=== PATIENT | female | born 1945 | race Caucasian/White ===

== ENCOUNTER → 2017-01-06 | Outpatient (CLI) | payer OTHER ==
[~2017-01-06] MED LIST: CALC500C70 PO; LEVO25TA5 PO; LOVA20TA4 PO; MULT-506 PO; RIVA1TAB4 PO; XRL15 PO
[2017-01-06 14:56] LABS: BASO % 0.7 %; BASO ABS # 0.05 K/uL (0-0.2); COMPLETE YES; EOS % 2.1 %; HEMATOCRIT 37.5 % (37-47); IG% 0.3 %; LYMPH % 33.1 %; LYMPH ABS # 2.51 K/uL (1.2-3.4); MEAN CELL VOLUME 90.4 fL (80-100); MEAN CORPUSCULAR HEMOGLOBIN 31.1 pg (25-34); MEAN CORPUSCULAR HGB CONC 34.4 g/dl (32-36); MEAN PLATELET VOLUME 10.5 fL (7.4-10.4); MONO % 7.7 %; NEUT % 56.1 %; PLATELET COUNT 266 K/uL (130-400); RED BLOOD COUNT 4.15 M/uL (4.2-5.4); WHITE BLOOD COUNT 7.58 K/uL (4.8-10.8)
[2017-01-06 15:08] LABS: ALT/SGPT 39 U/L (12-78); BLOOD UREA NITROGEN 14 mg/dl (7-18); BUN/CREATININE RATIO 18.3 (10-20); CALCIUM 9.8 mg/dl (8.5-10.1); CARBON DIOXIDE 24 mmol/L (21-32); CHLORIDE 108 mmol/L (98-107); CHOLESTEROL 182 mg/dl (0-200); CREATININE 0.77 mg/dl (0.60-1.20); GLUCOSE 93 mg/dl (70-99); POTASSIUM 3.8 mmol/L (3.5-5.1); SODIUM 141 mmol/L (136-145); TRIGLYCERIDES 225 mg/dl (0-150); VERY LOW DENSITY LIPOPROT CALC 45 mg/dl
[2017-01-06 15:18] LABS: ALB/GLOB RATIO 1.2 (0.9-2); ALKALINE PHOSPHATASE 64 U/L (45-117); AST/SGOT 28 U/L (15-37); CHOLESTEROL/HDL RATIO 3.6; HDL CHOLESTEROL 51 mg/dl; LDL CHOLESTEROL CALCULATED 86 mg/dl
== END | disposition home or self-care (01) ==
LOC: C.LABBC 09:41
PROVIDERS: ATTEND Family Medicine
DX: E03.9 Hypothyroidism, unspecified (principal); M81.0 Age-related osteoporosis without current pathological fracture; E78.00 Pure hypercholesterolemia, unspecified; Z13.0 Encounter for screening for diseases of the blood and blood-forming organs and certain disorders involving the immune mechanism

== ENCOUNTER → 2017-03-03 | Outpatient (CLI) | payer OTHER ==
--- NOTE | 2017-03-03 15:48 | MAMMOGRAPHY REPORT ---
BILATERAL DIGITAL SCREENING MAMMOGRAM WITH CAD: 03/03/2017 CLINICAL HISTORY: Routine screening. Patient has no complaints. TECHNIQUE: Bilateral CC and MLO views were obtained. Current study was also evaluated with a Comput er Aided Detection (CAD) system. COMPARISON: Comparison is made to exams dated: 02/29/2016 mammogram, 02/27/2015 mammogram - [facility], 11/11/2007, and 11/10/2006. BREAST COMPOSITION: There are scattered areas of fibroglandular density in both breasts. FINDINGS: There is stable nodular asymmetry in the medial anterior right breast, and stable focal as ymmetry in the left upper outer quadrant. No new suspicious mass, architectural distortion or clust er of microcalcifications is seen. IMPRESSION: ACR BI-RADS CATEGORY 1: NEGATIVE There is no mammographic evidence of malignancy. A 1 year screening mammogram is recommended. The p atient will receive written notification of the results. Approximately 10% of breast cancers are not detected with mammography. A negative mammographic repor t should not delay biopsy if a clinically suggestive mass is present. Danica Kaiser M.D. ay/:03/03/2017 14:40:52 Child Life Therapist: Yancy Moeller, [facility] letter sent: Normal 1/2 BI-RADS Code: ACR BI-RADS Category 1: Negative
== END | disposition home or self-care (01) ==
LOC: C.MAMM 11:25
PROVIDERS: ATTEND Family Medicine
DX: Z12.31 Encounter for screening mammogram for malignant neoplasm of breast (principal)

== ENCOUNTER 2017-03-10 17:46 | Inpatient (IN) | payer OTHER ==
[~2017-03-10] VITALS: Ht 167.6 cm; Wt 72.0 kg
[~2017-03-10 17:46] MED LIST changes: -OPTIRAY 320 IV PRN; -RIVA1TAB4 PO; -XRL15 PO
[2017-03-10 18:31] LABS: BASO % 0.3 %; BASO ABS # 0.03 K/uL (0-0.2); COMPLETE YES; EOS % 0.6 %; HEMATOCRIT 38.7 % (37-47); IG% 0.2 %; LYMPH % 19.4 %; LYMPH ABS # 1.81 K/uL (1.2-3.4); MEAN CELL VOLUME 90.8 fL (80-100); MEAN CORPUSCULAR HEMOGLOBIN 30.8 pg (25-34); MEAN CORPUSCULAR HGB CONC 33.9 g/dl (32-36); MEAN PLATELET VOLUME 9.8 fL (7.4-10.4); MONO % 11.6 %; NEUT % 67.9 %; PLATELET COUNT 231 K/uL (130-400); RED BLOOD COUNT 4.26 M/uL (4.2-5.4); WHITE BLOOD COUNT 9.32 K/uL (4.8-10.8)
[2017-03-10 18:45] LABS: PARTIAL THROMBOPLASTIN RATIO 1.1; PROTHROMBIN TIME (PATIENT) 11.1 SECONDS (9.0-12.0)
[2017-03-10 18:53] LABS: BLOOD UREA NITROGEN 15 mg/dl (7-18); BUN/CREATININE RATIO 19.2 (10-20); CARBON DIOXIDE 26 mmol/L (21-32); CHLORIDE 106 mmol/L (98-107); CREATININE 0.77 mg/dl (0.60-1.20); GLUCOSE 125 mg/dl (70-99); POTASSIUM 3.5 mmol/L (3.5-5.1); SODIUM 140 mmol/L (136-145)
[2017-03-10] MEDS ORDERED: MAGNESIUM HYDROXIDE SUSP 30 ML UDC PO PRN (20:00)
[2017-03-10] MEDS ORDERED: ONDANSETRON INJ 2 MG/ML 2 ML VIAL IV PRN (20:00)
[2017-03-10] MEDS ORDERED: ACETAMINOPHEN 325 MG TAB PO PRN (20:00)
--- NOTE | 2017-03-10 20:03 | History and Physical ---
History & Physical Date & Time of Service: March 10, 2017 at 19:54 Chief Complaint: Sent From Radiology For Pe Primary Care Physician: Jacinto Mariscal D.O.Int.Med. History of Present Illness Source: patient 71 y/o F c/o chest pain. Pt states she started having R sided chest pain under her breast moving into the R shoulder on Friday night that persisted through the weekend. It was on and off, but increasing so she saw a PA at her PCPs office. She was sent for a CXR that was neg, so a CTA was done. She was called to come to the ED because it showed b/l PEs. Pt states she did have a bit of SOB over the last few days with exertion, but not much. She more noted increased chest pain with deep breaths. No L sided chest pain. Has been eating without issue. Denies LE pain or cramping. She has been able to walk on her treadmill 5d/week as her usual. No recent extended travel or immobility. No recent surgery or procedures. She does not take any hormones. She has no personal hx of smoking, but she does have second hand exposure from her now --he in 2006,but prior to this he smoked in the home and in the car. Pt denies fever, abd pain, n/v/c/d, LE pain or swelling. ROS as noted above, otherwise neg. Last c-scope was 11/2015 and WNL Last mammo was 03/01/17 and WNL No hx of cancer Denies FH of blood clots Past Medical/Surgical History Medical Problems: (1) High cholesterol Status: Chronic (2) Hypothyroidism Status: Chronic Family History Family history was reviewed; no changes noted. Social History Smoking Status: Never Smoker (second hand exposure) Alcohol Use: none Drug Use: none Multi-Drug Resistant Organisms History of MDRO: No Allergies Coded Allergies: NO KNOWN DRUG ALLERGIES (Verified Allergy, Unknown, ., 12/11/15) Home Medications Scheduled Calcium/Vitamin D (Os-Adalberto 500 Plus D), 1 TAB PO QAM Levothyroxine Sodium (Levothyroxine Sodium), 1 TAB PO QPM Lovastatin (Mevacor), 20 MG PO QAM Multivitamin (Multivitamin), 1 TAB PO QAM Physical Exam Vital Signs Date Time Temp Pulse Resp B/P Pulse Ox O2 Delivery O2 Flow Rate FiO2 03/10/17 18:10 101 03/10/17 18:08 98 Room Air 03/10/17 17:52 36.8 61 18 160/105 92 Room Air General Appearance: WD/WN, no apparent distress Head: normocephalic, atraumatic Eyes: normal inspection Respiratory/Chest: lungs clear, normal breath sounds, no respiratory distress Cardiovascular: regular rate, rhythm, no edema Abdomen/GI: non tender, soft Extremities/Musculoskelatal: no calf tenderness, no pedal edema Neurologic/Psych: alert, oriented x 3 Skin: normal color, warm/dry Diagnostics Laboratory Results Results Past 24 Hours Test 03/10/17 18:00 03/10/17 19:46 Range/Units White Blood Count 9.32 4.8-10.8 K/uL Red Blood Count 4.26 4.2-5.4 M/uL Hemoglobin 13.1 12.0-16.0 g/dL Hematocrit 38.7 37-47 % Mean Corpuscular Volume 90.8 80-100 fL Mean Corpuscular Hemoglobin 30.8 25-34 pg Mean Corpuscular Hemoglobin Concent 33.9 32-36 g/dl Platelet Count 231 130-400 K/uL Mean Platelet Volume 9.8 7.4-10.4 fL Neutrophils (%) (Auto) 67.9 % Lymphocytes (%) (Auto) 19.4 % Monocytes (%) (Auto) 11.6 % Eosinophils (%) (Auto) 0.6 % Basophils (%) (Auto) 0.3 % Neutrophils # (Auto) 6.32 1.4-6.5 K/uL Lymphocytes # (Auto) 1.81 1.2-3.4 K/uL Monocytes # (Auto) 1.08 0.11-0.59 K/uL Eosinophils # (Auto) 0.06 0-0.5 K/uL Basophils # (Auto) 0.03 0-0.2 K/uL RDW Standard Deviation 44.8 36.4-46.3 fL RDW Coefficient of Variation 13.6 11.5-14.5 % Immature Granulocyte % (Auto) 0.2 % Immature Granulocyte # (Auto) 0.02 0.00-0.02 K/uL Prothrombin Time 11.1 9.0-12.0 SECONDS Prothromb Time International Ratio 1.0 0.9-1.1 Activated Partial Thromboplast Time 29.5 21.0-31.0 SECONDS Partial Thromboplastin Ratio 1.1 Sodium Level 140 136-145 mmol/L Potassium Level 3.5 3.5-5.1 mmol/L Chloride Level 106 98-107 mmol/L Carbon Dioxide Level 26 21-32 mmol/L Anion Gap 8.0 3-11 mmol/L Blood Urea Nitrogen 15 7-18 mg/dl Creatinine 0.77 0.60-1.20 mg/dl Est Creatinine Clear Calc Drug Dose 67.0 ml/min Estimated GFR () 89.4 Estimated GFR (Non- 77.1 BUN/Creatinine Ratio 19.2 10-20 Random Glucose 125 70-99 mg/dl Calcium Level 9.0 8.5-10.1 mg/dl Troponin I < 0.015 0-0.045 ng/ml Diagnostic Radiology CTA: 1. Study is positive for several lower lobe pulmonary emboli. 2. No evidence for a main or central pulmonary embolus. 3. Mild distention of the root of the aorta at 4.2 cm. 4. Mild right basilar/infiltrative change with a trace pleural effusion right base Impression Assessment and Plan 71 y/o F who was admitted on 03/10 for b/l PE Chest pain: b/l PE noted on CTA Etiology uncertain Neg for risk factors, although with substantial second hand smoke exposure Will need CT chest with contrast, however did have CTA today and will need to monitor renal function prior to further testing C-scope and mammo neg recently CBC WNL Hypercoag panel pending, ordered to be drawn prior to starting heparin given pt is stable Will need ongoing anticoag, CM to help with determining cost but pt would like a new anticoag agent if possible Hypothyroid: continue home meds HLD: continue home meds Other: Full code Heparin for DVT proph Reg diet Level of Care Telemetry Resuscitation Status FULL RESUSCITATION VTE Prophylaxis VTE Risk Assessment Done? Y/N: Yes Risk Level: High
[2017-03-10] MEDS ORDERED: HEPARIN SOD 5000 UNIT/0.5 ML CARP ONE (20:25)
[2017-03-10] MEDS ORDERED: HEPARIN 25000 UNIT/500 ML D5W ONE (20:25)
[2017-03-10] MEDS ORDERED: HEPARIN 25,000 UNIT/500ML D5W 500 ML IV PRN (20:45)
[2017-03-10 21:30] VITALS: BP 148/104; PULSE 91; TEMP 36.8; O2SAT 100; Ht 167.6 cm; Wt 72.0 kg
[2017-03-10 23:51] VITALS: BP 155/89; PULSE 90; TEMP 36.6; O2SAT 94
--- NOTE | 2017-03-11 01:33 | EMERGENCY ROOM VISIT NOTE ---
History Report prepared by Edu: Nico Roy Under the Supervision of: Dr. Guerrero Cid M.D. First contact with patient: 17:56 Chief Complaint: CHEST PAIN Stated Complaint: SENT FROM RADIOLOGY FOR PE History of Present Illness The patient is a 71 year old female who presents to the Emergency Room with complaints of right lower chest pain starting 2 days ago. She describes it as a sharp pain. She reports some worsening pain with deep breathing. She currently denies any chest pain. She had a CT scan today which showed pulmonary emboli. She denies fevers, severe headaches, cough, shortness of breath, heart palpitations, abdominal pain, black/bloody stools, bilateral lower extremity swelling, or any other complaints. She does not smoke cigarettes. She did not have any recent long trips. The patient walks on a treadmill about 5 days a week. She denies any personal history of cancer, internal bleeding, or low platelets. She has a history of hypothyroidism and high cholesterol but otherwise denies any other medical problems. She denies any family history of blood clots. Source of History: patient Onset: 2 days ago Position: chest (right lower) Symptom Intensity: No pain currently Quality: sharp Modifying Factors (Worsening): breathing (deep) Associated Symptoms: No SOB, No abdominal pain, No cough, No fevers, No headache Review of Systems See HPI for pertinent positives & negatives. A total of 10 systems reviewed and were otherwise negative. Past Medical & Surgical Medical Problems: (1) Chest pain (2) High cholesterol (3) Hypothyroidism Family History Patient reports no known family medical history. Social History Smoking Status: Never Smoker Marital Status: Occupation Status: retired Current/Historical Medications Scheduled Calcium/Vitamin D (Os-Adalberto 500 Plus D), 1 TAB PO QAM Levothyroxine Sodium (Levothyroxine Sodium), 1 TAB PO QPM Lovastatin (Mevacor), 20 MG PO QAM Multivitamin (Multivitamin), 1 TAB PO QAM Allergies Coded Allergies: NO KNOWN DRUG ALLERGIES (Verified Allergy, Unknown, ., 12/11/15) Physical Exam Vital Signs Date Time Temp Pulse Resp B/P Pulse Ox O2 Delivery O2 Flow Rate FiO2 03/10/17 18:10 101 03/10/17 18:08 98 Room Air 03/10/17 17:52 36.8 61 18 160/105 92 Room Air Physical Exam Constitutional: Vital signs reviewed. Eyes: Pupils are equal round reactive to light. Conjunctiva are noninjected. ENT: Pharynx is clear without erythema or exudate. Mucous membranes are moist. Neck supple without meningeal signs. Respiratory: Clear to auscultation bilaterally. Breath sounds are equal bilaterally. Cardiovascular: Regular rate and rhythm. No rubs or gallops. GI: Soft, nondistended and nontender. Bowel sounds are present. Musculoskeletal: No peripheral edema. No lower extremity tenderness. Integumentary: No cyanosis. Neurological: The patient is awake and alert. No focal deficits. Psychiatric: Slightly anxious. Medical Decision & Procedures Laboratory Results 03/10/17 18:00 Red Blood Count 4.26, Mean Corpuscular Volume 90.8, Mean Corpuscular Hemoglobin 30.8, Mean Corpuscular Hemoglobin Concent 33.9, Mean Platelet Volume 9.8, Neutrophils (%) (Auto) 67.9, Lymphocytes (%) (Auto) 19.4, Monocytes (%) (Auto) 11.6, Eosinophils (%) (Auto) 0.6, Basophils (%) (Auto) 0.3, Neutrophils # (Auto ) 6.32, Lymphocytes # (Auto) 1.81, Monocytes # (Auto) 1.08, Eosinophils # (Auto ) 0.06, Basophils # (Auto) 0.03 03/10/17 18:00 Test 03/10/17 18:00 White Blood Count 9.32 K/uL (4.8-10.8) Red Blood Count 4.26 M/uL (4.2-5.4) Hemoglobin 13.1 g/dL (12.0-16.0) Hematocrit 38.7 % (37-47) Mean Corpuscular Volume 90.8 fL (80-100) Mean Corpuscular Hemoglobin 30.8 pg (25-34) Mean Corpuscular Hemoglobin Concent 33.9 g/dl (32-36) Platelet Count 231 K/uL (130-400) Mean Platelet Volume 9.8 fL (7.4-10.4) Neutrophils (%) (Auto) 67.9 % Lymphocytes (%) (Auto) 19.4 % Monocytes (%) (Auto) 11.6 % Eosinophils (%) (Auto) 0.6 % Basophils (%) (Auto) 0.3 % Neutrophils # (Auto) 6.32 K/uL (1.4-6.5) Lymphocytes # (Auto) 1.81 K/uL (1.2-3.4) Monocytes # (Auto) 1.08 K/uL (0.11-0.59) Eosinophils # (Auto) 0.06 K/uL (0-0.5) Basophils # (Auto) 0.03 K/uL (0-0.2) RDW Standard Deviation 44.8 fL (36.4-46.3) RDW Coefficient of Variation 13.6 % (11.5-14.5) Immature Granulocyte % (Auto) 0.2 % Immature Granulocyte # (Auto) 0.02 K/uL (0.00-0.02) Prothrombin Time 11.1 SECONDS (9.0-12.0) Prothromb Time International Ratio 1.0 (0.9-1.1) Activated Partial Thromboplast Time 29.5 SECONDS (21.0-31.0) Partial Thromboplastin Ratio 1.1 Anion Gap 8.0 mmol/L (3-11) Est Creatinine Clear Calc Drug Dose 67.0 ml/min Estimated GFR () 89.4 Estimated GFR (Non- 77.1 BUN/Creatinine Ratio 19.2 (10-20) Calcium Level 9.0 mg/dl (8.5-10.1) Troponin I < 0.015 ng/ml (0-0.045) Laboratory results as reviewed by me. ECG Indication: chest pain Rate (beats per minute): 99 Rhythm: normal sinus Findings: nonspecific-ST abn (Lateral), no ectopy ED Course 1758: The patient was evaluated in room A04B. A complete history and physical exam was performed. 1818: I reevaluated the patient who is resting comfortably. I discussed the results and findings with the patient. She verbalized agreement of the treatment plan. I spoke with Dr. Galloway with [facility]. The patient will be evaluated for further management and care. Medical Decision This is a 71-year-old female presents with chest pain. I did perform a limited focused review of portions of the patient's old chart on the electronic medical record. The patient had a CT of chest today which was positive for several lower lobe pulmonary emboli. I did evaluate the patient as noted above. The patient is currently not having any chest discomfort. She has no known risk factors for pulmonary embolism but she did have a CT scan today which showed bilateral pulmonary emboli. IV access was established. The patient was placed on a continuous ekg monitor tech. I did order and personally review the patient's 12-lead EKG as described above. I did order and review the patient's blood work as noted in the electronic medical record. I did discuss the case with the management and the hospitalist and case packer and sealer. She will be hospitalized for anticoagulation and further evaluation. Consults Time Called: 1807 Consulting Physician: Dr. Galloway with [facility] Returned Call: [address] Galloway with [facility]. Impression Primary Impression: Bilateral pulmonary embolism Scribe Attestation The scribe's documentation has been prepared under my direct and personally reviewed by me in its entirety. I confirm that the note above accurately reflects all work, treatment, procedures, and medical decision making performed by me. Departure Information Dispostion Being Evaluated By Hospitalist Referrals Jacinto Mariscal, Shawn.O.Int.Med. (PCP) Patient Instructions My [facility]
[2017-03-11 03:17] LABS: PARTIAL THROMBOPLASTIN RATIO 4.2
[2017-03-11 03:29] VITALS: BP 143/83; PULSE 95; TEMP 36.6; O2SAT 97
[2017-03-11] MEDS: LEVOTHYROXINE 25 MCG TAB PO SCH (06:00)
[2017-03-11 07:33] LABS: HEMATOCRIT 34.9 % (37-47); MEAN CELL VOLUME 90.6 fL (80-100); MEAN CORPUSCULAR HEMOGLOBIN 30.9 pg (25-34); MEAN CORPUSCULAR HGB CONC 34.1 g/dl (32-36); MEAN PLATELET VOLUME 10.3 fL (7.4-10.4); PLATELET COUNT 221 K/uL (130-400); RED BLOOD COUNT 3.85 M/uL (4.2-5.4); WHITE BLOOD COUNT 9.33 K/uL (4.8-10.8)
[2017-03-11 07:55] LABS: PARTIAL THROMBOPLASTIN RATIO 2.6
[2017-03-11 08:07] VITALS: BP 143/87; PULSE 102; TEMP 36.8; O2SAT 97
[2017-03-11] MEDS: CALCIUM 600MG + VIT D 400 IU TAB PO SCH (08:12)
[2017-03-11] MEDS: MULTIVITAMIN TAB PO SCH (08:12)
[2017-03-11] MEDS: LOVASTATIN 20 MG TAB PO SCH (08:12)
[2017-03-11] MEDS ORDERED: NURSING VERBAL MED ORDER ONE (08:45)
[2017-03-11] MEDS: MoRPHine SULFATE 2 MG/ML CARP IV PRN ×2 (08:50→15:28)
[2017-03-11 12:07] LABS: PARTIAL THROMBOPLASTIN RATIO 2.4
[2017-03-11 12:45] VITALS: BP 148/60; PULSE 86; TEMP 36.9; O2SAT 92
[2017-03-11 15:30] VITALS: BP 141/58; PULSE 98; TEMP 36.9; O2SAT 96
--- NOTE | 2017-03-11 16:51 | Oncology Consultation ---
Oncology/Heme Consultation Date of Consultation: March 11, 2017. Attending Physician: Cassia Whitley MD Reason for Consultation: Unprovoked pulmonary emboli History of Present Illness Ms. Gutierrez is a 71-year-old female without much for past medical history. Over the weekend she developed right lower thoracic pleuritic-type chest pain that continued. She was evaluated and found to have bilateral pulmonary emboli on a chest CT angiogram. I'm not able to elicit a provoking reason for a thromboembolic episode. She has not been taking any sort of hormone replacement. There is not been any trauma. It is not bit a long periods of being stationary. Is not been any recent surgeries. There is no family history of thromboembolic issues.. She denies weight loss. She denies any fever or chills. She really doesn't even complain of shortness of breath. She is not seeing any blood in her stool. Colonoscopy was normal recently and a mammogram done very recently was read as benign. Past Medical/Surgical History Medical Problems: (1) Bilateral pulmonary embolism Status: Acute Family History Patient reports no known family medical history. No history of blood clots in the family Social History Negative for significant smoking or alcohol usage Smoking Status: Never Smoker Alcohol Use: none Drug Use: none Marital Status: Occupation Status: retired Allergies Coded Allergies: NO KNOWN DRUG ALLERGIES (Verified Allergy, Unknown, ., 12/11/15) Home Medications Scheduled Calcium/Vitamin D (Os-Adalberto 500 Plus D), 1 TAB PO QAM Levothyroxine Sodium (Levothyroxine Sodium), 1 TAB PO QPM Lovastatin (Mevacor), 20 MG PO QAM Multivitamin (Multivitamin), 1 TAB PO QAM Current Inpatient Medications Current Inpatient Medications Medications (Trade) Dose Ordered Sig/Jon Route Start Time Stop Time Status Last Admin Dose Admin Acetaminophen (Tylenol Tab) 650 mg Q4H PRN PO 03/10/17 20:00 04/09/17 19:59 03/11/17 04:32 650 MG Magnesium Hydroxide (Milk Of Magnesia Susp) 30 ml Q12H PRN PO 03/10/17 20:00 04/09/17 19:59 Ondansetron HCl (Zofran Inj) 4 mg Q6H PRN IV 03/10/17 20:00 04/09/17 19:59 Calcium/Vitamin D (Caltrate Plus Tab) 1 tab QAM PO 03/11/17 09:00 04/10/17 08:59 03/11/17 08:12 1 TAB Levothyroxine Sodium (Synthroid Tab) 25 mcg DAILYBB PO 03/11/17 06:00 04/10/17 05:59 03/11/17 06:00 25 MCG Lovastatin (Mevacor Tab) 20 mg QAM PO 03/11/17 09:00 04/10/17 08:59 03/11/17 08:12 20 MG Multivitamins 1 tab 1 tab QAM PO 03/11/17 09:00 04/10/17 08:59 03/11/17 08:12 1 TAB Heparin Sodium/ Dextrose (Heparin 25,000 Unit/500ml D5W) 500 ml @ 20 mls/hr Q24H PRN IV 03/10/17 20:45 04/09/17 20:44 Morphine Sulfate (MoRPHine SULFATE INJ) 2 mg Q4H PRN IV 03/11/17 09:00 03/25/17 08:59 03/11/17 15:28 2 MG Ibuprofen (Motrin Tab) 600 mg TID PRN PO 03/11/17 16:30 04/10/17 16:29 Review of Systems Constitutional: Negative for weight loss, night sweats, or fever Eyes: Negative for event change of vision ENT: Negative for epistaxis, nasal discharge, sore throat, or deafness Cardiovascular: Negative for chest pain, palpitations, dizziness, diaphoresis Respiratory: Negative for new shortness of breath,hemoptysis, or purulent cough Gastrointestinal: Negative for diarrhea, hematemesis, melena, nausea, vomiting , or dyspepsia Integumentary (skin): Negative for rash or jaundice discoloration Genitourinary: Negative for urinary frequency, hematuria, or dysuria Neurological: Negative for weakness, seizure activity, headache, or dizziness Lymphatic/Hematologic: Negative for petechiae, bleeding or new adenopathy Musculoskeletal: Negative for new joint or back pain Allergic/Immunologic: Negative for unusual rash or pruritis. Physical Exam Date Time Temp Pulse Resp B/P Pulse Ox O2 Delivery O2 Flow Rate FiO2 03/11/17 16:00 Room Air 03/11/17 15:30 36.9 98 20 141/58 96 Room Air 03/11/17 12:45 36.9 86 18 148/60 92 03/11/17 12:00 Room Air 03/11/17 08:07 36.8 102 18 143/87 97 03/11/17 08:00 Room Air 03/11/17 04:00 Room Air 03/11/17 03:29 36.6 95 17 143/83 97 Room Air 03/11/17 00:00 Room Air 03/10/17 23:51 36.6 90 17 155/89 94 Room Air 03/10/17 21:30 36.8 91 18 148/104 100 Room Air 03/10/17 20:45 36.8 90 20 157/95 98 03/10/17 20:30 90 20 157/95 98 Room Air 03/10/17 18:10 101 03/10/17 18:08 98 Room Air 03/10/17 17:52 36.8 61 18 160/105 92 Room Air Constitutional: vitals are stable. Eyes: Eyes are [place] EOMI without conjuctival erythema or icterus. ENT: External examination was negative for masses. Neck: Negative for masses or palpable thyromegaly Respiratory: Lung sounds were generally clear bilaterally Cardiovascular: Heart was RRR without significant murmur, gallops aoe rubs Gastrointestinal: No palpable hepatic or splenomegaly. The abdomen was soft with normal bowel sounds. Lymphatic system: there was no palpable peripheral lymphadenopathy Musculoskeletal System: The musculoskeletal system seemed concordant with age. Skin: The skin was negative for jaundice. Neurologic exam: The exam was negative for any focal findings. Deep tendon reflexes were equal and symmetrical. Psychiatric exam: Was essentially negative with normal mood and effect. Breast exam: Done with patient permission was negative for palpable masses or corollary supraclavicular or axillary palpable adenopathy. Exam was witnessed by either a relative, network support analyst, or clinic staff. Extremities: Negative for significant edema or erythema or tenderness. Laboratory Results Last 24 Hours Test 03/10/17 18:00 03/10/17 20:25 03/11/17 02:23 03/11/17 06:55 White Blood Count 9.32 K/uL 9.33 K/uL Red Blood Count 4.26 M/uL 3.85 M/uL Hemoglobin 13.1 g/dL 11.9 g/dL Hematocrit 38.7 % 34.9 % Mean Corpuscular Volume 90.8 fL 90.6 fL Mean Corpuscular Hemoglobin 30.8 pg 30.9 pg Mean Corpuscular Hemoglobin Concent 33.9 g/dl 34.1 g/dl Platelet Count 231 K/uL 221 K/uL Mean Platelet Volume 9.8 fL 10.3 fL Neutrophils (%) (Auto) 67.9 % Lymphocytes (%) (Auto) 19.4 % Monocytes (%) (Auto) 11.6 % Eosinophils (%) (Auto) 0.6 % Basophils (%) (Auto) 0.3 % Neutrophils # (Auto) 6.32 K/uL Lymphocytes # (Auto) 1.81 K/uL Monocytes # (Auto) 1.08 K/uL Eosinophils # (Auto) 0.06 K/uL Basophils # (Auto) 0.03 K/uL RDW Standard Deviation 44.8 fL 46.1 fL RDW Coefficient of Variation 13.6 % 13.8 % Immature Granulocyte % (Auto) 0.2 % Immature Granulocyte # (Auto) 0.02 K/uL Prothrombin Time 11.1 SECONDS Prothromb Time International Ratio 1.0 Activated Partial Thromboplast Time 29.5 SECONDS 109.9 SECONDS 67.6 SECONDS Partial Thromboplastin Ratio 1.1 4.2 2.6 Sodium Level 140 mmol/L Potassium Level 3.5 mmol/L Chloride Level 106 mmol/L Carbon Dioxide Level 26 mmol/L Anion Gap 8.0 mmol/L Blood Urea Nitrogen 15 mg/dl Creatinine 0.77 mg/dl Est Creatinine Clear Calc Drug Dose 67.0 ml/min Estimated GFR () 89.4 Estimated GFR (Non- 77.1 BUN/Creatinine Ratio 19.2 Random Glucose 125 mg/dl Calcium Level 9.0 mg/dl Troponin I < 0.015 ng/ml Test 03/11/17 11:42 Activated Partial Thromboplast Time 62.6 SECONDS Partial Thromboplastin Ratio 2.4 Assessment & Plan Patient appears to have had an unprovoked thromboembolic phenomena. I would ask for a Doppler of the lower extremities as well as an ultrasound of the abdomen. She's had a number of blood tests done looking for underlying thrombophilic issues. She is a fairly active 71-year-old female. Neurologically she is intact. Her lifestyle is such that she doesn't tend to use heavy machinery and is not prone to falling. With this sort of clot as a first event and being unprovoked, I believe that she should consider at this juncture lifelong anticoagulation. Her energy daughter were interested in Xarelto and that would be reasonable.. I will order the ultrasound of the abdomen as well as the Doppler lower extremities.
[2017-03-11] MEDS ORDERED: MoRPHine SULFATE 4 MG/ML 1 ML CARP\\VIAL IV PRN (17:00)
[2017-03-11] MEDS: IBUPROFEN 600 MG TAB PO PRN (17:40)
[2017-03-11 19:27] VITALS: BP 116/75; PULSE 97; TEMP 37.1; O2SAT 94
[2017-03-11 20:00] VITALS: O2SAT 94
--- NOTE | 2017-03-12 00:03 | Hospitalist Progress Note ---
Hospitalist Progress Note Date of Service March 11, 2017. Subjective Pt evaluation today including: conversation w/ patient, conversation w/ family Patient continues to have right-sided pleuritic chest pain. She is up-to-date on all cancer screenings, labs are normal. No symptoms of underlying malignancy but does complain of some abdominal bloating for several days. No leg pain or extremity pain or swelling except has noticed her hands are little swollen just since being admitted. Constitutional: No fever Eyes: No problem reported ENT: No sore throat Respiratory: No cough, No shortness of breath Cardiovascular: + chest pain, No edema, No palpitations Breast: No breast lump, No breast pain Abdomen: + see HPI, No GI bleeding, No constipation, No diarrhea, No nausea , No pain, No vomiting Musculoskeletal: + joint pain (right thumb and left knee chronic) Female : No abnormal vaginal bleeding, No hematuria, No vaginal discharge Neurologic: No numbness/tingling, No problem reported (no headaches) Psychiatric: No problem reported Heme: No abnormal bleeding/bruising Endo: No fatigue Skin: No new/changing skin lesions, No rash All Other Systems: Reviewed and Negative Objective Vital Signs Date Time Temp Pulse Resp B/P Pulse Ox O2 Delivery O2 Flow Rate FiO2 03/11/17 20:00 94 Room Air 03/11/17 19:27 37.1 97 20 116/75 94 Room Air 03/11/17 16:00 Room Air 03/11/17 15:30 36.9 98 20 141/58 96 Room Air 03/11/17 12:45 36.9 86 18 148/60 92 03/11/17 12:00 Room Air 03/11/17 08:07 36.8 102 18 143/87 97 03/11/17 08:00 Room Air 03/11/17 04:00 Room Air 03/11/17 03:29 36.6 95 17 143/83 97 Room Air 03/11/17 00:00 Room Air Physical Exam General Appearance: WD/WN, no apparent distress Eyes: normal inspection, PERRL, EOMI, sclerae normal ENT: hearing grossly normal, pharynx normal Neck: supple, no adenopathy, thyroid normal, no JVD, trachea midline Respiratory/Chest: lungs clear, normal breath sounds, no respiratory distress, no accessory muscle use, + decreased breath sounds (right base) Cardiovascular: regular rate, rhythm, no edema, no gallop, no murmur Abdomen: normal bowel sounds, non tender, soft, no organomegaly, no pulsatile mass Extremities: non-tender, normal inspection, no pedal edema, no calf tenderness Neurologic/Psychiatric: alert, normal mood/affect, oriented x 3 Skin: normal color, warm/dry, no rash Lymphatic: no adenopathy Laboratory Results Last 24 Hours Test 03/11/17 02:23 03/11/17 06:55 03/11/17 11:42 Activated Partial Thromboplast Time 109.9 SECONDS 67.6 SECONDS 62.6 SECONDS Partial Thromboplastin Ratio 4.2 2.6 2.4 White Blood Count 9.33 K/uL Red Blood Count 3.85 M/uL Hemoglobin 11.9 g/dL Hematocrit 34.9 % Mean Corpuscular Volume 90.6 fL Mean Corpuscular Hemoglobin 30.9 pg Mean Corpuscular Hemoglobin Concent 34.1 g/dl RDW Standard Deviation 46.1 fL RDW Coefficient of Variation 13.8 % Platelet Count 221 K/uL Mean Platelet Volume 10.3 fL Assessment and Plan 71 y/o F who was admitted on 03/10 for b/l PE that was unprovoked Chest pain: b/l PE noted on CTA, small right-sided pleural effusion likely secondary to PE Etiology uncertain Neg for risk factors, although with substantial second hand smoke exposure C-scope in 2015 negative and mammo February 2017 neg CBC WNL Hypercoag panel pending -Check lower extremity Dopplers bilaterally, checking abdominal ultrasound given abdominal bloating to rule out ovarian mass -Continue heparin drip for 48 hours and then transitioned to Xarelto as per patient's request-will need anticoagulation for 3-6 months -Continue morphine and NSAIDs as needed for pleuritic chest pain -Should have repeat chest x-ray or chest CT to ensure that pleural effusion is clearing and nothing underlying Hypothyroid: continue home meds HLD: continue home meds Other: Full code Heparin for DVT proph/treatment Reg diet
[2017-03-12 00:09] VITALS: BP 111/70; PULSE 87; TEMP 36.8; O2SAT 95
[2017-03-12 04:02] VITALS: BP 127/74; PULSE 84; TEMP 36.5; O2SAT 98
[2017-03-12] MEDS: LEVOTHYROXINE 25 MCG TAB PO SCH (06:21)
--- NOTE | 2017-03-12 07:01 | DIAGNOSTIC IMAGING REPORT ---
BILATERAL LOWER EXTREMITY VENOUS DOPPLER HISTORY: unprovoked thromboembolic episode COMPARISON STUDY: None. FINDINGS: Acute DVT right popliteal vein. All remaining venous structures are unremarkable. IMPRESSION: Acute deep venous thrombosis right popliteal vein Electronically signed by: Ben Johnson M.D. 03/12/2017 7:00 AM Dictated Date/Time: 03/12/2017 6:59 AM
[2017-03-12 07:16] LABS: BASO % 0.5 %; BASO ABS # 0.04 K/uL (0-0.2); COMPLETE YES; EOS % 1.7 %; HEMATOCRIT 35.5 % (37-47); IG% 0.2 %; LYMPH % 38.8 %; LYMPH ABS # 3.19 K/uL (1.2-3.4); MEAN CELL VOLUME 91.3 fL (80-100); MEAN CORPUSCULAR HEMOGLOBIN 30.3 pg (25-34); MEAN CORPUSCULAR HGB CONC 33.2 g/dl (32-36); MEAN PLATELET VOLUME 9.6 fL (7.4-10.4); MONO % 8.4 %; NEUT % 50.4 %; PLATELET COUNT 260 K/uL (130-400); RED BLOOD COUNT 3.89 M/uL (4.2-5.4); WHITE BLOOD COUNT 8.22 K/uL (4.8-10.8)
--- NOTE | 2017-03-12 07:16 | DIAGNOSTIC IMAGING REPORT ---
ULTRASOUND ABDOMEN COMPLETE CLINICAL HISTORY: Thromboembolic event. Pulmonary embolus. COMPARISON STUDY: No priors. TECHNIQUE: Real-time, grayscale, and color flow sonography of the abdomen was performed. Images are reviewed in the transverse and longitudinal planes. FINDINGS: Liver: The liver is normal in size and echotexture. There is no intrahepatic biliary ductal dilatation. The main portal vein is patent. Gallbladder: There is a large shadowing calcified gallstone which measures up to 2.2 cm. The gallbladder is otherwise normal in appearance. The gallbladder wall appears mildly thickened measuring 4 mm. No pericholecystic fluid is seen. A sonographic Puente's sign is reportedly present. The common bile duct measures up to 0.4 cm in diameter. Pancreas: Visualized portions of the pancreatic head and body demonstrate increased echotexture suggesting fatty replacement. The splenic vein is patent. Spleen: The spleen is normal in size and echotexture, measuring 7.6 cm in length. Kidneys: The kidneys demonstrate cortical atrophy. There is no hydronephrosis. The right kidney measures 9.6 cm in length and the left kidney measures 11.4 cm in length. No shadowing calculi are identified. A subcentimeter well-circumscribed echogenic focus in the interpolar left kidney may represent a tiny angiomyolipoma. Abdominal vasculature: Visualized portions of the abdominal aorta and IVC are normal as visualized. There is mild atherosclerotic irregularity in the abdominal aorta. Ascites: None. Pleural spaces: A small right pleural effusion is identified. IMPRESSION: 1. Cholelithiasis within a nondistended gallbladder. There is mild gallbladder wall thickening and a sonographic Puente's sign is reportedly present. Findings are equivocal for acute cholecystitis which is not excluded. Clinical correlation will be required. Consider nuclear hepatobiliary scan for further assessment. 2. Small right pleural effusion. 3. Question a subcentimeter angiomyolipoma of the left kidney. 4. Additional findings as above. Electronically signed by: Xu Watson M.D. 03/12/2017 7:15 AM Dictated Date/Time: 03/12/2017 7:10 AM
[2017-03-12 07:46] LABS: PARTIAL THROMBOPLASTIN RATIO 2.6
[2017-03-12 07:51] VITALS: BP 152/84; PULSE 98; TEMP 36.8; O2SAT 100
[2017-03-12] MEDS: CALCIUM 600MG + VIT D 400 IU TAB PO SCH (07:57)
[2017-03-12] MEDS: MULTIVITAMIN TAB PO SCH (07:58)
[2017-03-12] MEDS: LOVASTATIN 20 MG TAB PO SCH (07:58)
[2017-03-12 07:59] LABS: BUN/CREATININE RATIO 13.2 (10-20); CREATININE 0.68 mg/dl (0.60-1.20); MAGNESIUM 2.3 mg/dl (1.8-2.4); POTASSIUM 3.6 mmol/L (3.5-5.1)
--- NOTE | 2017-03-12 10:08 | Hematology/Oncology Prog Note ---
Hematology/Onc Progress Note Date of Service March 12, 2017. Diagnoses Pulmonary embolus Medications Medications Administered Medications (Trade) Dose Ordered Sig/Jon Route Start Time Stop Time Status Last Admin Dose Admin Acetaminophen (Tylenol Tab) 650 mg Q4H PRN PO 03/10/17 20:00 04/09/17 19:59 03/11/17 04:32 650 MG Calcium/Vitamin D (Caltrate Plus Tab) 1 tab QAM PO 03/11/17 09:00 04/10/17 08:59 03/12/17 07:57 1 TAB Levothyroxine Sodium (Synthroid Tab) 25 mcg DAILYBB PO 03/11/17 06:00 04/10/17 05:59 03/12/17 06:21 25 MCG Lovastatin (Mevacor Tab) 20 mg QAM PO 03/11/17 09:00 04/10/17 08:59 03/12/17 07:58 20 MG Multivitamins (Multivitamin Tab) 1 tab QAM PO 03/11/17 09:00 04/10/17 08:59 03/12/17 07:58 1 TAB Heparin Sodium/ Dextrose (Heparin 25,000 Unit/500ml D5W) 25,000 unit STK-MED ONCE .ROUTE 03/10/17 20:25 03/10/17 20:26 DC 03/10/17 20:28 25,000 UNIT Heparin Sodium (Porcine) 5000 unit 5,000 unit STK-MED ONCE .ROUTE 03/10/17 20:25 03/10/17 20:26 DC 03/10/17 20:29 5,000 UNIT Heparin Sodium/ Dextrose (Heparin 25,000 Unit/500ml D5W) 500 ml @ 20 mls/hr Q24H PRN IV 03/10/17 20:45 04/09/17 20:44 03/11/17 21:31 20 MLS/HR Morphine Sulfate (MoRPHine SULFATE INJ) 2 mg Q4H PRN IV 03/11/17 09:00 03/11/17 16:48 DC 03/11/17 15:28 2 MG Ibuprofen (Motrin Tab) 600 mg TID PRN PO 03/11/17 16:30 04/10/17 16:29 03/11/17 17:40 600 MG Subjective She is to be doing well. She really offers no new complaint. The pleuritic right chest pain is better Review of Systems: Constitutional: Negative for night sweats, or fever Eyes: Negative for event change of vision ENT: Negative for epistaxis, nasal discharge, sore throat, or deafness Cardiovascular: Negative for chest pain, palpitations, dizziness, diaphoresis Respiratory: Negative for new shortness of breath,hemoptysis, or purulent cough Gastrointestinal: Negative for diarrhea, hematemesis, melena, nausea, vomiting , or dyspepsia Integumentary (skin): Negative for rash or jaundice discoloration Genitourinary: Negative for urinary frequency, hematuria, or dysuria Neurological: Negative for weakness, seizure activity, headache, or dizziness Lymphatic/Hematologic: Negative for petechiae, bleeding or new adenopathy Musculoskeletal: Negative for new joint or back pain Allergic/Immunologic: Negative for unusual rash or pruritis. Vital Signs Vital Signs Past 12 Hours Date Time Temp Pulse Resp B/P Pulse Ox O2 Delivery O2 Flow Rate FiO2 03/12/17 08:00 Room Air 03/12/17 07:51 36.8 98 18 152/84 100 03/12/17 04:34 Room Air 03/12/17 04:02 36.5 84 16 127/74 98 Room Air 03/12/17 00:09 36.8 87 16 111/70 95 Room Air 03/12/17 00:01 Room Air Physical Exam Constitutional: vitals are stable. Eyes: Eyes are [place] EOMI without conjuctival erythema or icterus. ENT: External examination was negative for masses. Neck: Negative for masses or palpable thyromegaly Respiratory: Lung sounds were generally clear bilaterally Cardiovascular: Heart was RRR without significant murmur, gallops aoe rubs Gastrointestinal: No palpable hepatic or splenomegaly. The abdomen was soft with normal bowel sounds. Lymphatic system: there was no palpable peripheral lymphadenopathy Musculoskeletal System: The musculoskeletal system seemed concordant with age. Skin: The skin was negative for jaundice. Neurologic exam: The exam was negative for any focal findings. Deep tendon reflexes were equal and symmetrical. Psychiatric exam: Was essentially negative with normal mood and effect. Breast exam: Done yesterday was negative Extremities: Negative for edema Laboratory Last 24 Hours Test 03/11/17 11:42 03/12/17 06:50 Activated Partial Thromboplast Time 62.6 SECONDS 67.6 SECONDS Partial Thromboplastin Ratio 2.4 2.6 White Blood Count 8.22 K/uL Red Blood Count 3.89 M/uL Hemoglobin 11.8 g/dL Hematocrit 35.5 % Mean Corpuscular Volume 91.3 fL Mean Corpuscular Hemoglobin 30.3 pg Mean Corpuscular Hemoglobin Concent 33.2 g/dl Platelet Count 260 K/uL Mean Platelet Volume 9.6 fL Neutrophils (%) (Auto) 50.4 % Lymphocytes (%) (Auto) 38.8 % Monocytes (%) (Auto) 8.4 % Eosinophils (%) (Auto) 1.7 % Basophils (%) (Auto) 0.5 % Neutrophils # (Auto) 4.14 K/uL Lymphocytes # (Auto) 3.19 K/uL Monocytes # (Auto) 0.69 K/uL Eosinophils # (Auto) 0.14 K/uL Basophils # (Auto) 0.04 K/uL RDW Standard Deviation 46.2 fL RDW Coefficient of Variation 13.8 % Immature Granulocyte % (Auto) 0.2 % Immature Granulocyte # (Auto) 0.02 K/uL Erythrocyte Sedimentation Rate 63 mm/hr Sodium Level 144 mmol/L Potassium Level 3.6 mmol/L Chloride Level 108 mmol/L Carbon Dioxide Level 28 mmol/L Anion Gap 8.0 mmol/L Blood Urea Nitrogen 9 mg/dl Creatinine 0.68 mg/dl Est Creatinine Clear Calc Drug Dose 76.0 ml/min Estimated GFR () 101.3 Estimated GFR (Non- 87.4 BUN/Creatinine Ratio 13.2 Random Glucose 94 mg/dl Calcium Level 9.0 mg/dl Magnesium Level 2.3 mg/dl Assessment & Plan Seems be doing quite well. Lower extremity Dopplers to show a right popliteal vein thrombosis. Doppler of the abdomen is really unremarkable other than for gallstones that are asymptomatic and this was reviewed with the patient. A possible renal angiomyolipoma subcentimeter in size was also commented on. I suspect another abdominal sonogram with need to be done in 3-6 months to ensure stability. A number of thrombophilic tests were done and drawn while she was here. She is most likely to go home on lifelong Xarelto. We will arrange for a visit in our clinic in the next few weeks to review the results of the blood tests drawn during his admission. For now we will sign off please hesitate to really consulted necessary.
[2017-03-12] MEDS: IBUPROFEN 600 MG TAB PO PRN (10:43)
[2017-03-12 11:30] VITALS: BP_SYST 140; PULSE 88; TEMP 36.6; O2SAT 98
--- NOTE | 2017-03-12 15:24 | DIAGNOSTIC IMAGING REPORT ---
NUCLEAR HEPATOBILIARY SCAN CLINICAL HISTORY: Right upper quadrant abdominal pain. Abnormal ultrasound. COMPARISON STUDY: Abdominal ultrasound dated 03/11/2017. TECHNIQUE: Dynamic images of the liver and anterior abdomen were obtained every 5 minutes for a total of 60 minutes following the IV administration of 5.4mCi of technetium 99m Choletec. FINDINGS: The hepatobiliary scan shows prompt and homogeneous hepatic uptake. There is visualized activity within the intra and extrahepatic biliary tree at 10 minutes, and within the gallbladder at 50 minutes. There is normal biliary to bowel transit, with small bowel visualized by 15 minutes. IMPRESSION: There is no scintigraphic evidence of acute cholecystitis. Electronically signed by: Xu Watson M.D. 03/12/2017 3:23 PM Dictated Date/Time: 03/12/2017 3:18 PM
--- NOTE | 2017-03-12 15:57 | DIAGNOSTIC IMAGING REPORT ---
EXAMINATION: PELVIC ULTRASOUND CLINICAL HISTORY: bloating, DVT /PE unprovoked, rule out ovarian mass COMPARISON STUDY: None FINDINGS: The uterus measured 5.4 cm. The endometrial stripe measured 3 mm. The right ovary measured not identified. The left ovary measured not identified. There is no ultrasonographic evidence of ovarian torsion. It should be noted that ovarian torsion can be present with normal Doppler ultrasonographic findings. There was no evidence of pathologic free pelvic fluid. IMPRESSION: 1. Negative uterus. 2. Nonvisualization of the ovaries possibly due to overlying bowel content and/or age-related atrophy. 3. No evidence for mass or collection by ultrasound criteria. Electronically signed by: Ben Johnson M.D. 03/12/2017 3:55 PM Dictated Date/Time: 03/12/2017 3:54 PM
[2017-03-12] MEDS ORDERED: LOVA20TA4 PO (18:36)
[2017-03-12] MEDS ORDERED: LEVO25TA5 PO (18:36)
[2017-03-12] MEDS ORDERED: XRL15 PO (18:36)
[2017-03-12] MEDS ORDERED: RIVA1TAB4 PO (18:36)
[2017-03-12] MEDS ORDERED: RIVAROXABAN TAB 15 MG TAB PO ONE (18:45)
--- NOTE | 2017-03-12 18:49 | Discharge Instructions ---
Discharge Instructions Date of Service March 12, 2017. Admission Reason for Admission: Pulmonary embolism Discharge Discharge Diagnosis / Problem: Pulmonary embolism, DVT, Cholelithiasis Discharge Goals Goal(s): Improve disease control, Diagnostic testing, Therapeutic intervention Activity Recommendations Activity Limitations: resume your previous activity Exercise/Sports Limitations: gradually increase as tolerated Shower/Bathe: no limitations Driving or Machine Use: no limitations You are now on a blood thinner. You should always wear a helmet when riding a bike or on a motorized vehicle. You should avoid contact sports. Instructions / Follow-Up Instructions / Follow-Up You were admitted with right upper abdominal pain and right sided chest pain. You were found to have blood clots in your lungs on both sides in the lower parts of the lungs. You were also found to have a blood clot in your right leg. You were placed on an IV blood thinner and then were started on Xarelto upon discharge. This is to keep you from forming new clot while your body breaks down the old clot. You will need to stay on this for at least 6 months. You should follow up with the [employer] In[employer] Supervisor within 1 month for the results of your blood tests to check for a clotting disorder. The cause of your blood clots is not clear at this point in time. You had an abdominal ultrasound, CT of the chest, and pelvic ultrasound to look for underlying cancers. Nothing was found except that you did have gallstones and your liver enzymes were elevated on blood work. Your gallbladder was a little thickened on ultrasound and you went on to have a HIDA scan which showed you have a healthy gallbladder at this point in time. There were no other signs of infection. You should have your labs for your liver repeated tomorrow to make sure they are improving. You should also have a follow up chest xray in about 3-4 weeks to ensure that the small amount of fluid around the bottom of the right lung has resolved. Your PCP can order this. You may want to consider seeing a General Surgeon to discuss elective removal of your gallbladder after you complete 6 months of blood thinners for your blood clots. Please follow up with your PCP within 1 week. Current Hospital Diet Patient's current hospital diet: Regular Diet Discharge Diet Recommended Diet: Regular Diet Procedures Procedures Performed: HIDA scan Abdominal US Pelvic US CTA Chest Chest xray Pending Studies Studies pending at discharge: yes List of pending studies: Hypercoagulable workup Laboratory Results Lipid Panel Test 01/06/17 09:45 Range/Units Triglycerides Level 225 H 0-150 mg/dl Cholesterol Level 182 0-200 mg/dl HDL Cholesterol 51 mg/dl Cholesterol/HDL Ratio 3.6 LDL Cholesterol, Calculated 86 mg/dl Medical Emergencies . Who to Call and When: Medical Emergencies: If at any time you feel your situation is an emergency, please call 911 immediately. . Non-Emergent Contact Non-Emergency issues call your: Primary Care Provider Call Non-Emergent contact if: you have a fever, your pain is not controlled, your pain is worsening, your pain is unusual for you, your pain is concerning you, you have any medication questions . . "Provider Documentation" section prepared by Cassia Whitley. . VTE Core Measure Inpt VTE Proph given/why not?: Unfractionated heparin SQ, Other Anticoagulation (Xarelto)
[2017-03-12 18:55] VITALS: BP 140/84; PULSE 88; TEMP 36.6; O2SAT 98
--- NOTE | 2017-03-12 21:19 | Discharge Summary ---
Discharge Summary Date of Service March 12, 2017. Discharge Summary Admission Date: March 10, 2017 at 19:50 Discharge Date: March 12, 2017 Discharge Disposition: Home Principal Diagnosis: Pulmonary embolism,DVT Problems/Secondary Diagnoses: Cholelithiasis Elevated LFTs Hypothyroidism Hyperlipidemia Right-sided pleural effusion Procedures: CTA Chest: IMPRESSION: 1. Study is positive for several lower lobe pulmonary emboli. 2. No evidence for a main or central pulmonary embolus. 3. Mild distention of the root of the aorta at 4.2 cm. 4. Mild right basilar/infiltrative change with a trace pleural effusion right base ULTRASOUND ABDOMEN COMPLETE CLINICAL HISTORY: Thromboembolic event. Pulmonary embolus. COMPARISON STUDY: No priors. TECHNIQUE: Real-time, grayscale, and color flow sonography of the abdomen was performed. Images are reviewed in the transverse and longitudinal planes. FINDINGS: Liver: The liver is normal in size and echotexture. There is no intrahepatic biliary ductal dilatation. The main portal vein is patent. Gallbladder: There is a large shadowing calcified gallstone which measures up to 2.2 cm. The gallbladder is otherwise normal in appearance. The gallbladder wall appears mildly thickened measuring 4 mm. No pericholecystic fluid is seen. A sonographic Puente's sign is reportedly present. The common bile duct measures up to 0.4 cm in diameter. Pancreas: Visualized portions of the pancreatic head and body demonstrate increased echotexture suggesting fatty replacement. The splenic vein is patent. Spleen: The spleen is normal in size and echotexture, measuring 7.6 cm in length. Kidneys: The kidneys demonstrate cortical atrophy. There is no hydronephrosis. The right kidney measures 9.6 cm in length and the left kidney measures 11.4 cm in length. No shadowing calculi are identified. A subcentimeter well-circumscribed echogenic focus in the interpolar left kidney may represent a tiny angiomyolipoma. Abdominal vasculature: Visualized portions of the abdominal aorta and IVC are normal as visualized. There is mild atherosclerotic irregularity in the abdominal aorta. Ascites: None. Pleural spaces: A small right pleural effusion is identified. IMPRESSION: 1. Cholelithiasis within a nondistended gallbladder. There is mild gallbladder wall thickening and a sonographic Puente's sign is reportedly present. Findings are equivocal for acute cholecystitis which is not excluded. Clinical correlation will be required. Consider nuclear hepatobiliary scan for further assessment. 2. Small right pleural effusion. 3. Question a subcentimeter angiomyolipoma of the left kidney. 4. Additional findings as above. BILATERAL LOWER EXTREMITY VENOUS DOPPLER HISTORY: unprovoked thromboembolic episode COMPARISON STUDY: None. FINDINGS: Acute DVT right popliteal vein. All remaining venous structures are unremarkable. IMPRESSION: Acute deep venous thrombosis right popliteal vein NUCLEAR HEPATOBILIARY SCAN CLINICAL HISTORY: Right upper quadrant abdominal pain. Abnormal ultrasound. COMPARISON STUDY: Abdominal ultrasound dated 03/11/2017. TECHNIQUE: Dynamic images of the liver and anterior abdomen were obtained every 5 minutes for a total of 60 minutes following the IV administration of 5.4mCi of technetium 99m Choletec. FINDINGS: The hepatobiliary scan shows prompt and homogeneous hepatic uptake. There is visualized activity within the intra and extrahepatic biliary tree at 10 minutes, and within the gallbladder at 50 minutes. There is normal biliary to bowel transit, with small bowel visualized by 15 minutes. IMPRESSION: There is no scintigraphic evidence of acute cholecystitis. EXAMINATION: PELVIC ULTRASOUND CLINICAL HISTORY: bloating, DVT /PE unprovoked, rule out ovarian mass COMPARISON STUDY: None FINDINGS: The uterus measured 5.4 cm. The endometrial stripe measured 3 mm. The right ovary measured not identified. The left ovary measured not identified. There is no ultrasonographic evidence of ovarian torsion. It should be noted that ovarian torsion can be present with normal Doppler ultrasonographic findings. There was no evidence of pathologic free pelvic fluid. IMPRESSION: 1. Negative uterus. 2. Nonvisualization of the ovaries possibly due to overlying bowel content and/or age-related atrophy. 3. No evidence for mass or collection by ultrasound criteria. Consultations: Hematology/oncology Medication Reconciliation New Medications: Rivaroxaban (Xarelto) 15 Mg Tab 15 MG PO BIDM for 21 Days, #41 TAB Rivaroxaban (Xarelto) 20 Mg Tab 20 MG PO DAILY for 90 Days, #90 TAB take with food-DO NOT START UNTIL AFTER 3 WEEKS OF TAKING THE 15MG DOSE Changed Medications: Levothyroxine Sodium (Levothyroxine Sodium) 25 Mcg Tab 1 TAB PO QAM for 30 Days, TAB (Changed from: QPM) on an empty stomach Lovastatin (Mevacor) 20 Mg Tab 20 MG PO QAM for 30 Days, TAB (Medication details modified) HOLD UNTIL YOUR LIVER TESTS RETURN TO NORMAL Continued Medications: Calcium/Vitamin D (Os-Adalberto 500 Plus D) Tab 1 TAB PO QAM, TAB Multivitamin (Multivitamin) Tab 1 TAB PO QAM, TAB Discharge Exam Patient had no abdominal or chest pain, was feeling very well. She denied any nausea or vomiting, no shortness of breath. Reviewed all results with her of blood work and imaging studies. Review of Systems: Constitutional: No fever Eyes: No problem reported ENT: No problem reported Respiratory: No shortness of breath Cardiovascular: No chest pain Abdomen: No nausea, No pain, No vomiting Musculoskeletal: No joint pain Genitourinary - Female: No problem reported Neurologic: No problem reported Endocrine: No problem reported Hematologic / Lymphatic: No problem reported Integumentary: No problem reported Physical Exam: General Appearance: WD/WN, no apparent distress Eyes: normal inspection, sclerae normal ENT: hearing grossly normal Neck: trachea midline Respiratory/Chest: lungs clear, normal breath sounds (except slightly diminished at the right base), no respiratory distress, no accessory muscle use Cardiovascular: regular rate, rhythm, no edema, no gallop, no JVD, no murmur , normal peripheral pulses Abdomen / GI: normal bowel sounds, non tender (and negative Puente's sign), soft, no organomegaly, no pulsatile mass Extremities: normal inspection, no calf tenderness, normal capillary refill , no pedal edema, normal range of motion Neurologic/Psychiatric: alert, normal mood/affect, oriented x 3 Skin: normal color, warm/dry, no rash Lymphatic: no adenopathy Hospital Course 71 y/o F c/o chest pain. Pt states she started having R sided chest pain under her breast moving into the R shoulder on Friday night that persisted through the weekend. It was on and off, but increasing so she saw a PA at her PCPs office. She was sent for a CXR that was neg, so a CTA was done. She was called to come to the ED because it showed b/l PEs. Pt states she did have a bit of SOB over the last few days with exertion, but not much. She more noted increased chest pain with deep breaths. No L sided chest pain. Has been eating without issue. She did report some radiation of the pain to the right shoulder. Denies LE pain or cramping. She has been able to walk on her treadmill 5d/week as her usual. No recent extended travel or immobility. No recent surgery or procedures. She does not take any hormones. She has no personal hx of smoking, but she does have second hand exposure from her now --he in 2006,but prior to this he smoked in the home and in the car. Pt denies fever, abd pain, n/v/c/d, LE pain or swelling. 71 y/o F who was admitted on 03/10 for b/l PE that was unprovoked: Chest pain: b/l PE noted on CTA, small right-sided pleural effusion likely secondary to PE. Found to have a right lower extremity popliteal DVT as well. Etiology uncertain Neg for risk factors, although with substantial second hand smoke exposure C-scope in 2015 negative and mammo February 2017 neg CBC WNL Hypercoag panel pending and will need to be followed up on as an outpatient either with PCP or with hematology - abdominal ultrasound only showed small probable angiomyolipoma the left kidney as well as large gallstone and mild thickening of the gallbladder -HIDA scan negative for acute cholecystitis, LFTs elevated-likely passed a gallstone recently and this was the true cause of her right-sided chest pain-I suspect the bilateral PEs and DVT were and incidental finding -Pelvic ultrasound unable to visualize ovaries as they're likely atrophic, no abnormal masses in the pelvis -Remained on heparin drip for 48 hours and then transitioned to Xarelto as per patient's request-will need anticoagulation for at least 6 months -Should have repeat chest x-ray or chest CT to ensure that pleural effusion is clearing and nothing underlying in about 3-4 weeks Elevated LFTs, cholelithiasis-no signs or symptoms of acute cholecystitis with negative HIDA scan. Right-sided chest and right upper quadrant pain now completely resolved. -Recommend repeating LFTs as an outpatient tomorrow to ensure that they're trending back downward -Recommend elective cholecystectomy in the future after she has been on anticoagulation for for at least 6 months as she would not want to interrupt her treatment course of her pulmonary emboli prior to that in order to have surgery Hypothyroid: Stable, continue home meds HLD: Stable, continue home meds Other: Full code Heparin for DVT proph/treatment Reg diet Total Time Spent: Greater than 30 minutes This includes examination of the patient, discharge planning, medication reconciliation, and communication with other providers. Discharge Instructions Please refer to the electronic Patient Visit Report (Discharge Instructions) for additional information. Follow-Up With PCP within one week With hematology within 1-2 weeks Check LFTs and acute hepatitis panel in 1 day with results to go to PCP. Additional Copies To Manan Styles D.O.; Jacinto Mariscal D.O.Int[facility]Med.
[2017-03-15 10:36] LABS: ANTITHROMBINIII ACTIVITY** 86 % activity (80-120); B2 GLYCOPROTEIN IGA <9 SAU (<=20); B2 GLYCOPROTEIN IGG <9 SGU (<=20); B2 GLYCOPROTEIN IGM 26 SMU (<=20); LUPUS ANTICOAGULANT** TC36573X Positive (Negative); PROTEIN C ACTIVITY** TC 1777X 95 % (70-180); PROTEIN S ACT(FUNCT)**1779X 85 % (60-140)
== END 2017-03-12 18:40 | disposition home or self-care (01) | DRG 176 ==
LOC: ENRESERVDT → ENRESERVTM → C.EDB 17:47 → C.2T 19:50
PROVIDERS: ADMIT Family Medicine; ATTEND Family Medicine
DX: I26.99 Other pulmonary embolism without acute cor pulmonale (principal); I82.431 Acute embolism and thrombosis of right popliteal vein; E03.9 Hypothyroidism, unspecified; E78.5 Hyperlipidemia, unspecified; R07.9 Chest pain, unspecified; E78.00 Pure hypercholesterolemia, unspecified; R79.89 Other specified abnormal findings of blood chemistry; K80.20 Calculus of gallbladder without cholecystitis without obstruction; Z79.899 Other long term (current) drug therapy

== ENCOUNTER → 2017-03-10 | Outpatient (CLI) | payer OTHER ==
--- NOTE | 2017-03-10 13:38 | DIAGNOSTIC IMAGING REPORT ---
RIGHT RIBS UNILATERAL WITH PA CHEST CLINICAL HISTORY: R07.81 Rib pain on right side Right COMPARISON STUDY: None. FINDINGS: No rib fractures. No pneumothorax. The heart is normal in size. The left lung is clear. Small right pleural effusion. Linear densities at the right lung base. IMPRESSION: 1. No rib fractures. No pneumothorax. 2. Small right pleural effusion. 3. Right basilar linear densities favor subsegmental atelectasis. Electronically signed by: Zachariah Chilel M.D. 03/10/2017 1:37 PM Dictated Date/Time: 03/10/2017 1:35 PM
== END | disposition home or self-care (01) ==
LOC: C.RADBC 11:38
PROVIDERS: ATTEND Physician Assistant
DX: R07.81 Pleurodynia (principal)

== ENCOUNTER → 2017-03-10 | Outpatient (CLI) | payer OTHER ==
[~2017-03-10] MED LIST changes: +OPTIRAY 320 IV PRN
--- NOTE | 2017-03-10 17:24 | DIAGNOSTIC IMAGING REPORT ---
CHEST CTA for PULMONARY ARTERIES CT DOSE: 299.70 mGy.cm HISTORY: Chest pain. Dyspnea. R79.89 Elevated [id number] TECHNIQUE: Multiaxial CT images of the chest were performed following the intravenous administration of contrast to evaluate the pulmonary arteries. Maximal intensity projection images were also obtained. COMPARISON STUDY: None. FINDINGS: . Aorta is somewhat distended at 4.2 cm. No evidence for dissection. The pulmonary arterial vasculature shows several filling defects involving the lower lobe pulmonary vasculature bilaterally. No evidence for a central embolus. The lung parenchyma demonstrates atelectatic and/or infiltrative change right lung base with a trace right basilar pleural effusion. There is a very small hiatal hernia. IMPRESSION: 1. Study is positive for several lower lobe pulmonary emboli. 2. No evidence for a main or central pulmonary embolus. 3. Mild distention of the root of the aorta at 4.2 cm. 4. Mild right basilar/infiltrative change with a trace pleural effusion right base Electronically signed by: Ben Johnson M.D. 03/10/2017 5:23 PM Dictated Date/Time: 03/10/2017 5:19 PM
== END | disposition home or self-care (01) ==
LOC: C.CTS 17:00
PROVIDERS: ATTEND Physician Assistant
DX: R79.89 Other specified abnormal findings of blood chemistry (principal)

== ENCOUNTER → 2017-03-13 | Outpatient (CLI) | payer OTHER ==
[~2017-03-13] MED LIST changes: +RIVA1TAB4 PO; +XRL15 PO
== END | disposition home or self-care (01) ==
LOC: C.LABBC 11:20
PROVIDERS: ATTEND Family Medicine
DX: R79.89 Other specified abnormal findings of blood chemistry (principal)

== ENCOUNTER → 2017-04-02 | Outpatient (CLI) | payer OTHER ==
--- NOTE | 2017-04-02 10:44 | DIAGNOSTIC IMAGING REPORT ---
CHEST 2 VIEWS ROUTINE CLINICAL HISTORY: J90 Pleural [id number] COMPARISON STUDY: 03/08/2017 FINDINGS: The cardiac and mediastinal contours remain stable. There has been resolution of the previous identified pleural effusions. There is no focal pulmonary consolidation. There is no failure. A vague area of increased density overlying the mid aspect of the right hemidiaphragm on the PA film, likely represents a summation.[ IMPRESSION: Interval resolution of the bilateral pleural effusions. No evidence of acute parenchymal consolidation. Electronically signed by: Evelio Lane M.D. 04/02/2017 10:42 AM Dictated Date/Time: 04/02/2017 10:41 AM
== END | disposition home or self-care (01) ==
LOC: C.RADBC 10:22
PROVIDERS: ATTEND Family Medicine
DX: J90 Pleural effusion, not elsewhere classified (principal)

== ENCOUNTER → 2017-06-16 | Outpatient (CLI) | payer OTHER ==
[2017-06-21 05:29] LABS: B2 GLYCOPROTEIN IGA 10 SAU (<=20); B2 GLYCOPROTEIN IGG <9 SGU (<=20); B2 GLYCOPROTEIN IGM 35 SMU (<=20)
== END | disposition home or self-care (01) ==
LOC: C.LABBC 10:28
PROVIDERS: ATTEND Internal Medicine Hematology & Oncology
DX: I26.99 Other pulmonary embolism without acute cor pulmonale (principal)

== ENCOUNTER → 2017-09-18 | Outpatient (CLI) | payer OTHER ==
[2017-09-18 11:37] LABS: BLOOD UREA NITROGEN 16 mg/dl (7-18); CREATININE 0.78 mg/dl (0.60-1.20); GLUCOSE 95 mg/dl (70-99)
[2017-09-18 11:38] LABS: ALKALINE PHOSPHATASE 85 U/L (45-117); AST/SGOT 28 U/L (15-37); BUN/CREATININE RATIO 20.5 (10-20); CARBON DIOXIDE 25 mmol/L (21-32); CHLORIDE 108 mmol/L (98-107); CHOLESTEROL 167 mg/dl (0-200); POTASSIUM 3.9 mmol/L (3.5-5.1); SODIUM 138 mmol/L (136-145)
[2017-09-18 11:39] LABS: ALB/GLOB RATIO 0.9 (0.9-2); ALT/SGPT 37 U/L (12-78); CHOLESTEROL/HDL RATIO 3.1; HDL CHOLESTEROL 54 mg/dl; LDL CHOLESTEROL CALCULATED 78 mg/dl; TRIGLYCERIDES 175 mg/dl (0-150); VERY LOW DENSITY LIPOPROT CALC 35 mg/dl
== END | disposition home or self-care (01) ==
LOC: C.LABBC 08:59
PROVIDERS: ATTEND Physician Assistant
DX: E78.00 Pure hypercholesterolemia, unspecified (principal)

== ENCOUNTER → 2017-11-22 | Outpatient (CLI) | payer OTHER | END | disposition home or self-care (01) | LOC: C.LABSPEC 12:21 | PROVIDERS: ATTEND Internal Medicine | DX: R30.0 Dysuria (principal) ==

== ENCOUNTER → 2018-01-12 | Outpatient (CLI) | payer OTHER ==
[2018-01-12 13:50] LABS: HEMATOCRIT 37.5 % (37-47); HEMOGLOBIN 12.6 g/dL (12.0-16.0); MEAN CELL VOLUME 89.9 fL (80-100); MEAN CORPUSCULAR HEMOGLOBIN 30.2 pg (25-34); MEAN CORPUSCULAR HGB CONC 33.6 g/dl (32-36); MEAN PLATELET VOLUME 10.2 fL (7.4-10.4); PLATELET COUNT 297 K/uL (130-400); RED CELL DISTRIBUTION WIDTH CV 15.1 % (11.5-14.5); RED CELL DISTRIBUTION WIDTH SD 49.7 fL (36.4-46.3); WHITE BLOOD COUNT 7.09 K/uL (4.8-10.8)
[2018-01-12 14:18] LABS: ALBUMIN 3.8 gm/dl (3.4-5.0); BLOOD UREA NITROGEN 16 mg/dl (7-18); CARBON DIOXIDE 23 mmol/L (21-32); CREATININE 0.82 mg/dl (0.60-1.20); GLUCOSE 93 mg/dl (70-99); POTASSIUM 3.7 mmol/L (3.5-5.1); SODIUM 138 mmol/L (136-145)
[2018-01-12 14:29] LABS: ALKALINE PHOSPHATASE 85 U/L (45-117); ALT/SGPT 29 U/L (12-78); AST/SGOT 23 U/L (15-37); CHOLESTEROL 170 mg/dl (0-200); LDL CHOLESTEROL CALCULATED 83 mg/dl; TOTAL PROTEIN 7.7 gm/dl (6.4-8.2)
== END | disposition home or self-care (01) ==
LOC: C.LABBC 10:12
PROVIDERS: ATTEND Nurse Practitioner Adult Health
DX: Z13.0 Encounter for screening for diseases of the blood and blood-forming organs and certain disorders involving the immune mechanism (principal); E03.9 Hypothyroidism, unspecified; E78.00 Pure hypercholesterolemia, unspecified; R79.89 Other specified abnormal findings of blood chemistry; D68.61 Antiphospholipid syndrome

== ENCOUNTER → 2018-03-05 | Outpatient (CLI) | payer OTHER ==
--- NOTE | 2018-03-05 15:31 | MAMMOGRAPHY REPORT ---
BILATERAL DIGITAL SCREENING MAMMOGRAM TOMOSYNTHESIS WITH CAD: 03/05/2018 CLINICAL HISTORY: Routine screening. Patient has no complaints. TECHNIQUE: Breast tomosynthesis in addition to standard 2D mammography was performed. Current study was also evaluated with a Computer Aided Detection (CAD) system. COMPARISON: Comparison is made to exams dated: 03/03/2017 mammogram, 02/29/2016 mammogram, 02/27/2015 m ammogram - [facility], 11/11/2007, and 11/10/2006. BREAST COMPOSITION: There are scattered areas of fibroglandular density in both breasts. FINDINGS: No suspicious masses, calcifications, or areas of architectural distortion are noted in ei ther breast. There has been no significant interval change compared to prior exams. Bilateral asymme tries are stable, including a nodular focal asymmetry in the left upper outer quadrant which is stabl e dating back to at least the 2008 exam and considered benign given long-term stability. IMPRESSION: ACR BI-RADS CATEGORY 2: BENIGN There is no mammographic evidence of malignancy. A 1 year screening mammogram is recommended. The pa tient will receive written notification of the results. Approximately 10% of breast cancers are not detected with mammography. A negative mammographic report should not delay biopsy if a clinically suggestive mass is present. Umm Hull M.D. /:03/05/2018 12:09:12 [employer] Systems Installer: Kira DINH(Ravinder)(M), [facility] letter sent: Normal 1/2 BI-RADS Code: ACR BI-RADS Category 2: Benign
== END | disposition home or self-care (01) ==
LOC: C.MAMM 11:11
PROVIDERS: ATTEND Nurse Practitioner Adult Health
DX: Z12.31 Encounter for screening mammogram for malignant neoplasm of breast (principal)

== ENCOUNTER 2025-07-03 04:03 | Inpatient (IN) ==
[2025-07-03 04:53] LABS: Hematocrit (blood only) 35.9 % (37.0-47.0); Hemoglobin 11.8 g/dl (12.0-16.0); Immature Granulocytes # (auto) 0.04 K/uL (0.01-0.20); Immature Granulocytes % (auto) 0.3 %; Mean Corpuscular Hemoglobin 29.5 pg (25.0-34.0); Mean Corpuscular Volume 89.8 fL (80.0-100.0); Platelet Count 342 K/uL (130-400); RDW Standard Deviation 46.6 fL (36.4-46.3); Red Blood Count 4.00 M/uL (4.20-5.40); White Blood Count 11.56 K/ul (4.8-10.8)
[2025-07-03 05:01] LABS: Alanine Aminotransferase 47.0 U/L (7-52); Albumin Globulin Ratio 1.2 (0.9-2); Alkaline Phosphatase 138.0 U/L (34-104); Anion Gap 10.0 (3-11); Bilirubin,Total 1.0 mg/dl (0.2-1.0); Blood Urea Nitrogen 18.0 mg/dl (6-23); Calcium 9.1 mg/dl (8.6-10.3); Carbon Dioxide 18.0 mmol/L (21-32); Chloride 108.0 mmol/L (98-107); Creatinine Clr Calc Pharmacy 56.1 ml/min; Globulin 3.3 gm/dl (2.5-4.0); Glucose 130.0 mg/dl (70-99(Fasting)); Potassium 3.5 mmol/L (3.5-5.1); Sodium 136.0 mmol/L (136-145); Total Protein 7.1 gm/dl (6.0-8.3)
--- NOTE | 2025-07-03 05:07 | Emergency Department Note ---
Impression & Plan GI bleed Admit to the [facility] ED Provider Note NAME: JACKIE SHELTON AGE: 79 SEX: Female INFORMANT: Patient ED PROVIDER(S): Sondra Wright DO CHIEF COMPLAINT: Dark tarry stools PLAN: Disposition: Admit to the [facility] MEDICAL DECISION MAKING: Thiss is an 79-year-old female patient who who presents to the emergency department with multiple dark tarry stools since 11 AM this morning. The patient does take Eliquis. She feels increasingly fatigued and was having some lower abdominal pain. She describes nausea but no vomiting. Patient suffered a fall on June 23 where she fell backwards in her bathroom. She was seen here in the emergency department for this. Patient has been taking moderate amount of daily Tylenol for the pain from this fall. Laboratory studies reveal acetaminophen level of 4. Hemoglobin is 11.8 down 1 g in the past 10 days. Coagulation studies were normal. Glucose was 130. White count was 11.5. I did a rectal exam on the patient and there was soft brown stool that was Hemoccult positive. There was no obvious melena or active bleeding at this time. Patient initially complained of abdominal pain on presentation to the emergency department but this has since resolved. I remain concerned about the patient's episodes of melena today and her drop in hemoglobin. [facility] and [facility] will [facility] for further inpatient care. Care/management discussed with: road manager and [facility] Triage Nursing notes: reviewed and agree With them. Vital Signs: reviewed and remarkable for hypertension and tachycardia Chronic Medical/Social Conditions affecting care: previous history of clots-on Eliquis Differential Diagnosis: upper GI bleed, lower GI bleed, anemia, anxiety, weakness Diagnostics, independently interpreted by me: ECG: normal sinus rhythm at a rate of 100. There is no ST segment elevation or signs of ischemia. There is no ectopy. Cardiac Monitoring: Sinus tachycardia at a rate of 104 HPI: 79 year old Female arrives for evaluation of dark tarry stool. patient developed this suddenly today around 11 AM and has had 4 subsequent bowel movements that were the same. Patient initially describes some lower abdominal pain but that has since resolved. She does describe nausea and fatigue. PAST MEDICAL HISTORY: See Below, PAST SURGICAL HISTORY: See Below, SOCIAL HISTORY: See Below, HOME MEDICATIONS: See list ALLERGIES: none VITALS: See Below PHYSICAL EXAMINATION: HEENT: Head - normocephalic and atraumatic. Pupils are equal, round, and reactive to light. Extraocular eye muscles are intact, and sclera are anicteric. Nose - moist nasal mucosa without discharge. Mouth - moist buccal mucosa. Oropharynx is nonerythematous and there is no tonsillar exudate or edema noted. Neck: Supple; no JVD or cervical lymphadenopathy Heart: Tachycardic rate and regular rhythm. There is a normal S1 and S2 with no murmurs, clicks, or gallops appreciated. Lungs: Clear to auscultation bilaterally with no wheezes, rales, or rhonchi. Abdomen: Soft, completely nontender, nondistended, with good bowel sounds. There are no palpable pulsatile masses or hepatosplenomegaly. There is no guarding, rigidity, or rebound noted. Extremities: No evidence of cyanosis, clubbing, or edema. There are easily palpable peripheral pulses. Skin: pale, warm and dry with good turgor and no rashes. Rectal exam: Externally there were no findings. On digital exam, there was soft brown stool which was Hemoccult positive. Emergency department treatment: ekg monitor, lidocaine patch for her back Emergency department course: This is an 79-year-old female patient who was evaluated in room B-9. A complete history and physical was performed. An order was placed for continuous cardiac monitoring. The patient was in a sinus tachycardia at a rate of 104. A twelve-lead EKG was obtained. Patient complained of some chronic back pain and requested a lidocaine patch. This was applied. A rectal exam was performed and revealed soft brown stool. This was Hemoccult positive. I reviewed the laboratory studies with the patient. She was quite anxious about the situation. She has had colonoscopies in the past which were normal but the last was approximately 10 years ago. I discussed the case with the [facility]ist and they will evaluate for further inpatient care. 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 Hx of rheumatic fever AT AGE 12 History of back pain MUSCLE SPASMS IN PAST (REASON FOR FLEXERIL) Osteoporosis Surgical History History of dilatation and curettage History of bilateral tubal ligation History of tooth extraction History of cataract surgery RT H/O colonoscopy Family History Mother Breast cancer Father Stomach cancer Prostate cancer Other No family history of adverse response to anesthesia Denies family history of Ovarian cancer Diabetes Heart disease Myocardial infarction Lung cancer Colorectal cancer Hypertension Stroke Social History Smoking Status: Former smoker Tobacco Type: Cigarettes Age Started Using Tobacco: 21; Age Quit Using Tobacco: 29; packs per day: 0.5; Second Hand Exposure: No; Do You Dip or Chew Tobacco: No; Hx Alcohol Use: No Hx Substance Use: No Preferred Language: Indonesian Communication Ability: Effective Visual Impairment: No Limitations Hearing Ability: Hard of Hearing Wedding Planner Required: No Beliefs That Will Affect Care: None marital status: / Current Living Situation: Alone current occupational status: retired How many Children do You have: 2 Feels Safe at Home: Yes Childhood Exposure to Second-Hand Smoke: Yes Diet: regular caffeine: Yes Dental Care, Regularly: Yes Physical Activity Frequency: 3-4 Times per Week Physical Activity Frequency Comment: treadmill Seatbelt Use: always Sunscreen Use: Yes Do you think of yourself as: straight/heterosexual Assistive Devices: None Allergies Allergies Allergy/AdvReac Type Severity Reaction Status Date / Time No Known Drug Allergies Allergy Unknown . Verified 06/23/25 10:26 Home Meds Home Medications Medication Instructions Recorded Confirmed multivitamin (Daily Multi-Vitamin 1 tab PO QAM 07/14/19 07/03/25 tablet) calcium 600 mg (as 1 tab PO BID 05/26/23 07/03/25 carbonate)-vitamin D3 5 mcg (200 unit) tablet Previous Rx's Medication Instructions Recorded apixaban 5 mg tablet 5 mg PO BID #180 tabs 12/02/24 levothyroxine 50 mcg tablet 50 mcg PO DAILY #90 tabs 12/02/24 lovastatin 20 mg tablet 20 mg PO DAILY #90 tabs 12/02/24 telmisartan 40 mg tablet 40 mg PO DAILY #90 tabs 12/02/24 lidocaine 5 % topical patch 1 patch topical DAILY PRN pain #15 06/26/25 ea oxycodone 5 mg tablet 2.5 mg (1/2 x 5 mg) PO Q8H PRN 06/26/25 pain #6 tabs baclofen 10 mg tablet 5 mg (1/2 x 10 mg) PO TID PRN 07/01/25 muscle spasm #12 tabs Results & Data (ED) Vital Signs Vital Signs - 24 hr 07/03/25 03:57 07/03/25 04:07 07/03/25 04:32 Temperature 36.4 C L Temperature Source Oral Pulse Rate 106 H 104 H Pulse Rate from SpO2 Sensor Respiratory Rate 18 Respiratory Effort / Characteristics Non-Labored Non-Labored Respiratory Depth Normal Normal Blood Pressure 163/94 H Blood Pressure Mean 117 Pulse Oximetry 96 Oxygen Delivery Method Room Air Sepsis Recent Fever Within 48 Hours No Sepsis New/Unexplained Change in Mental Status No Sepsis Action Taken by Nursing No Action Required 07/03/25 04:35 07/03/25 05:44 07/03/25 06:57 Temperature Temperature Source Pulse Rate 95 H 94 H Pulse Rate from SpO2 Sensor 95 H Respiratory Rate 20 19 Respiratory Effort / Characteristics Respiratory Depth Blood Pressure 163/89 H 141/104 H Blood Pressure Mean 113 116 Pulse Oximetry 99 100 Oxygen Delivery Method Room Air Room Air Sepsis Recent Fever Within 48 Hours Sepsis New/Unexplained Change in Mental Status Sepsis Action Taken by Nursing 07/03/25 07:30 07/03/25 07:30 07/03/25 07:53 Temperature Temperature Source Pulse Rate 103 H 92 H Pulse Rate from SpO2 Sensor Respiratory Rate 23 21 Respiratory Effort / Characteristics Respiratory Depth Blood Pressure 152/82 H 152/82 H 156/91 H Blood Pressure Mean 102 102 111 Pulse Oximetry 100 96 Oxygen Delivery Method Room Air Room Air Sepsis Recent Fever Within 48 Hours Sepsis New/Unexplained Change in Mental Status Sepsis Action Taken by Nursing Laboratory Data 07/03/25 17:14 07/03/25 04:35 Lab Results 07/03/25 07/03/25 07/03/25 Range/Units 04:15 04:35 05:18 WBC 11.56 H (4.8-10.8) K/ul RBC 4.00 L (4.20-5.40) M/uL Hgb 11.8 L (12.0-16.0) g/dl Hct 35.9 L (37.0-47.0) % MCV 89.8 (80.0-100.0) fL MCH 29.5 (25.0-34.0) pg MCHC 32.9 (32.0-36.0) g/dL RDW Std Deviation 46.6 H (36.4-46.3) fL RDW Coeff of Eva 14.3 (11.5-14.5) % Plt Count 342 (130-400) K/uL MPV 10.1 (9.4-12.4) fL Immature Gran % (Auto) 0.3 % Neut % (Auto) 72.2 % Lymph % (Auto) 17.7 % Putnam % (Auto) 8.5 % Eos % (Auto) 0.8 % Baso % (Auto) 0.5 % Neut # (Auto) 8.34 H (1.40-6.50) K/uL Lymph # (Auto) 2.05 (1.20-3.40) K/uL Putnam # (Auto) 0.98 H (0.11-0.59) K/uL Eos # (Auto) 0.09 (0.00-0.50) K/uL Baso # (Auto) 0.06 (0.00-0.20) K/uL Immature Gran # (Auto) 0.04 (0.01-0.20) K/uL PT 10.6 (9.0-12.0) Seconds INR 1.0 (0.9-1.1) APTT 31 (21-31) Seconds PTT Ratio 1.2 Sodium 136 (136-145) mmol/L Potassium 3.5 (3.5-5.1) mmol/L Chloride 108 H (98-107) mmol/L Carbon Dioxide 18 L (21-32) mmol/L Anion Gap 10 (3-11) BUN 18 (6-23) mg/dl Creatinine 0.72 (0.6-1.2) mg/dl Est Cr Clr Drug Dosing 56.1 ml/min eGFR 84.47 BUN/Creatinine Ratio 25.0 H (10-20) Glucose 130 H (70-99(Fasting)) mg/dl Calcium 9.1 (8.6-10.3) mg/dl Total Bilirubin 1.0 (0.2-1.0) mg/dl AST 38 (13-39) U/L ALT 47 (7-52) U/L Alkaline Phosphatase 138 H (34-104) U/L Total Protein 7.1 (6.0-8.3) gm/dl Albumin 3.8 (3.4-5.0) gm/dl Globulin 3.3 (2.5-4.0) gm/dl Albumin/Globulin Ratio 1.2 (0.9-2) Acetaminophen 4 L (10-30) ug/ml Blood Type A Positive Antibody Screen NEGATIVE 07/03/25 Range/Units 07:38 WBC 12.57 H (4.8-10.8) K/ul RBC 3.78 L (4.20-5.40) M/uL Hgb 11.2 L (12.0-16.0) g/dl Hct 33.9 L (37.0-47.0) % MCV 89.7 (80.0-100.0) fL MCH 29.6 (25.0-34.0) pg MCHC 33.0 (32.0-36.0) g/dL RDW Std Deviation 45.9 (36.4-46.3) fL RDW Coeff of Eva 14.2 (11.5-14.5) % Plt Count 321 (130-400) K/uL MPV 9.7 (9.4-12.4) fL Immature Gran % (Auto) % Neut % (Auto) % Lymph % (Auto) % [place] % (Auto) % Eos % (Auto) % Baso % (Auto) % Neut # (Auto) (1.40-6.50) K/uL Lymph # (Auto) (1.20-3.40) K/uL [place]nam # (Auto) (0.11-0.59) K/uL Eos # (Auto) (0.00-0.50) K/uL Baso # (Auto) (0.00-0.20) K/uL Immature Gran # (Auto) (0.01-0.20) K/uL PT (9.0-12.0) Seconds INR (0.9-1.1) APTT (21-31) Seconds PTT Ratio Sodium (136-145) mmol/L Potassium (3.5-5.1) mmol/L Chloride (98-107) mmol/L Carbon Dioxide (21-32) mmol/L Anion Gap (3-11) BUN (6-23) mg/dl Creatinine (0.6-1.2) mg/dl Est Cr Clr Drug Dosing ml/min eGFR BUN/Creatinine Ratio (10-20) Glucose (70-99(Fasting)) mg/dl Calcium (8.6-10.3) mg/dl Total Bilirubin (0.2-1.0) mg/dl AST (13-39) U/L ALT (7-52) U/L Alkaline Phosphatase (34-104) U/L Total Protein (6.0-8.3) gm/dl Albumin (3.4-5.0) gm/dl Globulin (2.5-4.0) gm/dl Albumin/Globulin Ratio (0.9-2) Acetaminophen (10-30) ug/ml Blood Type Antibody Screen Administered Medications Lactated Ringer's (Lr) 1,000 mls @ 100 mls/hr IV .Q10H ERICA Stop: 07/06/25 13:03 Last Admin: 07/03/25 14:20 Dose: 100 mls/hr Documented By: KELLY Pantoprazole Sodium 40 mg/ (Dextrose) 100 mls @ 20 mls/hr IV Q5H [facility] Stop: 08/02/25 13:29 Last Admin: 07/03/25 14:20 Dose: 8 mg/hr, 20 mls/hr Documented By: KELLY Piperacillin Sod/Tazobactam Sod (Zosyn) 4.5 gm in 100 mls @ 25 mls/hr IV Q8H [facility]; Protocol Stop: 07/13/25 13:59 Last Infusion: 07/03/25 18:30 Dose: Infused Documented By: KELLY(2) Admin: 07/03/25 14:43 Dose: 25 mls/hr Documented By: TLM Discontinued Medications Pantoprazole Sodium 80 mg/ (Dextrose) 120 mls @ 480 mls/hr IV ONE STA Stop: 07/03/25 08:09 Last Infusion: 07/03/25 08:29 Dose: Infused Documented By: Admin: 07/03/25 08:06 Dose: 480 mls/hr Documented By: ECS Piperacillin Sod/Tazobactam Sod (Zosyn) 4.5 gm in 100 mls @ 200 mls/hr IV NOW ONE; Protocol Stop: 07/03/25 09:33 Last Infusion: 07/03/25 10:14 Dose: Infused Documented By: Admin: 07/03/25 09:26 Dose: 200 mls/hr Documented By: ECS Acetaminophen (Ofirmev) 1,000 mg in 100 mls @ 400 mls/hr IV NOW STA Stop: 07/03/25 11:27 Last Infusion: 07/03/25 14:20 Dose: Infused Documented By: Admin: 07/03/25 11:33 Dose: 400 mls/hr Documented By: JV Ioversol (Optiray 320 100ml) 94 ml IV ONCE ONE Stop: 07/03/25 07:52 Last Admin: 07/03/25 07:51 Dose: 94 ml Documented By: DWAYNE Lidocaine (Lidocaine 5% 1 Patch) 1 patch TD NOW STA Stop: 07/03/25 07:15 Last Admin: 07/03/25 07:30 Dose: 1 patch Documented By: ECS Imaging Data Radiologist's Impression: Abdomen/Pelvis CT 07/03/25 07:29 EXAM: CT abd pelvis IV con only CLINICAL HISTORY: GI bleed, lower abd pain. TECHNIQUE: Contrast-enhanced CT of the abdomen and pelvis was performed, with the following protocol: axial images with, and reconstructed coronal and sagittal images. Intravenous contrast was administered. One of the following dose reduction techniques was utilized for this exam: Automated exposure control, adjustment of the mA and/or kV according to patient size, and use of iterative reconstruction. COMPARISON: Compared to the previous CT study dated 06/12/2021. FINDINGS: There are multiple colonic wall diverticula outpouchings, mainly at the sigmoid segment, with mild diffuse edematous wall thickening reaching 6 mm maximum thickness, forming a long segment reaching 20 cm maximum lenght involving the descending colon surrounded by engorged mesentery. Mild wall thickening of the ileocecal junction and a short segment of the terminal ileum. Abdomen: Liver: Normal in size, shape, and density. No focal lesions, cysts, or masses were identified. Hepatic vasculature and biliary ducts are unremarkable. Gallbladder and Biliary System: The gallbladder is normal in size and shape, with multiple isodense foci inside. No wall thickening, pericholecystic fluid was identified. The common bile duct is normal in caliber without dilation. Pancreas: The pancreatic head, body, and tail are visualized and appear normal in size and density. No pancreatic masses or calcifications were noted. The pancreatic duct is not dilated. Spleen: Normal in size, shape, and density. No splenic lesions or masses were identified. Appendix: The appendix is normal in size without cyndy-appendiceal fat stranding and without an appendicolith. No evidence of appendiceal abscess or perforation. Kidneys and Adrenal Glands: Both kidneys are normal in size, shape, and position. Cortical thickness is within normal limits. No renal calculi or hydronephrosis. Adrenal glands are unremarkable with no evidence of masses or hyperplasia. Pelvis: Urinary Bladder: Normal in contour and wall thickness. No intraluminal lesions identified. uterus Normal in size and contour. No focal lesions or masses identified. Ovaries and adnexa: No abnormalities noted. Peritoneal and Retroperitoneal Structures: Minimal free pelvic ascites.. No lymphadenopathy was noted. Bones and Soft Tissues: Pelvic bones and soft tissues are unremarkable. No fractures or abnormal masses were identified. A small fatty umbilical hernia was noted. A sliding hiatus hernia. Lower chest cuts show multiple left basal subpleural reticulations and atelectasis. Mild wedging/reduced height of D11 vertebral body about 40% from the normal height. Diffuse osteopenic texture of the examined. IMPRESSION: 1. Diffuse colonic diverticular disease with long segment of sigmoid and descending colonic wall edematous thickening and engorged mesentery, most likely an acute inflammatory process, acute diverticulitis/ colitis to be clinically correlated (new). 2. Multiple gall bladder stones (unchanged) 3. Minimal free pelvic ascites. (New) 4. Mild wedging/reduced height of D11 vertebral body about 40% from the normal height. Electronically signed by Jose Montenegro 07-03-2025 08:50 AM Discharge Plan Visit Data Chief Complaint: Rectal Bleed Stated Complaint: GI BLEED - BLACK TARRY STOOLS ED Provider: Sondra Wright Discharge Problem: GI bleed Patient Disposition: Admitted As Inpatient Condition: Serious Discharge Instructions Interventions: ED Discharge Assessment Last Done: 07/03/25 11:50
[2025-07-03 05:30] LABS: INR 1.0 (0.9-1.1); Partial Thromboplastin Time 31 Seconds (21-31); Prothrombin Time 10.6 Seconds (9.0-12.0)
[2025-07-03] MEDS: LIDOCAINE 5% 1 PATCH TD STA (07:30)
--- NOTE | 2025-07-03 07:35 | History & Physical Report ---
Date of Service July 03, 2025 Assessment & Plan (1) GI bleed: (2) Acute blood loss anemia: (3) Acute colitis: (4) HTN (hypertension): Plan This patient is an 79-year-old female with history of HTN, HLD, hypothyroidism, PE with antiphospholipid antibody syndrome on Eliquis, balance issues with recent fall, who presents to the ED with 4 dark colored stools that started at 11 AM on 07/02. She has been feeling fatigued and weak since then and has been having chills at home along with lower crampy abdominal pain mostly on the left side. She had some nausea but no vomiting. She has been taking a lot of Tylenol 1000 mg p.o. 3 times daily since her fall last week with buttock and rib pain, but no NSAIDs. She has had colonoscopies in the past which she reports were all normal but the last one was at least 7 to 10 years ago. In the ED, her hemoglobin was down 1 g from a week prior at 11.8. She was mildly tachycardic but hypertensive. Her rectal exam showed brown stool but it was Hemoccult positive as per ED physician. I ordered a CT of the abdomen/pelvis at the time of admission and it returned with evidence of descending and sigmoid colitis as well as thickening of the ileocecal junction and a short segment of the terminal ileum. She will be admitted for acute GI bleed, acute colitis, with acute blood loss anemia. #GI bleed in the setting of anticoagulation with Eliquis/acute blood loss anemia/acute colitis and possible terminal ileitis-with darker stools indicating more proximal GI bleeding versus low flow bleed in the colon. With lower abdominal pain prior to the bleeding, mild leukocytosis, now with chills likely developing fever. Last dose of Eliquis on the a.m. of 07/02. Coag studies here are normal. Hemoglobin down to 11.8 from 12.81-week prior with mild tachycardia but hypertensive. Given melena, could also be upper GI bleeding along with colitis. - Admit to medical floor with telemetry - Follow serial CBC every 4 hours, and follow CMP in the morning along with magnesium -Transfuse if becomes hemodynamically unstable or hemoglobin less than 7-she is typed and screened-need to get blood consent - Consult GI in case of need for scope-Will keep n.p.o. except for pills for now and start IV maintenance fluids -Start IV Protonix in case of upper GI bleed -Hold Eliquis -Hold home telmisartan - Start IV Zosyn for colitis and check stool studies, blood cultures - Tylenol as needed for fever/chills or pain #HTN/HLD-mildly hypertensive but in the setting of acute GI bleeding, need to watch for hypotension - Hold home telmisartan and can continue lovastatin #History of PE/antiphospholipid antibody syndrome on Eliquis-follows with Dr. Pinon of [facility] hematology. Most recent note says she was to lowered her dose of Eliquis to 2.5 mg p.o. twice daily but it does not appear that was done. Despite having a diagnosis of antiphospholipid antibody syndrome, effectiveness of Eliquis is not proven yet she has not had any thrombotic complications so she was to remain on this - Hold Eliquis for now - SCDs for DVT prophylaxis given that she has high risk #Nonanion gap metabolic acidosis-perhaps due to recent loose stools? Dehydration? - Giving IV fluids - Follow BMP #Elevated alkaline phosphatase-this has been present previously but most recently earlier in 2024 was normal. Mildly elevated 138. Unclear from bone or liver or intestine - Checking CT abdomen/pelvis - Follow LFTs in the morning #Hypothyroidism-TSH from 1 week prior is normal - Continue home levothyroxine #Recent fall/lower back pain/right buttock pain and hematoma-continue lidocaine patch to lower back, Tylenol as needed for pain DVT prophylaxis-SCDs only Disposition-admit to medical floor with telemetry. She designates her daughter who is a physician assignment desk assistant to be her spokesperson if she is unable to speak for herself. I offered to call her daughter and she would like to wait until her daughter gets off work and contact her on her own to let her know she has been hospitalized. I asked her to tell her daughter that I am happy to call her and update her if she wishes. History of Present Illness Chief Complaint: Bloody stools Primary Care Provider: Apollo Chavez, DO This patient is an 79-year-old female with history of HTN, HLD, hypothyroidism, PE with antiphospholipid antibody syndrome on Eliquis, balance issues with recent fall, who presents to the ED with 4 dark colored stools that started at 11 AM on 9/13. She has been feeling fatigued and weak since then and has been having chills at home along with lower crampy abdominal pain mostly on the left side. She had some nausea but no vomiting. She has been taking a lot of Tylenol 1000 mg p.o. 3 times daily since her fall last week with buttock and rib pain, but no NSAIDs. She has had colonoscopies in the past which she reports were all normal but the last one was at least 7 to 10 years ago. In the ED, her hemoglobin was down 1 g from a week prior at 11.8. She was mildly tachycardic but hypertensive. Her rectal exam showed brown stool but it was Hemoccult positive as per ED physician. I ordered a CT of the abdomen/pelvis at the time of admission and it returned with evidence of descending and sigmoid colitis as well as thickening of the ileocecal junction and a short segment of the terminal ileum. She will be admitted for acute GI bleed, acute colitis, with acute blood loss anemia. Allergies Allergy/AdvReac Type Severity Reaction Status Date / Time No Known Drug Allergies Allergy Unknown . Verified 06/23/25 10:26 Home Medications Medication Instructions Recorded Confirmed Type multivitamin (Daily Multi-Vitamin 1 tab PO QAM 07/14/19 07/03/25 History tablet) calcium 600 mg (as 1 tab PO BID 05/26/23 07/03/25 History carbonate)-vitamin D3 5 mcg (200 unit) tablet apixaban 5 mg tablet 5 mg PO BID #180 tabs 12/02/24 07/03/25 Rx levothyroxine 50 mcg tablet 50 mcg PO DAILY #90 tabs 12/02/24 07/03/25 Rx lovastatin 20 mg tablet 20 mg PO DAILY #90 tabs 12/02/24 07/03/25 Rx telmisartan 40 mg tablet 40 mg PO DAILY #90 tabs 12/02/24 07/03/25 Rx lidocaine 5 % topical patch 1 patch topical DAILY PRN pain #15 06/26/25 07/03/25 Rx ea oxycodone 5 mg tablet 2.5 mg (1/2 x 5 mg) PO Q8H PRN 06/26/25 07/03/25 Rx pain #6 tabs baclofen 10 mg tablet 5 mg (1/2 x 10 mg) PO TID PRN 07/01/25 07/03/25 Rx muscle spasm #12 tabs Past Med/Surg History Problem List (Updated 07/03/25 @ 11:23 by Cassia Whitley MD) Acute colitis Acute blood loss anemia GI bleed Traumatic ecchymosis of buttock (Acute) Rib pain on left side (Acute) Fall (Acute) Osteopenia HTN (hypertension) History of pulmonary embolism (~2017) 4-5 YEARS AGO (REASON FOR ELIQUIS) Antiphospholipid antibody syndrome (Chronic) Chronic anticoagulation (Acute) Hypercholesterolemia (Chronic) Hypothyroidism (Chronic) Medical History Sensorineural hearing loss of both ears Anxiety 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 Hx of rheumatic fever AT AGE 12 History of back pain MUSCLE SPASMS IN PAST (REASON FOR FLEXERIL) Osteoporosis Surgical History History of dilatation and curettage History of bilateral tubal ligation History of tooth extraction History of cataract surgery RT H/O colonoscopy Family History Mother Breast cancer Father Stomach cancer Prostate cancer Other No family history of adverse response to anesthesia Denies family history of Ovarian cancer Diabetes Heart disease Myocardial infarction Lung cancer Colorectal cancer Hypertension Stroke Social History Smoking Status: Former smoker Tobacco Type: Cigarettes Age Started Using Tobacco: 21; Age Quit Using Tobacco: 29; packs per day: 0.5; Second Hand Exposure: No; Do You Dip or Chew Tobacco: No; Hx Alcohol Use: No Hx Substance Use: No Preferred Language: Cymro Communication Ability: Effective Visual Impairment: No Limitations Hearing Ability: Hard of Hearing Mechanical Insulator Required: No Beliefs That Will Affect Care: None marital status: / Current Living Situation: Alone current occupational status: retired How many Children do You have: 2 Feels Safe at Home: Yes Childhood Exposure to Second-Hand Smoke: Yes Diet: regular caffeine: Yes Dental Care, Regularly: Yes Physical Activity Frequency: 3-4 Times per Week Physical Activity Frequency Comment: treadmill Seatbelt Use: always Sunscreen Use: Yes Do you think of yourself as: straight/heterosexual Assistive Devices: None Review of Systems Review of Systems: All systems reviewed & are unremarkable except as noted in HPI & below Physical Exam Constitutional: WD/WN, vitals as above Eyes: PERRL, conjunctivae normal, anicteric sclerae ENMT: external ear and nose normal, oropharynx normal (With mild dry mucous membranes) Neck: trachea midline, no thyromegaly Respiratory: normal respiratory effort, lungs clear to auscultation Cardiovascular: RRR, no murmur, no edema Chest (Breasts): Chest: normal inspection of chest Gastrointestinal (Abdomen): Inspection/Auscultation: abdomen normal to inspection and normal bowel sounds; abdomen not distended Percussion/Palpation: + abdomen tender (In LLQ without guarding or rebound) and abdomen soft; no guarding Musculoskeletal: Extremities: extremities normal to inspection; no cyanosis and no clubbing Skin: no rashes, warm and dry + ecchymosis (Right buttock over ischium with positive TTP) Neurologic: moves all extremities and awake; no focal motor deficits Psychiatric: A+Ox3, euthymic affect Lymphatic: no lymphedema Results & Data Results & Data Vital Signs (Past 12 Hours) Vital Signs Temp Pulse Resp BP Pulse Ox O2 Del Method 07/03/25 06:57 94 H 19 141/104 H 100 Room Air 07/03/25 05:44 95 H 20 163/89 H 99 07/03/25 04:35 Room Air 07/03/25 04:07 104 H 07/03/25 03:57 36.4 C L 106 H 18 163/94 H 96 Room Air Laboratory Results CBC, PT/PTT/INR, BMP, LFTs, APAP level reviewed Diagnostic Findings Abdomen/Pelvis CT 07/03/25 07:29 EXAM: CT abd pelvis IV con only CLINICAL HISTORY: GI bleed, lower abd pain. TECHNIQUE: Contrast-enhanced CT of the abdomen and pelvis was performed, with the following protocol: axial images with, and reconstructed coronal and sagittal images. Intravenous contrast was administered. One of the following dose reduction techniques was utilized for this exam: Automated exposure control, adjustment of the mA and/or kV according to patient size, and use of iterative reconstruction. COMPARISON: Compared to the previous CT study dated 06/12/2021. FINDINGS: There are multiple colonic wall diverticula outpouchings, mainly at the sigmoid segment, with mild diffuse edematous wall thickening reaching 6 mm maximum thickness, forming a long segment reaching 20 cm maximum lenght involving the descending colon surrounded by engorged mesentery. Mild wall thickening of the ileocecal junction and a short segment of the terminal ileum. Abdomen: Liver: Normal in size, shape, and density. No focal lesions, cysts, or masses were identified. Hepatic vasculature and biliary ducts are unremarkable. Gallbladder and Biliary System: The gallbladder is normal in size and shape, with multiple isodense foci inside. No wall thickening, pericholecystic fluid was identified. The common bile duct is normal in caliber without dilation. Pancreas: The pancreatic head, body, and tail are visualized and appear normal in size and density. No pancreatic masses or calcifications were noted. The pancreatic duct is not dilated. Spleen: Normal in size, shape, and density. No splenic lesions or masses were identified. Appendix: The appendix is normal in size without cyndy-appendiceal fat stranding and without an appendicolith. No evidence of appendiceal abscess or perforation. Kidneys and Adrenal Glands: Both kidneys are normal in size, shape, and position. Cortical thickness is within normal limits. No renal calculi or hydronephrosis. Adrenal glands are unremarkable with no evidence of masses or hyperplasia. Pelvis: Urinary Bladder: Normal in contour and wall thickness. No intraluminal lesions identified. uterus Normal in size and contour. No focal lesions or masses identified. Ovaries and adnexa: No abnormalities noted. Peritoneal and Retroperitoneal Structures: Minimal free pelvic ascites.. No lymphadenopathy was noted. Bones and Soft Tissues: Pelvic bones and soft tissues are unremarkable. No fractures or abnormal masses were identified. A small fatty umbilical hernia was noted. A sliding hiatus hernia. Lower chest cuts show multiple left basal subpleural reticulations and atelectasis. Mild wedging/reduced height of D11 vertebral body about 40% from the normal height. Diffuse osteopenic texture of the examined. IMPRESSION: 1. Diffuse colonic diverticular disease with long segment of sigmoid and descending colonic wall edematous thickening and engorged mesentery, most likely an acute inflammatory process, acute diverticulitis/ colitis to be clinically correlated (new). 2. Multiple gall bladder stones (unchanged) 3. Minimal free pelvic ascites. (New) 4. Mild wedging/reduced height of D11 vertebral body about 40% from the normal height. Electronically signed by Jose Montenegro 07-03-2025 08:50 AM ECG Additional Comments: ECG on 07/03/2025 at 4:10 AM with normal sinus rhythm, rate 100, some artifact but possible T wave flattening/inversion in lateral leads not much changed from previous Code Status & VTE Plan Code Status Full code VTE Prophylaxis Plan VTE Prophylaxis will be ordered: Yes PG Care Time/CCT Total # of Minutes Spent Total Time Spent with Patient: Total time spent is greater than 50% in coordination of care (as documented) at patient's floor/unit and/or counseling patient: Coding Level of Care Code 59055 INT INP/OBS CARE 3/75MIN Diagnoses GI bleed K92.2 Acute blood loss anemia D62 Acute colitis K52.9 HTN (hypertension) I10
[2025-07-03 07:50] LABS: Hematocrit (blood only) 33.9 % (37.0-47.0); Hemoglobin 11.2 g/dl (12.0-16.0); Mean Corpuscular Hemoglobin 29.6 pg (25.0-34.0); Mean Corpuscular Volume 89.7 fL (80.0-100.0); Platelet Count 321 K/uL (130-400); RDW Standard Deviation 45.9 fL (36.4-46.3); Red Blood Count 3.78 M/uL (4.20-5.40); White Blood Count 12.57 K/ul (4.8-10.8)
[2025-07-03] MEDS: OPTIRAY 320 100ml IV ONE (07:51)
--- NOTE | 2025-07-03 08:50 | CT Scan Report ---
EXAM: CT abd pelvis IV con only CLINICAL HISTORY: GI bleed, lower abd pain. TECHNIQUE: Contrast-enhanced CT of the abdomen and pelvis was performed, with the following protocol: axial images with, and reconstructed coronal and sagittal images. Intravenous contrast was administered. One of the following dose reduction techniques was utilized for this exam: Automated exposure control, adjustment of the mA and/or kV according to patient size, and use of iterative reconstruction. COMPARISON: Compared to the previous CT study dated 06/12/2021. FINDINGS: There are multiple colonic wall diverticula outpouchings, mainly at the sigmoid segment, with mild diffuse edematous wall thickening reaching 6 mm maximum thickness, forming a long segment reaching 20 cm maximum lenght involving the descending colon surrounded by engorged mesentery. Mild wall thickening of the ileocecal junction and a short segment of the terminal ileum. Abdomen: Liver: Normal in size, shape, and density. No focal lesions, cysts, or masses were identified. Hepatic vasculature and biliary ducts are unremarkable. Gallbladder and Biliary System: The gallbladder is normal in size and shape, with multiple isodense foci inside. No wall thickening, pericholecystic fluid was identified. The common bile duct is normal in caliber without dilation. Pancreas: The pancreatic head, body, and tail are visualized and appear normal in size and density. No pancreatic masses or calcifications were noted. The pancreatic duct is not dilated. Spleen: Normal in size, shape, and density. No splenic lesions or masses were identified. Appendix: The appendix is normal in size without cyndy-appendiceal fat stranding and without an appendicolith. No evidence of appendiceal abscess or perforation. Kidneys and Adrenal Glands: Both kidneys are normal in size, shape, and position. Cortical thickness is within normal limits. No renal calculi or hydronephrosis. Adrenal glands are unremarkable with no evidence of masses or hyperplasia. Pelvis: Urinary Bladder: Normal in contour and wall thickness. No intraluminal lesions identified. uterus Normal in size and contour. No focal lesions or masses identified. Ovaries and adnexa: No abnormalities noted. Peritoneal and Retroperitoneal Structures: Minimal free pelvic ascites.. No lymphadenopathy was noted. Bones and Soft Tissues: Pelvic bones and soft tissues are unremarkable. No fractures or abnormal masses were identified. A small fatty umbilical hernia was noted. A sliding hiatus hernia. Lower chest cuts show multiple left basal subpleural reticulations and atelectasis. Mild wedging/reduced height of D11 vertebral body about 40% from the normal height. Diffuse osteopenic texture of the examined. IMPRESSION: 1. Diffuse colonic diverticular disease with long segment of sigmoid and descending colonic wall edematous thickening and engorged mesentery, most likely an acute inflammatory process, acute diverticulitis/ colitis to be clinically correlated (new). 2. Multiple gall bladder stones (unchanged) 3. Minimal free pelvic ascites. (New) 4. Mild wedging/reduced height of D11 vertebral body about 40% from the normal height. Electronically signed by Jose Montenegro 07-03-2025 08:50 AM
[2025-07-03] MEDS: PIPERACILLIN/TAZOBACTAM 4.5 GM/100 ML BAG IV ONE (09:26)
[2025-07-03] MEDS: ACETAMINOPHEN 1,000 MG/100 ML VIAL IV STA (11:33)
[2025-07-03] MEDS ORDERED: BACLOFEN 10 MG TAB PO PRN (13:04)
[2025-07-03] MEDS ORDERED: ONDANSETRON INJ 2 MG/ML 2 ML VIAL IV PRN (13:04)
[2025-07-03] MEDS ORDERED: ACETAMINOPHEN 325 MG TAB PO PRN (13:04)
[2025-07-03 13:31] LABS: Hematocrit (blood only) 32.5 % (37.0-47.0); Hemoglobin 11.0 g/dl (12.0-16.0); Mean Corpuscular Hemoglobin 30.1 pg (25.0-34.0); Mean Corpuscular Volume 88.8 fL (80.0-100.0); Platelet Count 298 K/uL (130-400); RDW Standard Deviation 46.4 fL (36.4-46.3); Red Blood Count 3.66 M/uL (4.20-5.40); White Blood Count 13.29 K/ul (4.8-10.8)
[2025-07-03] MEDS: LACTATED RINGER'S 1,000 ML IV SCH (14:20)
[2025-07-03] MEDS: PANTOprazole 40 MG in DEXTROSE 5% MINI-B 100 ML IV SCH (14:20)
[2025-07-03] MEDS: PIPERACILLIN/TAZOBACTAM 4.5 GM/100 ML BAG IV SCH (14:43)
[2025-07-03 17:56] LABS: Hematocrit (blood only) 31.2 % (37.0-47.0); Hemoglobin 10.7 g/dl (12.0-16.0); Mean Corpuscular Hemoglobin 31.0 pg (25.0-34.0); Mean Corpuscular Volume 90.4 fL (80.0-100.0); Platelet Count 306 K/uL (130-400); RDW Standard Deviation 47.7 fL (36.4-46.3); Red Blood Count 3.45 M/uL (4.20-5.40); White Blood Count 13.65 K/ul (4.8-10.8)
[2025-07-03] MEDS: REMOVE LIDODERM PATCH SCH (19:35)
[2025-07-03] MEDS ORDERED: REMOVE LIDODERM PATCH SCH (21:00)
[2025-07-04] MEDS: LEVOTHYROXINE SODIUM 50 MCG TABLET PO SCH (05:58)
[2025-07-04 06:55] LABS: Hematocrit (blood only) 31.5 % (37.0-47.0); Hemoglobin 10.3 g/dl (12.0-16.0); Immature Granulocytes # (auto) 0.04 K/uL (0.01-0.20); Immature Granulocytes % (auto) 0.4 %; Mean Corpuscular Hemoglobin 29.5 pg (25.0-34.0); Mean Corpuscular Volume 90.3 fL (80.0-100.0); Platelet Count 291 K/uL (130-400); RDW Standard Deviation 47.7 fL (36.4-46.3); Red Blood Count 3.49 M/uL (4.20-5.40); White Blood Count 11.28 K/ul (4.8-10.8)
[2025-07-04 07:11] LABS: Alanine Aminotransferase 38.0 U/L (7-52); Albumin Globulin Ratio 1.3 (0.9-2); Alkaline Phosphatase 127.0 U/L (34-104); Anion Gap 6.0 (3-11); Bilirubin,Total 1.3 mg/dl (0.2-1.0); Blood Urea Nitrogen 12.0 mg/dl (6-23); Calcium 8.5 mg/dl (8.6-10.3); Carbon Dioxide 23.0 mmol/L (21-32); Chloride 108.0 mmol/L (98-107); Creatinine Clr Calc Pharmacy 49.8 ml/min; Globulin 2.6 gm/dl (2.5-4.0); Glucose 109.0 mg/dl (70-99(Fasting)); Magnesium 2.0 mg/dl (1.7-2.4); Potassium 3.5 mmol/L (3.5-5.1); Sodium 137.0 mmol/L (136-145); Total Protein 6.0 gm/dl (6.0-8.3)
[2025-07-04] MEDS: LOVASTATIN 20 MG TAB PO SCH (09:01)
--- NOTE | 2025-07-04 10:07 | Gastrointestinal Consultation ---
Date of Consultation July 04, 2025 Assessment & Plan (1) Acute colitis: (2) Acute blood loss anemia: (3) GI bleed: Plan Patient admitted with GI bleeding, acute colitis, and blood loss anemia. CT suggestive of colitis. she has been having left sided abdominal tenderness. - monitor hgb/hct, transfuse as needed. - stools studies have been ordered, but not collected. Would be important to rule infectious cause of colitis. - continue to hold eliquis. - likely will need colonoscopy and EGD to further evaluate. will discuss timing with MD. - Further recommendations to come with Supervising GI provider on medical rounds. Please see co-signature comments. Supervising Physician Co-Signing Physician Notes The patient was seen and examined with the gastroenterology R[facility]. Hospital labs, data, records and imaging reviewed. I agree with the assessment and plan as outlined above. On rounds the patient notes marked clinical improvement. This could be suggestive of a resolving colitis. She has not had any stooling to collect a stool specimen to rule out any infectious etiologies. It is possible that she is responding to the Zosyn. She does not currently have any overt evidence of gastrointestinal bleeding and overall would prefer to defer endoluminal evaluation unless absolutely necessary. Will continue to follow her clinically. If she has persistent anemia suggesting of active GI bleed then endoluminal evaluation can be considered. Will advance her diet. History of Present Illness Reason for Consultation: GIB Requesting Physician: Cassia Whitley MD Attending Physician: Cassia Whitley MD History of Present Illness Patient is an 79 year old female with a past medical history of HTN, HLD, hypothyroidism, PE with antiphospholipid antibody syndrome on Eliquis, balance issues with recent fall, who presented to the ED with dark colored stools that started the morning of 07/02/25. She has been feeling fatigued and weak since then and has been having chills at home along with lower crampy abdominal pain that is mostly on her left side. She had some nausea but no vomiting. no NSAIDs. She has had colonoscopies in the past which she reports were all normal but the last one was at least 7 to 10 years ago. In the ED, her hemoglobin was down 1 g from a week prior at 11.8. She was mildly tachycardic but hypertensive. Her rectal exam showed brown stool but it was Hemoccult positive as per ED physician. CT of the abdomen/pelvis at the time of admission had evidence of descending and sigmoid colon colitis as well as thickening of the ileocecal junction and a short segment of the terminal ileum. She was admitted for acute GI bleed, acute colitis, with acute blood loss anemia. she admits to new diarrhea which has been ongoing since yesterday. stools are dark, no brbpr. still having some left sided abdominal pain. 07/04/25 wbc 11.28, hgb 10.3, hct 31.5, plts 291. 07/03/25 CT A/P - 1. Diffuse colonic diverticular disease with long segment of sigmoid and descending colonic wall edematous thickening and engorged mesentery, most likely an acute inflammatory process, acute diverticulitis/ colitis to be clinically correlated (new). 2. Multiple gall bladder stones (unchanged) 3. Minimal free pelvic ascites. (New) 4. Mild wedging/reduced height of D11 vertebral body about 40% from the normal height. Allergies Allergy/AdvReac Type Severity Reaction Status Date / Time No Known Drug Allergies Allergy Unknown . Verified 06/23/25 10:26 Home Medications Medication Instructions Recorded Confirmed Type multivitamin (Daily Multi-Vitamin 1 tab PO QAM 07/14/19 07/03/25 History tablet) calcium 600 mg (as 1 tab PO BID 05/26/23 07/03/25 History carbonate)-vitamin D3 5 mcg (200 unit) tablet apixaban 5 mg tablet 5 mg PO BID #180 tabs 12/02/24 07/03/25 Rx levothyroxine 50 mcg tablet 50 mcg PO DAILY #90 tabs 12/02/24 07/03/25 Rx lovastatin 20 mg tablet 20 mg PO DAILY #90 tabs 12/02/24 07/03/25 Rx telmisartan 40 mg tablet 40 mg PO DAILY #90 tabs 12/02/24 07/03/25 Rx lidocaine 5 % topical patch 1 patch topical DAILY PRN pain #15 06/26/25 07/03/25 Rx ea oxycodone 5 mg tablet 2.5 mg (1/2 x 5 mg) PO Q8H PRN 06/26/25 07/03/25 Rx pain #6 tabs baclofen 10 mg tablet 5 mg (1/2 x 10 mg) PO TID PRN 07/01/25 07/03/25 Rx muscle spasm #12 tabs Patient History Medical History Sensorineural hearing loss of both ears Anxiety 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 Hx of rheumatic fever AT AGE 12 History of back pain MUSCLE SPASMS IN PAST (REASON FOR FLEXERIL) Osteoporosis Surgical History History of dilatation and curettage History of bilateral tubal ligation History of tooth extraction History of cataract surgery RT H/O colonoscopy Family History Mother Breast cancer Father Stomach cancer Prostate cancer Other No family history of adverse response to anesthesia Denies family history of Ovarian cancer Diabetes Heart disease Myocardial infarction Lung cancer Colorectal cancer Hypertension Stroke Social History Smoking Status: Former smoker Tobacco Type: Cigarettes Age Started Using Tobacco: 21; Age Quit Using Tobacco: 29; packs per day: 0.5; Second Hand Exposure: No; Do You Dip or Chew Tobacco: No; Hx Alcohol Use: No Hx Substance Use: No Preferred Language: Estonian Communication Ability: Effective Visual Impairment: No Limitations Hearing Ability: Hard of Hearing Administrative Office Clerk Required: No Beliefs That Will Affect Care: None marital status: / Current Living Situation: Alone current occupational status: retired How many Children do You have: 2 Feels Safe at Home: Yes Childhood Exposure to Second-Hand Smoke: Yes Diet: regular caffeine: Yes Dental Care, Regularly: Yes Physical Activity Frequency: 3-4 Times per Week Physical Activity Frequency Comment: treadmill Seatbelt Use: always Sunscreen Use: Yes Do you think of yourself as: straight/heterosexual Assistive Devices: None Review of Systems Review of Systems: All systems reviewed & are unremarkable except as noted in HPI & below Physical Exam Constitutional: WD/WN, vitals as above Respiratory: normal respiratory effort, lungs clear to auscultation Cardiovascular: Rate/Rhythm: regular rate and regular rhythm Gastrointestinal (Abdomen): left sided tenderness to palpation, no guarding, soft, normal bowel sounds. Psychiatric: Orientation: alert and oriented x 3 Affect: euthymic affect Results & Data Vital Signs (Past 12 Hours) Vital Signs Temp Pulse Pulse Resp BP BP Pulse Ox 07/04/25 09:00 07/04/25 07:58 98.2 F 88 20 126/68 94 07/04/25 07:00 77 07/04/25 03:58 98.6 F 73 16 110/65 96 07/03/25 23:07 98.1 F 78 16 125/74 97 O2 Del Method 07/04/25 09:00 Room Air 07/04/25 07:58 Room Air 07/04/25 07:00 07/04/25 03:58 Room Air 07/03/25 23:07 Room Air Coding Level of Care Code 84176 INT INP/OBS CARE 2/55MIN Diagnoses Acute colitis K52.9 Acute blood loss anemia D62 GI bleed K92.2
--- NOTE | 2025-07-04 13:41 | Hospitalist Progress Note ---
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 She has been feeling fatigued and weak since then and has been having chills at home along with lower crampy abdominal pain mostly on the left side. She had some nausea but no vomiting. She has been taking a lot of Tylenol 1000 mg p.o. 3 times daily since her fall last week with buttock and rib pain, but no NSAIDs. She has had colonoscopies in the past which she reports were all normal but the last one was at least 7 to 10 years ago. In the ED, her hemoglobin was down 1 g from a week prior at 11.8. Her rectal exam showed brown stool but it was Hemoccult positive as per ED physician. She will be admitted for acute GI bleed, acute colitis, with acute blood loss anemia. #GI bleed in the setting of anticoagulation with Eliquis/acute blood loss anemia/acute colitis and possible terminal ileitis-with darker stools indicating more proximal GI bleeding versus low flow bleed in the colon. With lower abdominal pain prior to the bleeding, mild leukocytosis, now with chills likely developing fever. Last dose of Eliquis on the a.m. of 07/02. Hemoglobin down to 11.8 from 12.81-week prior with mild tachycardia but hypertensive. CT A/P with evidence of descending and sigmoid colitis as well as thickening of the ileocecal junction and a short segment of the terminal ileum. Given melena, could also be upper GI bleeding along with colitis. Hgb slowly downtrending, now 10.3 Transfuse if becomes hemodynamically unstable or hemoglobin less than 7-she is typed and screened-need to get blood consent Consult GI - tentiatively planning for EGD and colo, awaiting attending GI recs N.p.o. except for pills for now and start IV maintenance fluids Continue IV Protonix in case of upper GI bleed Hold Eliquis Continue IV Zosyn for colitis Stool studies pending - not collected, each sample has been contaminated Blood cultures negative at 24 hours #HTN/HLD-mildly hypertensive but in the setting of acute GI bleeding, need to watch for hypotension - Hold home telmisartan and can continue lovastatin #History of PE/antiphospholipid antibody syndrome on Eliquis-follows with Dr. Pinon of [facility] hematology. Most recent note says she was to lowered her dose of Eliquis to 2.5 mg p.o. twice daily but it does not appear that was done. Despite having a diagnosis of antiphospholipid antibody syndrome, effectiveness of Eliquis is not proven yet she has not had any thrombotic complications so she was to remain on this - Hold Eliquis for now - SCDs for DVT prophylaxis given that she has high risk #Elevated alkaline phosphatase-this has been present previously but most recen tly earlier in 2024 was normal. Mildly elevated 138. Unclear from bone or liver or intestine - no findings on CT A/P to explain. Downtrendign to 127, AM CMP #Hypothyroidism-TSH from 1 week prior is normal - Continue home levothyroxine #Recent fall/lower back pain/right buttock pain and hematoma-continue lidocaine patch to lower back, Tylenol as needed for pain DVT prophylaxis-SCDs only, eliquis held Disposition-continued inpatient stay for further GI eval, possible scopes Daughter updated at bedside 07/04 Admission and Anticipated Discharge Date Admission Date: July 03, 2025 Supervising Physician Co-Signing Physician Notes Attending Attestation - Chart reviewed, care plan d/w NANCY Finch. I agree w/ the hensley components of her documentation. Appreciate GI consultation & recommendations. Jama Bauman MD Subjective Patient seen sitting up in bed, daughter present at bedside reports feeling alittle bettter than yesterday still having dark stools, loose, not black mild abd pain, no nausea or vomiting Review of Systems Review of Systems: All systems reviewed & are unremarkable except as noted in Subjective Physical Exam Physical Exam: General: NAD, VS as above, sitting up in bed Resp: normal respiratory effort, lungs clear to auscultation CV: RRR, no murmur, Abd: normal bowel sounds, mild distention, mild tenderness Extremities: Moves all extremities Neuro: A&O x3, Skin: intact, no lesions noted Results & Data Results & Data Vital Signs (Past 12 Hours) Vital Signs Temp Pulse Pulse Resp BP BP Pulse Ox 07/04/25 11:43 98.1 F 93 H 20 138/73 94 07/04/25 09:00 07/04/25 07:58 98.2 F 88 20 126/68 94 07/04/25 07:00 77 07/04/25 03:58 98.6 F 73 16 110/65 96 O2 Del Method 07/04/25 11:43 Room Air 07/04/25 09:00 Room Air 07/04/25 07:58 Room Air 07/04/25 07:00 07/04/25 03:58 Room Air Laboratory Results cbc and chemistry reviewed Diagnostic Findings CT a/p reviewed PG Care Time/CCT Total # of Minutes Spent Total Time Spent with Patient: Total time spent is greater than 50% in coordination of care (as documented) at patient's floor/unit and/or counseling patient: Coding Level of Care Code 07509 SUB INP/OBS CARE 3/50MIN Diagnoses GI bleed K92.2 Acute blood loss anemia D62 Acute colitis K52.9 HTN (hypertension) I10
[2025-07-05 08:31] LABS: Hematocrit (blood only) 30.4 % (37.0-47.0); Hemoglobin 9.8 g/dl (12.0-16.0); Mean Corpuscular Hemoglobin 29.5 pg (25.0-34.0); Mean Corpuscular Volume 91.6 fL (80.0-100.0); Platelet Count 305 K/uL (130-400); RDW Standard Deviation 49.1 fL (36.4-46.3); Red Blood Count 3.32 M/uL (4.20-5.40); White Blood Count 9.37 K/ul (4.8-10.8)
[2025-07-05 08:53] LABS: Alanine Aminotransferase 36.0 U/L (7-52); Albumin Globulin Ratio 1.3 (0.9-2); Alkaline Phosphatase 148.0 U/L (34-104); Anion Gap 7.0 (3-11); Bilirubin,Total 1.2 mg/dl (0.2-1.0); Blood Urea Nitrogen 7.0 mg/dl (6-23); Calcium 8.4 mg/dl (8.6-10.3); Carbon Dioxide 24.0 mmol/L (21-32); Chloride 109.0 mmol/L (98-107); Creatinine Clr Calc Pharmacy 56.3 ml/min; Globulin 2.6 gm/dl (2.5-4.0); Glucose 107.0 mg/dl (70-99(Fasting)); Iron 17.0 mcg/dl (35-150); Potassium 3.5 mmol/L (3.5-5.1); Sodium 140.0 mmol/L (136-145); Total Iron Binding Cap Calc 239.0 mcg/dl (250-450); Total Protein 5.9 gm/dl (6.0-8.3); Transferrin 171.0 mg/dl (200-360); Transferrin (FE) Percent Satur 7.0 % (15-50)
[2025-07-05 09:11] LABS: Folate (Folic Acid),Ser orPlas > 22.30 ng/ml (>5.38)
[2025-07-05 09:13] LABS: Ferritin 256.7 ng/ml (8-388); Vitamin B12 1471 pg/ml (180-914)
--- NOTE | 2025-07-05 10:05 | Gastroenterology Progress Note ---
Date of Service July 05, 2025 Assessment & Plan (1) Acute colitis: (2) Acute blood loss anemia: (3) GI bleed: Plan Patient feels bleeding has improved, though hgb slightly lower today. stools improving. she has some abdominal distention today. - check KUB given abdominal distention. - continue to monitor hgb/hct. transfuse as needed. - would still attempt to collect stool sample. - continue with antibiotics. -Further recommendations to come with Supervising GI provider on medical rounds. Please see co-signature comments. Admission and Anticipated Discharge Date Admission Date: July 03, 2025 Supervising Physician Co-Signing Physician Notes The patient was seen today at bedside. The patient is having improved appetite and had a very large bowel movement with significantly improved symptoms. She is anxious for hospital discharge. We recommend continued advancement of the diet and monitoring of blood counts. Acute colitis, resolving is suspected. If blood counts continue to downtrend then may need to consider endoluminal evaluation. Subjective Patient tells me that she feels about the same. She almost feels too full to eat the liquids. she had a more solid bowel movement last evening in the middle of the night. she was unable to collect the sample for the stool studies. she did not notice further blood in the stools. she denies abdominal pain, but feels uncomfortable. she feels her abdomen is more distended today. 07/05/25 WBC 9.37, hgb 9.8, hct 30.4, plts 305, Na 140, K 3.5, BUN 7, Creatinine 0.78, glucose 107. Review of Systems Review of Systems: All systems reviewed & are unremarkable except as noted in HPI & below Physical Exam Constitutional: WD/WN, vitals as above Respiratory: normal respiratory effort, lungs clear to auscultation Cardiovascular: Rate/Rhythm: regular rate and regular rhythm Gastrointestinal (Abdomen): abdomen mildly distended, uncomfortable to palpation, no guarding, soft, normal bowel sounds. Psychiatric: Orientation: alert and oriented x 3 Results & Data Results & Data Vital Signs (Past 12 Hours) Vital Signs Temp Pulse Pulse Resp BP BP Pulse Ox 07/05/25 08:21 97.9 F 81 81 H 123/73 96 07/05/25 07:27 93 H 07/05/25 02:57 99.3 F 82 18 132/65 98 07/04/25 22:33 98.6 F 80 18 103/62 97 O2 Del Method 07/05/25 08:21 Room Air 07/05/25 07:27 07/05/25 02:57 Room Air 07/04/25 22:33 Room Air Coding Level of Care Code 57951 SUB INP/OBS CARE 235MIN Diagnoses Acute colitis K52.9 Acute blood loss anemia D62 GI bleed K92.2
[2025-07-05] MEDS: LIDOCAINE 5% 1 PATCH TD PRN (10:34)
[2025-07-05] MEDS: IRON SUCROSE 300 MG in SODIUM CHLORIDE 0.9% 250 ML IV ONE (11:48)
--- NOTE | 2025-07-05 13:06 | XRay Report ---
KUB HISTORY: abdominal distention COMPARISON STUDY: None FINDINGS: There is moderate retained stool. No bowel obstruction seen. No gross free air. IMPRESSION: No acute findings. ACT 112: Negative or not required by law. The above report was generated using voice recognition software. It may contain grammatical, syntax o r spelling errors. Electronically signed by: Yovani Stafford M.D. 07/05/2025 1:05 PM
--- NOTE | 2025-07-05 14:53 | Hospitalist Progress Note ---
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 She has been feeling fatigued and weak since then and has been having chills at home along with lower crampy abdominal pain mostly on the left side. She had some nausea but no vomiting. She has been taking a lot of Tylenol 1000 mg p.o. 3 times daily since her fall last week with buttock and rib pain, but no NSAIDs. She has had colonoscopies in the past which she reports were all normal but the last one was at least 7 to 10 years ago. In the ED, her hemoglobin was down 1 g from a week prior at 11.8. Her rectal exam showed brown stool but it was Hemoccult positive as per ED physician. She will be admitted for acute GI bleed, acute colitis, with acute blood loss anemia. #GI bleed in the setting of anticoagulation with Eliquis/acute blood loss anemia/acute colitis and possible terminal ileitis-with darker stools indicating more proximal GI bleeding versus low flow bleed in the colon. With lower abdominal pain prior to the bleeding, mild leukocytosis, now with chills likely developing fever. Last dose of Eliquis on the a.m. of 07/02. Hemoglobin down to 11.8 from 12.81-week prior with mild tachycardia but hypertensive. CT A/P with evidence of descending and sigmoid colitis as well as thickening of the ileocecal junction and a short segment of the terminal ileum. Given melena, could also be upper GI bleeding along with colitis. Hgb slowly downtrending, now 10.3 --> 9.8 Consult GI - suspect more related to colitis, continue abx, attempt to collect stool sample, adv diet, no plans for scope at this time Protonix coverted to push Hold Eliquis Continue IV Zosyn for colitis Stool studies pending - not collected, each sample has been contaminated Blood cultures negative at 48 hours Nutritonal labs consistent with MORRIS - one dose venofer given #HTN/HLD-mildly hypertensive but in the setting of acute GI bleeding, need to watch for hypotension - Hold home telmisartan and can continue lovastatin #History of PE/antiphospholipid antibody syndrome on Eliquis-follows with Dr. Pinon of [facility] hematology. Most recent note says she was to lowered her dose of Eliquis to 2.5 mg p.o. twice daily but it does not appear that was done. Despite having a diagnosis of antiphospholipid antibody syndrome, effectiveness of Eliquis is not proven yet she has not had any thrombotic complications so she was to remain on this - Hold Eliquis for now - SCDs for DVT prophylaxis given that she has high risk #Elevated alkaline phosphatase-this has been present previously but most recently earlier in 2024 was normal. Mildly elevated 138. Unclear from bone or liver or intestine - no findings on CT A/P to explain. Downtrendign to 127, AM CMP #Hypothyroidism-TSH from 1 week prior is normal - Continue home levothyroxine #Recent fall/lower back pain/right buttock pain and hematoma-continue lidocaine patch to lower back, Tylenol as needed for pain DVT prophylaxis-SCDs only, eliquis held Disposition-continued inpatient stay for further GI eval, stable for downgrade to medical Daughter updated at bedside 07/04 & 07/05 Admission and Anticipated Discharge Date Admission Date: July 03, 2025 Supervising Physician Co-Signing Physician Notes Attending Attestation - Chart reviewed, care plan d/w NANCY Finch. I agree w/ the hensley components of her documentation. Colitis clinically improving. Jama Bauman MD Subjective perico was seen sitting up in bed this afternoon feels that she is getting a little better, had some gas/distention today one soft bowel movement this afternoon Tele - SR 80s Review of Systems Review of Systems: All systems reviewed & are unremarkable except as noted in Subjective Physical Exam Physical Exam: General: NAD, VS as above, sitting up in bed Resp: normal respiratory effort, lungs clear to auscultation CV: RRR, no murmur, Abd: normal bowel sounds, mild distention, mild tenderness Extremities: Moves all extremities Neuro: A&O x3, Skin: intact, no lesions noted Results & Data Results & Data Vital Signs (Past 12 Hours) Vital Signs Temp Pulse Pulse Resp BP BP Pulse Ox 07/05/25 11:36 97.7 F 101 H 16 136/83 97 07/05/25 08:21 97.9 F 81 81 H 123/73 96 07/05/25 07:27 93 H 07/05/25 02:57 99.3 F 82 18 132/65 98 O2 Del Method 07/05/25 11:36 Room Air 07/05/25 08:21 Room Air 07/05/25 07:27 07/05/25 02:57 Room Air Laboratory Results cbc and chemistry reviewed PG Care Time/CCT Total # of Minutes Spent Total Time Spent with Patient: Total time spent is greater than 50% in coordination of care (as documented) at patient's floor/unit and/or counseling patient: Coding Level of Care Code 43993 SUB INP/OBS CARE 3/50MIN Diagnoses GI bleed K92.2 Acute blood loss anemia D62 Acute colitis K52.9 HTN (hypertension) I10
[2025-07-05] MEDS: SIMETHICONE 80 MG CHEW PO PRN (16:32)
[2025-07-06 07:01] LABS: Hematocrit (blood only) 27.3 % (37.0-47.0); Hemoglobin 9.3 g/dl (12.0-16.0); Mean Corpuscular Hemoglobin 30.7 pg (25.0-34.0); Mean Corpuscular Volume 90.1 fL (80.0-100.0); Platelet Count 281 K/uL (130-400); RDW Standard Deviation 47.7 fL (36.4-46.3); Red Blood Count 3.03 M/uL (4.20-5.40); White Blood Count 6.22 K/ul (4.8-10.8)
[2025-07-06 07:23] LABS: Anion Gap 6.0 (3-11); Blood Urea Nitrogen 6.0 mg/dl (6-23); Calcium 8.2 mg/dl (8.6-10.3); Carbon Dioxide 25.0 mmol/L (21-32); Chloride 109.0 mmol/L (98-107); Creatinine Clr Calc Pharmacy 55.6 ml/min; Glucose 92.0 mg/dl (70-99(Fasting)); Potassium 3.4 mmol/L (3.5-5.1); Sodium 140.0 mmol/L (136-145)
[2025-07-06 08:42] VITALS: RESP 16; TEMP 98.2; O2SAT 98
[2025-07-06] MEDS: PANTOprazole 40 MG/10 ML SYR IV SCH (08:45)
--- NOTE | 2025-07-06 09:40 | Gastroenterology Progress Note ---
Date of Service July 06, 2025 Assessment & Plan (1) Acute colitis: (2) Acute blood loss anemia: Plan Patient is feeling much improved and wishes to be discharged to home today. We had discussed that her hgb had dropped slightly, but she and her daughter at bedside are not interested in endoscopic evaluation for this at this time. They would rather she have close outpatient follow up of labs and if further dropping, have a colonoscopy done as an outpatient. had discussed case with Dr. Torres and primary hospital team. Admission and Anticipated Discharge Date Admission Date: July 03, 2025 Subjective Patient is telling me that she feels much better today. abdominal discomfort is improving. bowels are more back to her baseline. she is not seeing blood in the stools or melena. The remainder of the GI ROS were unremarkable. 07/06/25 wbc 6.22, hgb 9.3, hct 27.3, plts 281, BUN 6, creatinine 0.79, Na 140, K 3.4, glucose 92. Review of Systems Review of Systems: All systems reviewed & are unremarkable except as noted in HPI & below Physical Exam Constitutional: WD/WN, vitals as above Respiratory: normal respiratory effort, lungs clear to auscultation Cardiovascular: Rate/Rhythm: regular rate and regular rhythm Gastrointestinal (Abdomen): normal bowel sounds, soft, nontender, no hepatosplenomegaly Psychiatric: Orientation: alert and oriented x 3 Affect: euthymic affect Results & Data Results & Data Vital Signs (Past 12 Hours) Vital Signs Temp Pulse Resp BP Pulse Ox O2 Del Method 07/06/25 08:41 98.2 F 82 16 127/83 98 Room Air 07/05/25 22:27 98.6 F 72 18 121/77 94 Room Air Coding Level of Care Code 34625 SUB INP/OBS CARE 11/13MIN Diagnoses Acute colitis K52.9 Acute blood loss anemia D62
--- NOTE | 2025-07-06 10:55 | Discharge Summary ---
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 She has been feeling fatigued and weak since then and has been having chills at home along with lower crampy abdominal pain mostly on the left side. She has had colonoscopies in the past which she reports were all normal but the last one was at least 7 to 10 years ago. In the ED, her hemoglobin was down 1 g from a week prior at 11.8. Her rectal exam showed brown stool but it was Hemoccult positive as per ED physician. With lower abdominal pain prior to the bleeding, mild leukocytosis, now with chills likely developing fever. Last dose of Eliquis on the a.m. of 07/02. CT A/P with evidence of descending and sigmoid colitis as well as thickening of the ileocecal junction and a short segment of the terminal ileum. Given melena, could also be upper GI bleeding along with colitis. patient's hemoglobin has continued to slowly downtrend, 9.3 on the day of discharge. However subjectively she feels much better her stools are returning to normal caliber and she denies any evidence of dark or bloody stools. GI was consulted and had offered scopes, however she and her family declined. possible that the bleeding was just from the colitis. She received IV Zosyn, per discussion with GI will be discharged on Augmentin. Stool studies were never collected during her inpatient stay due to contamination. Did receive 1 dose of Venofer, continue p.o. iron supplementation 3 times a week. Blood cultures negative at 48 hours. Will need close monitoring of her hemoglobin to ensure no active GI bleeding. #HTN/HLD- Continue home telmisartan and can continue lovastatin #History of PE/antiphospholipid antibody syndrome on Eliquis-follows with Dr. Pinon of [facility] hematology. Most recent note says she was to lowered her dose of Eliquis to 2.5 mg p.o. twice daily but it does not appear that was done. Despite having a diagnosis of antiphospholipid antibody syndrome, effectiveness of Eliquis is not proven yet she has not had any thrombotic complications so she was to remain on this continue to hold Eliquis until hemoglobin begin trending in the right direction. #Elevated alkaline phosphatase-this has been present previously but most recently earlier in 2024 was normal. Mildly elevated 138. Unclear from bone or liver or intestine - no findings on CT A/P to explain. #Hypothyroidism-TSH from 1 week prior is normal, Continue home levothyroxine #Recent fall/lower back pain/right buttock pain and hematoma-continue lidocaine patch to lower back, Tylenol as needed for pain Dispo: Discharge to home today with close PCP follow-up. daughter will be staying with patient this week and her son will be coming to visit next week. 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 She has been feeling fatigued and weak since then and has been having chills at home along with lower crampy abdominal pain mostly on the left side. She had some nausea but no vomiting. She has been taking a lot of Tylenol 1000 mg p.o. 3 times daily since her fall last week with buttock and rib pain, but no NSAIDs. She has had colonoscopies in the past which she reports were all normal but the last one was at least 7 to 10 years ago. In the ED, her hemoglobin was down 1 g from a week prior at 11.8. She was mildly tachycardic but hypertensive. Her rectal exam showed brown stool but it was Hemoccult positive as per ED physician. I ordered a CT of the abdomen/pelvis at the time of admission and it returned with evidence of descending and sigmoid colitis as well as thickening of the ileocecal junction and a short segment of the terminal ileum. She will be admitted for acute GI bleed, acute colitis, with acute blood loss anemia. Discharge Exam General: NAD, VS as above, sitting up in bed Resp: normal respiratory effort, lungs clear to auscultation CV: RRR, no murmur, Abd: normal bowel sounds, significantly less distended, soft Extremities: Moves all extremities Neuro: A&O x3, Skin: intact, no lesions noted Discharge Plan Discharge Items Patient Disposition: Home - Self-Care Reason For Visit: GI BLEED Discharge Diagnosis: Possible GI bleed, infectious colitis Condition on Discharge: Fair Activity: Resume your previous activity Weightbearing: Full weightbearing Non-emergency contact: Primary Care Provider Call non-emergency contact if: you have any medication questions, your symptoms worsen and your pain is worsening Follow-up/Referrals: Apollo Chavez DO [Primary Care Provider] - 07/13/25 2:30 pm Diet: Heart Healthy Addtl Attending Provider Instructions: Ms. Gutierrez, Lm were hospitalized after having dark stools at home. There was concern that you were having a GI bleed. There was also concern that there was an infection in your colon. You received IV antibiotics and started to feel better. Your hemoglobin (your main blood count) has continued to downtrend. This could be because of a slow trickle GI bleed, or because of the colitis. You and your family have opted not have any scopes at this time. Please reach out to your PCP to have repeat blood work ordered. You will be continued on antibiotics, Augmentin for the infectious colitis. Take the first dose this evening, 07/06 and take this with food. You were found to be iron deficient as well - you were given one dose of IV ir on. You should continue iron supplementation 3 times a week. Please hold your Eliquis until you have results of your repeat labs. You have blood cultures pending at the time of discharge, they are negative at 48 hours but take 5 days to get final results. If they turn positive you will be notified, you can also check in with your PCP or the [facility] portal. However, given your symptoms I do not expect they will be positive. Activity: You can do normal everyday activities as your body allows. Take rest breaks if you feel tired. Do not overexert. Stop activity if you have pain, shortness of breath or feel dizzy. Follow-up appointments: Make an appointment with your primary care physician within one week of discharge. A copy of this summary will be sent to them. Every time you see your primary care physician, or any other doctor, bring your medication list, and a list of questions. CONTACT YOUR PRIMARY CARE PROVIDER if you experience any of the following: Shortness of breath or difficulty breathing Fevers or chills Feeling tired with normal activity or experiencing dizziness or fainting Difficulty following your treatment plan, or difficulty taking medications CALL 911 OR GO TO THE EMERGENCY DEPARTMENT if you experience any of the following: Severe abdominal pain or nausea/vomiting Severe chest pain, or chest pain that radiates (moves) to your jaw or arm Sudden, severe shortness of breath or difficulty breathing - significant GI bleeding Thank you for allowing us to participate in your care. Pending Studies at Discharge: Yes (blood cultures ) Stand-Alone Forms: My [facility] [employer], Smoking Cessation Medications and DC Order Prescriptions: New ferrous sulfate 325 mg (65 mg iron) tablet 325 mg PO 3XWK Qty: 30 0RF amoxicillin-pot clavulanate 875-125 mg tablet 1 tab PO BID Qty: 14 0RF Continued levothyroxine 50 mcg tablet 50 mcg PO DAILY Qty: 90 3RF Patient Comments: QAM lovastatin 20 mg tablet 20 mg PO DAILY Qty: 90 3RF Patient Comments: QAM telmisartan 40 mg tablet 40 mg PO DAILY Qty: 90 3RF baclofen 10 mg tablet 5 mg PO TID PRN (Reason: muscle spasm) Qty: 12 0RF multivitamin [Daily Multi-Vitamin] tablet 1 tab PO QAM Patient Comments: 07/03- otc unable to verify calcium carbonate-vitamin D3 600 mg-5 mcg (200 unit) tablet 1 tab PO BID Patient Comments: 07/03- otc unable to verify oxycodone 5 mg tablet 2.5 mg PO Q8H PRN (Reason: pain) Qty: 6 0RF lidocaine 5 % adhesive patch,medicated 1 patch TOP DAILY PRN (Reason: pain) Qty: 15 0RF Patient Comments: 07/03- otc unable to verify Rx Instructions: leave on most painful area for 12 hrs Held apixaban 5 mg tablet 5 mg PO BID Qty: 180 3RF Hold Instructions: Provider's Order Discharge Orders: Discharge Order (Routine); Ordered 07/06/25 Ordered By: Karen Finch Admission Data Admit Date/Time: 07/03/25 07:55 Attending Provider: Rochelle Kent Admit Provider: Cassia Whitley Primary Care Provider: Apollo Chavez Other Providers: Cassia Whitley; Adrian Taveras Jr Other Interventions: Discharge Summary Assessment (RN) Last Done: 07/06/25 11:33 Hospital Stay Data Consultations 07/03/25 07:33 ED Decision to Admit Stat 07/03/25 13:04 Consult Gastroenterology Routine Diagnostic Imagining Performed Abdomen/Pelvis CT 07/03/25 07:29 EXAM: CT abd pelvis IV con only CLINICAL HISTORY: GI bleed, lower abd pain. TECHNIQUE: Contrast-enhanced CT of the abdomen and pelvis was performed, with the following protocol: axial images with, and reconstructed coronal and sagittal images. Intravenous contrast was administered. One of the following dose reduction techniques was utilized for this exam: Automated exposure control, adjustment of the mA and/or kV according to patient size, and use of iterative reconstruction. COMPARISON: Compared to the previous CT study dated 06/12/2021. FINDINGS: There are multiple colonic wall diverticula outpouchings, mainly at the sigmoid segment, with mild diffuse edematous wall thickening reaching 6 mm maximum thickness, forming a long segment reaching 20 cm maximum lenght involving the descending colon surrounded by engorged mesentery. Mild wall thickening of the ileocecal junction and a short segment of the terminal ileum. Abdomen: Liver: Normal in size, shape, and density. No focal lesions, cysts, or masses were identified. Hepatic vasculature and biliary ducts are unremarkable. Gallbladder and Biliary System: The gallbladder is normal in size and shape, with multiple isodense foci inside. No wall thickening, pericholecystic fluid was identified. The common bile duct is normal in caliber without dilation. Pancreas: The pancreatic head, body, and tail are visualized and appear normal in size and density. No pancreatic masses or calcifications were noted. The pancreatic duct is not dilated. Spleen: Normal in size, shape, and density. No splenic lesions or masses were identified. Appendix: The appendix is normal in size without cyndy-appendiceal fat stranding and without an appendicolith. No evidence of appendiceal abscess or perforation. Kidneys and Adrenal Glands: Both kidneys are normal in size, shape, and position. Cortical thickness is within normal limits. No renal calculi or hydronephrosis. Adrenal glands are unremarkable with no evidence of masses or hyperplasia. Pelvis: Urinary Bladder: Normal in contour and wall thickness. No intraluminal lesions identified. uterus Normal in size and contour. No focal lesions or masses identified. Ovaries and adnexa: No abnormalities noted. Peritoneal and Retroperitoneal Structures: Minimal free pelvic ascites.. No lymphadenopathy was noted. Bones and Soft Tissues: Pelvic bones and soft tissues are unremarkable. No fractures or abnormal masses were identified. A small fatty umbilical hernia was noted. A sliding hiatus hernia. Lower chest cuts show multiple left basal subpleural reticulations and atelectasis. Mild wedging/reduced height of D11 vertebral body about 40% from the normal height. Diffuse osteopenic texture of the examined. IMPRESSION: 1. Diffuse colonic diverticular disease with long segment of sigmoid and descending colonic wall edematous thickening and engorged mesentery, most likely an acute inflammatory process, acute diverticulitis/ colitis to be clinically correlated (new). 2. Multiple gall bladder stones (unchanged) 3. Minimal free pelvic ascites. (New) 4. Mild wedging/reduced height of D11 vertebral body about 40% from the normal height. Electronically signed by Jose Montenegro 07-03-2025 08:50 AM KUB X-Ray 07/05/25 10:08 KUB HISTORY: abdominal distention COMPARISON STUDY: None FINDINGS: There is moderate retained stool. No bowel obstruction seen. No gross free air. IMPRESSION: No acute findings. ACT 112: Negative or not required by law. The above report was generated using voice recognition software. It may contain grammatical, syntax or spelling errors. Electronically signed by: Yovani Stafford M.D. 07/05/2025 1:05 PM Pending Results Patient Have Any Pending Studies at Discharge: Yes (blood cultures ) Discharge Instructions Given to Patient (Per Discharging Provider) MsDmitry May, You were hospitalized after having dark stools at home. There was concern that you were having a GI bleed. There was also concern that there was an infection in your colon. You received IV antibiotics and started to feel better. Your hemoglobin (your main blood count) has continued to downtrend. This could be because of a slow trickle GI bleed, or because of the colitis. You and your family have opted not have any scopes at this time. Please reach out to your PCP to have repeat blood work ordered. You will be continued on antibiotics, Augmentin for the infectious colitis. Take the first dose this evening, 07/06 and take this with food. You were found to be iron deficient as well - you were given one dose of IV iron. You should continue iron supplementation 3 times a week. Please hold your Eliquis until you have results of your repeat labs. You have blood cultures pending at the time of discharge, they are negative at 48 hours but take 5 days to get final results. If they turn positive you will be notified, you can also check in with your PCP or the [facility] portal. However, given your symptoms I do not expect they will be positive. Activity: You can do normal everyday activities as your body allows. Take rest breaks if you feel tired. Do not overexert. Stop activity if you have pain, shortness of breath or feel dizzy. Follow-up appointments: Make an appointment with your primary care physician within one week of discharge. A copy of this summary will be sent to them. Every time you see your primary care physician, or any other doctor, bring your medication list, and a list of questions. CONTACT YOUR PRIMARY CARE PROVIDER if you experience any of the following: Shortness of breath or difficulty breathing Fevers or chills Feeling tired with normal activity or experiencing dizziness or fainting Difficulty following your treatment plan, or difficulty taking medications CALL 911 OR GO TO THE EMERGENCY DEPARTMENT if you experience any of the following: Severe abdominal pain or nausea/vomiting Severe chest pain, or chest pain that radiates (moves) to your jaw or arm Sudden, severe shortness of breath or difficulty breathing - significant GI bleeding Thank you for allowing us to participate in your care. Total Time Total Time Spent Total Time Spent (In Minutes): Time spent day of discharge 38 minutes including direct patient care, medication reconciliation, documentation, review of labs and images, and coordination of care. case discussed with GI Coding Level of Care Code 30993 INP/OBS DISCH >30 MIN Diagnoses GI bleed K92.2 Acute blood loss anemia D62 Acute colitis K52.9 HTN (hypertension) I10
--- NOTE | 2025-07-06 11:15 | Electrocardiogram Report ---
Test Reason : Blood Pressure : */* mmHG Vent. Rate : 100 BPM Atrial Rate : 100 BPM P-R Int : 112 ms QRS Dur : 76 ms QT Int : 494 ms P-R-T Axes : * 43 67 degrees QTcB Int : 637 ms Normal sinus rhythm Nonspecific T wave abnormality Abnormal ECG When compared with ECG of 10-Mar-2017 18:00, Nonspecific T wave abnormality is now Present Confirmed by Burke Mehta ([id number]) on 07/06/2025 11:14:44 AM Referred By: REFERRED SELF Confirmed By: Burke Mehta
[2025-07-06 11:35] VITALS: BP 132/65; PULSE 94
== END 2025-07-06 13:17 | disposition home or self-care (01) | DRG 392 ==
LOC: SUATTDRO → ED 04:03 → 2N 07:55 → SUATTDRO 07:55 → 2N 11:50

== ENCOUNTER 2025-07-20 00:23 | Observation (INO) ==
--- NOTE | 2025-07-20 00:39 | Emergency Department Note ---
Impression & Plan Atypical chest pain, Aortic aneurysm Admission ED Provider Note HPI: History obtained from patient. The patient is a 79-year-old female with history of antiphospholipid antibody syndrome, recently stopped anticoagulation secondary to lower GI bleeding, who presents the emergency department with a chief complaint of chest pain. Patient states that she developed some chest pain over about the past 3 to 4 hours. Patient states that the pain is in the substernal area of her chest. Patient states it feels similar to PE that she has had in the past. On arrival here to the ED the patient is otherwise hemodynamically stable, she appears to be in no acute distress on my initial assessment. Patient mentions that she recently had a lower GI bleed and she was taken off of her anticoagulation and therefore was concerned about the possibility of developing a PE. ROS: - Per HPI Differential Diagnosis: Acute coronary syndrome, pulmonary embolism, aortic dissection, esophagitis, acute gastritis, acute pancreatitis, peptic ulcer, duodenitis, amongst other potential pathologies. *Outpatient medications and allergy history reviewed. PE: General: Alert, frail-appearing, no acute distress HEENT: Normocephalic, trachea midline Eyes: Extraocular eye movement is intact, no scleral erythema Pulmonary: Clear to auscultation bilaterally, no wheezing Cardio: Regular rate and rhythm GI: Abdomen is soft to palpation, mild tenderness over the epigastric region : No suprapubic tenderness MSK: No evidence of trauma or malformation of the extremities, no edema Skin: No evidence of rash Neuro: Alert, no focal deficits Psychiatric: Cooperative INDEPENDENT INTERPRETATIONS: pvc monitor: (As interpreted by myself): - An order was placed for continuous cardiac monitoring - Patient was noted to be in sinus rhythm with a rate of 90 EKG: (As interpreted by myself): Rate: 77 Rhythm: Normal sinus rhythm Intervals: Within normal limits ST changes: No ST elevation Time: 0027 Chest x-ray: (As interpreted by myself): No acute disease Interventions provided in ED: - IV morphine, IV Zofran, GI cocktail Medical Decision Making: IV was established and lab work obtained, patient was placed on cardiac monitor technician. Lab work shows a mild leukocytosis at 10.86, hemoglobin is stable at 11.4 which appears improved from previous, platelet count is normal, CMP does not show any evidence of any critical findings, troponin is negative x 1. Lipase is normal. EKG per my interpretation shows normal sinus rhythm. Chest x-ray does not show any evidence of acute disease. CT angiography of the chest was obtained and there is no evidence of PE, there is a thoracic aortic aneurysm measuring 43 mm in maximum diameter. Patient was informed of all the above, she states that despite the above medications she has not had much relief of her chest discomfort. The pain really is in the epigastric region and lower sternum, her CT angiography is unremarkable. Patient was recently admitted for some GI bleeding and at that point declined endoscopy. I discussed admission versus discharge with the patient, she requested that I speak with her daughter over the phone who is a nurse practitioner. Following this discussion with the patient's daughter, she had a discussion with the patient herself. They opted for admission to the hospital for intractable epigastric pain and possibly EGD. Patient was placed on a Protonix bolus and drip. Case was discussed with the on-call hospitalist, Dr. Esposito, and the patient was placed for admission in stable condition. Consultants/Discussions held with other healthcare providers: - Hospitalist, Dr. Esposito Disposition discussion held by myself with: - Patient and patient's daughter over the phone Diagnosis: 1. Epigastric pain/lower chest pain, acute, intractable Disposition: Admission Ben Estrella DO Emergency Medicine Past Med/Surg History Problem List (Updated 07/20/25 @ 03:54 by Ben Estrella DO) Aortic aneurysm (Acute) Atypical chest pain (Acute) GI bleed (Acute) Acute colitis Acute blood loss anemia GI bleed Osteopenia HTN (hypertension) History of pulmonary embolism (~2017) 4-5 YEARS AGO (REASON FOR ELIQUIS) Antiphospholipid antibody syndrome (Chronic) Chronic anticoagulation (Acute) Hypercholesterolemia (Chronic) Hypothyroidism (Chronic) Medical History Sensorineural hearing loss of both ears Anxiety 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 Hx of rheumatic fever AT AGE 12 History of back pain MUSCLE SPASMS IN PAST (REASON FOR FLEXERIL) Osteoporosis Surgical History History of dilatation and curettage History of bilateral tubal ligation History of tooth extraction History of cataract surgery RT H/O colonoscopy Family History Mother Breast cancer Father Stomach cancer Prostate cancer Other No family history of adverse response to anesthesia Denies family history of Ovarian cancer Diabetes Heart disease Myocardial infarction Lung cancer Colorectal cancer Hypertension Stroke Social History Smoking Status: Never smoker Tobacco Type: Cigarettes Age Started Using Tobacco: 21; Age Quit Using Tobacco: 29; packs per day: 0.5; Second Hand Exposure: No; Do You Dip or Chew Tobacco: No; Hx Alcohol Use: No Hx Substance Use: No Preferred Language: [place] Communication Ability: Effective Visual Impairment: No Limitations Hearing Ability: Hard of Hearing Electrolytic De Scaler Required: No Beliefs That Will Affect Care: None marital status: / Current Living Situation: Alone current occupational status: retired How many Children do You have: 2 Feels Safe at Home: Yes Childhood Exposure to Second-Hand Smoke: Yes Diet: regular caffeine: Yes Dental Care, Regularly: Yes Physical Activity Frequency: 3-4 Times per Week Physical Activity Frequency Comment: treadmill Seatbelt Use: always Sunscreen Use: Yes Do you think of yourself as: straight/heterosexual Assistive Devices: None Allergies Allergies Allergy/AdvReac Type Severity Reaction Status Date / Time oxycodone [From OxyIR] AdvReac Intermediate Vomiting Verified 07/20/25 01:21 Home Meds Home Medications Medication Instructions Recorded Confirmed multivitamin (Daily Multi-Vitamin 1 tab PO QAM 07/14/19 07/20/25 tablet) calcium 600 mg (as 1 tab PO BID 05/26/23 07/20/25 carbonate)-vitamin D3 5 mcg (200 unit) tablet baclofen 10 mg tablet 5 mg PO TID PRN muscle spasm 07/13/25 07/20/25 Previous Rx's Medication Instructions Recorded levothyroxine 50 mcg tablet 50 mcg PO DAILY #90 tabs 12/02/24 lovastatin 20 mg tablet 20 mg PO DAILY #90 tabs 12/02/24 telmisartan 40 mg tablet 40 mg PO DAILY #90 tabs 12/02/24 ferrous sulfate 325 mg (65 mg 325 mg PO 3XWK #30 tabs 07/06/25 iron) tablet Results & Data (ED) Vital Signs Vital Signs - 24 hr 07/20/25 00:26 07/20/25 00:29 07/20/25 00:41 Temperature 37.3 C Temperature Source Oral Pulse Rate 87 81 Pulse Rate [Apical] Pulse Rhythm [Apical] Pulse Strength [Apical] Respiratory Rate 20 Respiratory Effort / Characteristics Respiratory Depth Respiratory Pattern Blood Pressure 176/102 H Blood Pressure [Right Arm] Blood Pressure Mean 126 Blood Pressure Mean [Right Arm] Blood Pressure Position [Right Arm] Pulse Oximetry 100 100 Oxygen Delivery Method Room Air Room Air Sepsis Recent Fever Within 48 Hours No Sepsis New/Unexplained Change in Mental Status No Sepsis Action Taken by Nursing No Action Required 07/20/25 00:45 07/20/25 02:00 07/20/25 04:00 Temperature Temperature Source Pulse Rate Pulse Rate [Apical] 86 82 88 Pulse Rhythm [Apical] Regular Pulse Strength [Apical] Normal Respiratory Rate 16 22 20 Respiratory Effort / Characteristics Non-Labored Spontaneous Respiratory Depth Normal Respiratory Pattern Regular Blood Pressure Blood Pressure [Right Arm] 163/96 H 145/86 H 163/95 H Blood Pressure Mean Blood Pressure Mean [Right Arm] 118 105 117 Blood Pressure Position [Right Arm] Lying Pulse Oximetry 95 100 100 Oxygen Delivery Method Room Air Room Air Room Air Sepsis Recent Fever Within 48 Hours Sepsis New/Unexplained Change in Mental Status Sepsis Action Taken by Nursing 07/20/25 04:33 Temperature Temperature Source Pulse Rate 88 Pulse Rate [Apical] Pulse Rhythm [Apical] Pulse Strength [Apical] Respiratory Rate Respiratory Effort / Characteristics Respiratory Depth Respiratory Pattern Blood Pressure Blood Pressure [Right Arm] Blood Pressure Mean Blood Pressure Mean [Right Arm] Blood Pressure Position [Right Arm] Pulse Oximetry Oxygen Delivery Method Sepsis Recent Fever Within 48 Hours Sepsis New/Unexplained Change in Mental Status Sepsis Action Taken by Nursing Laboratory Data 07/20/25 00:34 07/20/25 00:34 Lab Results 07/20/25 07/20/25 Range/Units 00:34 02:59 WBC 10.86 H (4.8-10.8) K/ul RBC 3.68 L (4.20-5.40) M/uL Hgb 11.4 L (12.0-16.0) g/dl Hct 33.0 L (37.0-47.0) % MCV 89.7 (80.0-100.0) fL MCH 31.0 (25.0-34.0) pg MCHC 34.5 (32.0-36.0) g/dL RDW Std Deviation 47.5 H (36.4-46.3) fL RDW Coeff of Eva 14.5 (11.5-14.5) % Plt Count 357 (130-400) K/uL MPV 10.2 (9.4-12.4) fL Immature Gran % (Auto) 0.4 % Neut % (Auto) 65.6 % Lymph % (Auto) 24.9 % [place] % (Auto) 7.3 % Eos % (Auto) 1.1 % Baso % (Auto) 0.7 % Neut # (Auto) 7.13 H (1.40-6.50) K/uL Lymph # (Auto) 2.70 (1.20-3.40) K/uL [place] # (Auto) 0.79 H (0.11-0.59) K/uL Eos # (Auto) 0.12 (0.00-0.50) K/uL Baso # (Auto) 0.08 (0.00-0.20) K/uL Immature Gran # (Auto) 0.04 (0.01-0.20) K/uL PT 11.0 (9.0-12.0) Seconds INR 1.0 (0.9-1.1) Sodium 139 (136-145) mmol/L Potassium 3.4 L (3.5-5.1) mmol/L Chloride 108 H (98-107) mmol/L Carbon Dioxide 21 (21-32) mmol/L Anion Gap 10 (3-11) BUN 18 (6-23) mg/dl Creatinine 0.95 (0.6-1.2) mg/dl Est Cr Clr Drug Dosing 46.3 ml/min eGFR 60.57 BUN/Creatinine Ratio 18.9 (10-20) Glucose 122 H (70-99(Fasting)) mg/dl Calcium 9.8 (8.6-10.3) mg/dl Total Bilirubin 0.5 (0.2-1.0) mg/dl AST 29 (13-39) U/L ALT 22 (7-52) U/L Alkaline Phosphatase 139 H (34-104) U/L Troponin I High Sens 6.2 6.4 (0-14) pg/ml Total Protein 7.2 (6.0-8.3) gm/dl Albumin 3.8 (3.4-5.0) gm/dl Globulin 3.4 (2.5-4.0) gm/dl Albumin/Globulin Ratio 1.1 (0.9-2) Lipase 33 (11-82) U/L Administered Medications Pantoprazole Sodium 40 mg/ (Dextrose) 100 mls @ 20 mls/hr IV Q5H ERICA Stop: 08/19/25 05:44 Last Admin: 07/20/25 06:15 Dose: 8 mg/hr, 20 mls/hr Documented By: JACQUES Discontinued Medications Al Hydrox/Mg Hydrox/Simethicone (Aluminum/Magnesium Susp 30 Ml Udc) 30 ml PO NOW STA Stop: 07/20/25 04:00 Last Admin: 07/20/25 04:06 Dose: 30 ml Documented By: JACQUES Sodium Chloride (Nss) 1,000 mls @ 999 mls/hr IV .Q1H1M ONE Stop: 07/20/25 01:37 Last Infusion: 07/20/25 02:15 Dose: Infused Documented By: abl Admin: 07/20/25 00:45 Dose: 999 mls/hr Documented By: ARSENIO Pantoprazole Sodium 80 mg/ (Dextrose) 120 mls @ 480 mls/hr IV NOW ONE Stop: 07/20/25 05:33 Last Admin: 07/20/25 05:47 Dose: 480 mls/hr Documented By: JACQUES Ioversol (Optiray 320 125ml) 119 ml IV ONCE ONE Stop: 07/20/25 01:39 Last Admin: 07/20/25 01:39 Dose: 119 ml Documented By: FLOR Morphine Sulfate (Morphine Sulfate 4 Mg/Ml 1 Ml Carp\Vial) 4 mg IV NOW STA Stop: 07/20/25 01:41 Last Admin: 07/20/25 02:04 Dose: 4 mg Documented By: abl Ondansetron HCl (Ondansetron Inj 2 Mg/Ml 2 Ml Vial) 4 mg IV NOW STA Stop: 07/20/25 01:41 Last Admin: 07/20/25 02:05 Dose: 4 mg Documented By: abl Pantoprazole Sodium (Pantoprazole Bolus/Drip) 1 each IV NOW STA Stop: 07/20/25 05:20 Last Admin: 07/20/25 05:44 Dose: Not Given Documented By: JACQUES Imaging Data Radiologist's Impression: Chest X-Ray 07/20/25 00:25 EXAM: XR chest 1V portable CLINICAL HISTORY: Chest pain, nonspecific TECHNIQUE: An X-ray image of the chest was obtained in AP projection. 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 FINDINGS: The lungs are clear and well-expanded, with no pulmonary infiltrate or pleural effusion. The cardiomediastinal silhouette is within normal limits. There is no acute osseous abnormality. IMPRESSION: 1. No acute cardiopulmonary disease. No other new or interval abnormality since the prior study. Electronically signed by Chadd Miller 07-20-2025 01:59 AM Chest CTA 07/20/25 00:37 EXAM: CT angio chest PE protocol CLINICAL HISTORY: PE TECHNIQUE: Contiguous axial images were obtained from the neck base through the upper abdomen following intravenous administration of iodinated contrast material. Angiographic images were processed, and 3D MIP images were acquired for interpretation. If IV contrast material had not been administered, the likelihood of detecting abnormalities relevant to the patient's condition would have been substantially decreased. Coronal and sagittal 3D MIPs were likewise performed and indicated to increase the sensitivity of detecting diffuse clinically relevant pathology. CT scan was performed according to ALARA (as low as reasonably achievable). COMPARISON: None. FINDINGS: Aneurysmal dilatation of the ascending aorta with diameter measuring approximately 43 mm. Few atelectatic bands are noted in both lungs. Adequate contrast bolus without evidence of pulmonary embolism. The central airways are patent. The lungs are clear. No pleural effusion. The heart and pulmonary arteries are of normal size and configuration. There are coronary artery and aortic atherosclerotic calcifications. No pericardial effusion is identified. The thyroid is unremarkable. No mediastinal, hilar, or axillary lymphadenopathy is noted. No suspicious lytic or sclerotic osseous lesions are identified. IMPRESSION: Aneurysmal dilatation of the ascending aorta with diameter measuring approximately 43 mm. Few atelectatic bands are noted in both lungs. No obvious pulmonary embolism. Electronically signed by Chadd Miller 07-20-2025 02:43 AM Discharge Plan Visit Data Chief Complaint: Cardiac Assessment Stated Complaint: CHEST DISCOMFORT X2 HOURS ED Provider: Ben Estrella Discharge Problem: Atypical chest pain, Aortic aneurysm Patient Disposition: Home - Self-Care Condition: Good Discharge Instructions Goldy/Other Patient Handouts: Thoracic Aortic Aneurysm, ED [facility] Chest Pain Activity Restrictions/Additional Instructions: Please follow-up with your primary care doctor in 2 to 3 days for reassessment further management. Your EKG and lab work do not suggest any acute damage is going on to your heart. CT angiography of your chest did show evidence of an ascending aortic aneurysm measuring 43 mm in diameter, this will require surveillance in the future but does not require any type of emergent procedure/or surgical repair. Please follow-up with your primary care doctor for further management. Please return to the emergency room if you develop any new or acutely worsening symptoms. Forms Stand Alone Forms: My [facility], Important Visit Information Prescriptions Prescriptions: No Action levothyroxine 50 mcg tablet 50 mcg PO DAILY Qty: 90 3RF Patient Comments: QAM lovastatin 20 mg tablet 20 mg PO DAILY Qty: 90 3RF Patient Comments: QAM telmisartan 40 mg tablet 40 mg PO DAILY Qty: 90 3RF multivitamin [Daily Multi-Vitamin] tablet 1 tab PO QAM Patient Comments: 07/03- otc unable to verify calcium carbonate-vitamin D3 600 mg-5 mcg (200 unit) tablet 1 tab PO BID Patient Comments: 07/03- otc unable to verify baclofen 10 mg tablet 5 mg PO TID PRN (Reason: muscle spasm) ferrous sulfate 325 mg (65 mg iron) tablet 325 mg PO 3XWK Qty: 30 0RF Rx Instructions: MON, WED, & FRI. Referrals Referrals: Apollo Chavez DO [Primary Care Provider] -
[2025-07-20] MEDS: SODIUM CHLORIDE 0.9% 1,000 ML IV ONE (00:45)
[2025-07-20 00:53] LABS: Hematocrit (blood only) 33.0 % (37.0-47.0); Hemoglobin 11.4 g/dl (12.0-16.0); Immature Granulocytes # (auto) 0.04 K/uL (0.01-0.20); Immature Granulocytes % (auto) 0.4 %; Mean Corpuscular Hemoglobin 31.0 pg (25.0-34.0); Mean Corpuscular Volume 89.7 fL (80.0-100.0); Platelet Count 357 K/uL (130-400); RDW Standard Deviation 47.5 fL (36.4-46.3); Red Blood Count 3.68 M/uL (4.20-5.40); White Blood Count 10.86 K/ul (4.8-10.8)
[2025-07-20 01:08] LABS: Alanine Aminotransferase 22.0 U/L (7-52); Albumin Globulin Ratio 1.1 (0.9-2); Albumin Level 3.8 gm/dl (3.4-5.0); Alkaline Phosphatase 139.0 U/L (34-104); Anion Gap 10.0 (3-11); Bilirubin,Total 0.5 mg/dl (0.2-1.0); Blood Urea Nitrogen 18.0 mg/dl (6-23); Calcium 9.8 mg/dl (8.6-10.3); Carbon Dioxide 21.0 mmol/L (21-32); Chloride 108.0 mmol/L (98-107); Creatinine Clr Calc Pharmacy 46.3 ml/min; Globulin 3.4 gm/dl (2.5-4.0); Glucose 122.0 mg/dl (70-99(Fasting)); Lipase 33.0 U/L (11-82); Potassium 3.4 mmol/L (3.5-5.1); Sodium 139.0 mmol/L (136-145); Total Protein 7.2 gm/dl (6.0-8.3)
[2025-07-20 01:16] LABS: INR 1.0 (0.9-1.1); Prothrombin Time 11.0 Seconds (9.0-12.0)
[2025-07-20] MEDS: OPTIRAY 320 125ml IV ONE (01:39)
--- NOTE | 2025-07-20 02:00 | XRay Report ---
EXAM: XR chest 1V portable CLINICAL HISTORY: Chest pain, nonspecific TECHNIQUE: An X-ray image of the chest was obtained in AP projection. 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 FINDINGS: The lungs are clear and well-expanded, with no pulmonary infiltrate or pleural effusion. The cardiomediastinal silhouette is within normal limits. There is no acute osseous abnormality. IMPRESSION: 1. No acute cardiopulmonary disease. No other new or interval abnormality since the prior study. Electronically signed by Chadd Miller 07-20-2025 01:59 AM
[2025-07-20] MEDS: MoRPHine SULFATE 4 MG/ML 1 ML CARP\\VIAL IV STA (02:04)
[2025-07-20] MEDS: ONDANSETRON INJ 2 MG/ML 2 ML VIAL IV STA (02:05)
--- NOTE | 2025-07-20 02:44 | CT Scan Report ---
EXAM: CT angio chest PE protocol CLINICAL HISTORY: PE TECHNIQUE: Contiguous axial images were obtained from the neck base through the upper abdomen following intravenous administration of iodinated contrast material. Angiographic images were processed, and 3D MIP images were acquired for interpretation. If IV contrast material had not been administered, the likelihood of detecting abnormalities relevant to the patient's condition would have been substantially decreased. Coronal and sagittal 3D MIPs were likewise performed and indicated to increase the sensitivity of detecting diffuse clinically relevant pathology. CT scan was performed according to ALARA (as low as reasonably achievable). COMPARISON: None. FINDINGS: Aneurysmal dilatation of the ascending aorta with diameter measuring approximately 43 mm. Few atelectatic bands are noted in both lungs. Adequate contrast bolus without evidence of pulmonary embolism. The central airways are patent. The lungs are clear. No pleural effusion. The heart and pulmonary arteries are of normal size and configuration. There are coronary artery and aortic atherosclerotic calcifications. No pericardial effusion is identified. The thyroid is unremarkable. No mediastinal, hilar, or axillary lymphadenopathy is noted. No suspicious lytic or sclerotic osseous lesions are identified. IMPRESSION: Aneurysmal dilatation of the ascending aorta with diameter measuring approximately 43 mm. Few atelectatic bands are noted in both lungs. No obvious pulmonary embolism. Electronically signed by Chadd Miller 07-20-2025 02:43 AM
[2025-07-20] MEDS: ALUMINUM/MAGNESIUM SUSP 30 ML UDC PO STA (04:06)
[2025-07-20] MEDS: PANTOPRAZOLE BOLUS/DRIP IV STA (05:44)
[2025-07-20] MEDS: PANTOprazole 40 MG in DEXTROSE 5% MINI-B 100 ML IV SCH (06:15)
--- NOTE | 2025-07-20 06:21 | History & Physical Report ---
Date of Service July 20, 2025 Assessment & Plan (1) Atypical chest pain: (2) Antiphospholipid antibody syndrome: (3) HTN (hypertension): (4) Hypercholesterolemia: (5) Hypothyroidism: Plan 79yo female presenting with chest pain #Chest pain - substernal, sharp, severe, pleuritic. No acute EKG changes. Troponin x 2 WNL. CTA with no PE present. CXR with atelectasis present -Telemetry monitoring -Lidoderm patch -Scheduled Tylenol -Protonix 40mg po daily #History of GIB - patient denies ongoing bleed, no melena or hematochezia. No epigastric tenderness on exam. H/H stable. VS stable. Patient and her daughter are interested in her having an EGD now. I informed patient that as there is no evidence that she is actively bleeding at the moment it would be unlikely that GI would perform an inpatient EGD. -Continue Protonix 40mg po daily -Will not formally consult GI at this time #Anti-phospholipid antibody syndrome - patient has been off her Eliquis. She follows with Dr. Pinon of [facility]. Patient still holding her Eliquis from her recent GIB. -Is reasonable to resume Eliquis while inpatient and monitor for bleeding #Hypothyroid -Continue Synthroid #Hypertension/Hyperlipidemia -Continue Lovastatin -Continue Telmisartan History of Present Illness Chief Complaint: chest pain Primary Care Provider: Apollo Chavez, 79yo female with history of anti-phospholipid antibody on anticoagulation recently admitted from 07/03 - 07/06 after presenting with GIB. Patient declined EGD during that hospitalization. Discharged home. Has been doing well. Is taking PO Iron and her blood counts are improving. Remains off anticoagulation at her request. Patient reports developing substernal chest pain last night - severe, between breasts. Concerned that it could be a PE as she has been off her anticoagulation. No fever, chills, cough, SOB, abdominal pain, nausea, vomiting, melena or hematochezia. Pain is pleuritic, non-exertional No additional complaints at this time. In the ER she is afebrile, HD stable ER Course: Protonix gtt Maalox Zofran Allergies Allergy/AdvReac Type Severity Reaction Status Date / Time oxycodone [From OxyIR] AdvReac Intermediate Vomiting Verified 07/20/25 01:21 Home Medications Medication Instructions Recorded Confirmed Type multivitamin (Daily Multi-Vitamin 1 tab PO QAM 07/14/19 07/20/25 History tablet) calcium 600 mg (as 1 tab PO BID 05/26/23 07/20/25 History carbonate)-vitamin D3 5 mcg (200 unit) tablet levothyroxine 50 mcg tablet 50 mcg PO DAILY #90 tabs 12/02/24 07/20/25 Rx lovastatin 20 mg tablet 20 mg PO DAILY #90 tabs 12/02/24 07/20/25 Rx telmisartan 40 mg tablet 40 mg PO DAILY #90 tabs 12/02/24 07/20/25 Rx ferrous sulfate 325 mg (65 mg 325 mg PO 3XWK #30 tabs 07/06/25 07/20/25 Rx iron) tablet baclofen 10 mg tablet 5 mg PO TID PRN muscle spasm 07/13/25 07/20/25 History Past Med/Surg History Problem List Aortic aneurysm (Acute) Atypical chest pain (Acute) GI bleed (Acute) Acute colitis Acute blood loss anemia GI bleed Osteopenia HTN (hypertension) History of pulmonary embolism (~2017) 4-5 YEARS AGO (REASON FOR ELIQUIS) Antiphospholipid antibody syndrome (Chronic) Chronic anticoagulation (Acute) Hypercholesterolemia (Chronic) Hypothyroidism (Chronic) Medical History Sensorineural hearing loss of both ears Anxiety 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 Hx of rheumatic fever AT AGE 12 History of back pain MUSCLE SPASMS IN PAST (REASON FOR FLEXERIL) Osteoporosis Surgical History History of dilatation and curettage History of bilateral tubal ligation History of tooth extraction History of cataract surgery RT H/O colonoscopy Family History Mother Breast cancer Father Stomach cancer Prostate cancer Other No family history of adverse response to anesthesia Denies family history of Ovarian cancer Diabetes Heart disease Myocardial infarction Lung cancer Colorectal cancer Hypertension Stroke Social History Smoking Status: Never smoker Tobacco Type: Cigarettes Age Started Using Tobacco: 21; Age Quit Using Tobacco: 29; packs per day: 0.5; Second Hand Exposure: No; Do You Dip or Chew Tobacco: No; Hx Alcohol Use: No Hx Substance Use: No Preferred Language: Bengali Communication Ability: Effective Visual Impairment: No Limitations Hearing Ability: Hard of Hearing Dog Boarder Required: No Beliefs That Will Affect Care: None marital status: / Current Living Situation: Alone current occupational status: retired How many Children do You have: 2 Feels Safe at Home: Yes Childhood Exposure to Second-Hand Smoke: Yes Diet: regular caffeine: Yes Dental Care, Regularly: Yes Physical Activity Frequency: 3-4 Times per Week Physical Activity Frequency Comment: treadmill Seatbelt Use: always Sunscreen Use: Yes Do you think of yourself as: straight/heterosexual Assistive Devices: None Review of Systems Review of Systems: All systems reviewed & are unremarkable except as noted in HPI & below Physical Exam Physical Exam: General: patient resting comfortably, NAD, non-toxic in appearance, AA&O x 4 Skin: warm, dry, intact, no rashes or lesions HEENT: NC/AT, PERRL, EOMI, anicteric sclera, conjunctiva without injection, external ear normal to inspection and nontender, nares patent, moist mucus membranes, dentition intact, no oropharyngeal lesions, neck supple, trachea midline, no LAD, no thyromegaly, no JVD Heart: +S1/S2, regular, no m/r/g, chest pain with deep breathing, no reproducible chest wall pain Lungs: equal air entry bilaterally, no rales/rhonchi/wheezes Abd: +BS, soft, NT/ND, no masses/organomegaly/ascites Ext: warm, 2+ pulses in UE/LE bilaterally, no clubbing/cyanosis or edema Neuro: nonfocal, patient AA&O x 4, speech intact, no facial droop, moving all extremities on command with equal strength 5/5 Results & Data Results & Data Vital Signs (Past 12 Hours) Vital Signs Temp Pulse Pulse Resp BP BP Pulse Ox 07/20/25 04:33 88 07/20/25 04:00 88 20 163/95 H 100 07/20/25 02:00 82 22 145/86 H 100 07/20/25 00:45 86 16 163/96 H 95 07/20/25 00:41 100 07/20/25 00:29 81 07/20/25 00:26 37.3 C 87 20 176/102 H 100 O2 Del Method 07/20/25 04:33 07/20/25 04:00 Room Air 07/20/25 02:00 Room Air 07/20/25 00:45 Room Air 07/20/25 00:41 Room Air 07/20/25 00:29 07/20/25 00:26 Room Air Laboratory Results Laboratory Results WBC 10.86 K/ul (4.8-10.8) H 07/20/25 00:34 RBC 3.68 M/uL (4.20-5.40) L 07/20/25 00:34 Hgb 11.4 g/dl (12.0-16.0) L 07/20/25 00:34 Hct 33.0 % (37.0-47.0) L 07/20/25 00:34 MCV 89.7 fL (80.0-100.0) 07/20/25 00:34 MCH 31.0 pg (25.0-34.0) 07/20/25 00:34 MCHC 34.5 g/dL (32.0-36.0) 07/20/25 00:34 RDW Std Deviation 47.5 fL (36.4-46.3) H 07/20/25 00:34 RDW Coeff of Eva 14.5 % (11.5-14.5) 07/20/25 00:34 Plt Count 357 K/uL (130-400) 07/20/25 00:34 MPV 10.2 fL (9.4-12.4) 07/20/25 00:34 Immature Gran % (Auto) 0.4 % 07/20/25 00:34 Neut % (Auto) 65.6 % 07/20/25 00:34 Lymph % (Auto) 24.9 % 07/20/25 00:34 [place] % (Auto) 7.3 % 07/20/25 00:34 Eos % (Auto) 1.1 % 07/20/25 00:34 Baso % (Auto) 0.7 % 07/20/25 00:34 Neut # (Auto) 7.13 K/uL (1.40-6.50) H 07/20/25 00:34 Lymph # (Auto) 2.70 K/uL (1.20-3.40) 07/20/25 00:34 [place] # (Auto) 0.79 K/uL (0.11-0.59) H 07/20/25 00:34 Eos # (Auto) 0.12 K/uL (0.00-0.50) 07/20/25 00:34 Baso # (Auto) 0.08 K/uL (0.00-0.20) 07/20/25 00:34 Immature Gran # (Auto) 0.04 K/uL (0.01-0.20) 07/20/25 00:34 PT 11.0 Seconds (9.0-12.0) 07/20/25 00:34 INR 1.0 (0.9-1.1) 07/20/25 00:34 Sodium 139 mmol/L (136-145) 07/20/25 00:34 Potassium 3.4 mmol/L (3.5-5.1) L 07/20/25 00:34 Chloride 108 mmol/L (98-107) H 07/20/25 00:34 Carbon Dioxide 21 mmol/L (21-32) 07/20/25 00:34 Anion Gap 10 (3-11) 07/20/25 00:34 BUN 18 mg/dl (6-23) 07/20/25 00:34 Creatinine 0.95 mg/dl (0.6-1.2) 07/20/25 00:34 Est Cr Clr Drug Dosing 46.3 ml/min 07/20/25 00:34 eGFR 60.57 07/20/25 00:34 BUN/Creatinine Ratio 18.9 (10-20) 07/20/25 00:34 Glucose 122 mg/dl (70-99(Fasting)) H 07/20/25 00:34 Calcium 9.8 mg/dl (8.6-10.3) 07/20/25 00:34 Total Bilirubin 0.5 mg/dl (0.2-1.0) 07/20/25 00:34 AST 29 U/L (13-39) 07/20/25 00:34 ALT 22 U/L (7-52) 07/20/25 00:34 Alkaline Phosphatase 139 U/L (34-104) H 07/20/25 00:34 Troponin I High Sens 6.4 pg/ml (0-14) 07/20/25 02:59 Total Protein 7.2 gm/dl (6.0-8.3) 07/20/25 00:34 Albumin 3.8 gm/dl (3.4-5.0) 07/20/25 00:34 Globulin 3.4 gm/dl (2.5-4.0) 07/20/25 00:34 Albumin/Globulin Ratio 1.1 (0.9-2) 07/20/25 00:34 Lipase 33 U/L (11-82) 07/20/25 00:34 Impressions Chest X-Ray 07/20/25:25 EXAM: XR chest 1V portable CLINICAL HISTORY: Chest pain, nonspecific TECHNIQUE: An X-ray image of the chest was obtained in AP projection. COMPARISON: APRIL 02, 2017, 09:41:09 [employer]. FINDINGS: The lungs are clear and well-expanded, with no pulmonary infiltrate or pleural effusion. The cardiomediastinal silhouette is within normal limits. There is no acute osseous abnormality. IMPRESSION: 1. No acute cardiopulmonary disease. No other new or interval abnormality since the prior study. Electronically signed by Chadd Miller 07-20-2025 01:59 AM Chest CTA 07/20/25 00:37 EXAM: CT angio chest PE protocol CLINICAL HISTORY: PE TECHNIQUE: Contiguous axial images were obtained from the neck base through the upper abdomen following intravenous administration of iodinated contrast material. Angiographic images were processed, and 3D MIP images were acquired for interpretation. If IV contrast material had not been administered, the likelihood of detecting abnormalities relevant to the patient's condition would have been substantially decreased. Coronal and sagittal 3D MIPs were likewise performed and indicated to increase the sensitivity of detecting diffuse clinically relevant pathology. CT scan was performed according to ALARA (as low as reasonably achievable). COMPARISON: None. FINDINGS: Aneurysmal dilatation of the ascending aorta with diameter measuring approximately 43 mm. Few atelectatic bands are noted in both lungs. Adequate contrast bolus without evidence of pulmonary embolism. The central airways are patent. The lungs are clear. No pleural effusion. The heart and pulmonary arteries are of normal size and configuration. There are coronary artery and aortic atherosclerotic calcifications. No pericardial effusion is identified. The thyroid is unremarkable. No mediastinal, hilar, or axillary lymphadenopathy is noted. No suspicious lytic or sclerotic osseous lesions are identified. IMPRESSION: Aneurysmal dilatation of the ascending aorta with diameter measuring approximately 43 mm. Few atelectatic bands are noted in both lungs. No obvious pulmonary embolism. Electronically signed by Chadd Miller 07-20-2025 02:43 AM PG Care Time/CCT Total # of Minutes Spent Total Time Spent with Patient: Total time spent is greater than 50% in coordination of care (as documented) at patient's floor/unit and/or counseling patient: Coding Level of Care Code 32352 INT INP/OBS CARE 2/55MIN Diagnoses Atypical chest pain R07.89 Antiphospholipid antibody syndrome D68.61 HTN (hypertension) I10 Hypercholesterolemia E78.00 Hypothyroidism E03.9
[2025-07-20] MEDS ORDERED: ONDANSETRON INJ 2 MG/ML 2 ML VIAL IV PRN (08:50)
[2025-07-20] MEDS ORDERED: BACLOFEN 10 MG TAB PO PRN (08:50)
[2025-07-20] MEDS: LOVASTATIN 20 MG TAB PO SCH (09:39)
[2025-07-20] MEDS: LEVOTHYROXINE SODIUM 50 MCG TABLET PO SCH (09:39)
[2025-07-20] MEDS: LOSARTAN POTASSIUM 50 MG TAB PO SCH (09:39)
[2025-07-20] MEDS: ACETAMINOPHEN 500 MG TAB PO SCH (09:40)
[2025-07-20] MEDS: LIDOCAINE 5% 1 PATCH TD STA (09:40)
[2025-07-20] MEDS: POTASSIUM CHLORIDE CRTAB 20 MEQ TABCR PO SCH (09:40)
--- NOTE | 2025-07-20 12:42 | Cardiology Consultation ---
Date of Consultation July 20, 2025 Assessment & Plan (1) Atypical chest pain: (2) Aortic aneurysm: Plan 1. Chest pain: Not likely to be ischemic in nature. Her symptoms are somewhat atypical and there is a pleuritic component. Also extended in duration without elevation in cardiac biomarkers. I think we can discount an acute coronary syndrome. She did not receive any anti-inflammatories. I think pericarditis is also less likely. Scheduled for a gastric evaluation tomorrow. Symptoms much improved with morphine and pantoprazole. I will review her echocardiogram, but in the absence of significant abnormalities I do not think she requires further cardiac workup. 2. Aortic aneurysm: Her CTA demonstrated some dilation of the ascending aorta measuring 4.3 cm. Blood pressure appears well-controlled here. This can be followed over time. Avoid fluoroquinolones. History of Present Illness Reason for Consultation: Chest pain Requesting Physician: Delfino Attending Physician: Susanna Esposito, DO History of Present Illness The patient is an 79-year-old woman without a known history of cardiac disease who presented to the emergency room with symptoms of epigastric discomfort. Patient was recently discharged from the hospital after gastrointestinal hemorrhage and associated anemia. She previously been on systemic anticoagulation primarily for antiphospholipid syndrome and a history of pulmonary embolus. Anticoagulation had been discontinued as a result and she was concerned that her symptoms represented a pulmonary embolus. She states that she was simply resting at home when she began experiences epigastric discomfort. It was quite well localized to the epigastric area and fairly focal. There was no radiation to the back, chest, arm or neck. There was a pleuritic component. With deep inspiration she was notably more uncomfortable. Not positional. She did not have overt dyspnea. Her symptoms lasted a few hours at home. She tried a few different remedies without success. She eventually decided to proceed to the emergency room for an evaluation. She was administered some morphine and her symptoms improved. She states that she has very minimal symptom at this time. The pleuritic component is also much improved. She has been less active recently due to a fall over the summertime. Also with her anemia she states she has had more difficulty performing exertion. However, in the past she has not noted limiting dyspnea or exertional chest pain. No symptoms of palpitations. No dizziness or lightheadedness. Allergies Allergy/AdvReac Type Severity Reaction Status Date / Time oxycodone [From OxyIR] AdvReac Intermediate Vomiting Verified 07/20/25 01:21 Home Medications Medication Instructions Recorded Confirmed Type multivitamin (Daily Multi-Vitamin 1 tab PO QAM 07/14/19 07/20/25 History tablet) calcium 600 mg (as 1 tab PO BID 05/26/23 07/20/25 History carbonate)-vitamin D3 5 mcg (200 unit) tablet levothyroxine 50 mcg tablet 50 mcg PO DAILY #90 tabs 12/02/24 07/20/25 Rx lovastatin 20 mg tablet 20 mg PO DAILY #90 tabs 12/02/24 07/20/25 Rx telmisartan 40 mg tablet 40 mg PO DAILY #90 tabs 12/02/24 07/20/25 Rx ferrous sulfate 325 mg (65 mg 325 mg PO 3XWK #30 tabs 07/06/25 07/20/25 Rx iron) tablet baclofen 10 mg tablet 5 mg PO TID PRN muscle spasm 07/13/25 07/20/25 History Patient History Medical History Sensorineural hearing loss of both ears Anxiety 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 Hx of rheumatic fever AT AGE 12 History of back pain MUSCLE SPASMS IN PAST (REASON FOR FLEXERIL) Osteoporosis Surgical History History of dilatation and curettage History of bilateral tubal ligation History of tooth extraction History of cataract surgery RT H/O colonoscopy Family History Mother Breast cancer Father Stomach cancer Prostate cancer Other No family history of adverse response to anesthesia Denies family history of Ovarian cancer Diabetes Heart disease Myocardial infarction Lung cancer Colorectal cancer Hypertension Stroke Social History Smoking Status: Never smoker Tobacco Type: Cigarettes Age Started Using Tobacco: 21; Age Quit Using Tobacco: 29; packs per day: 0.5; Second Hand Exposure: No; Do You Dip or Chew Tobacco: No; Hx Alcohol Use: No Hx Substance Use: No Preferred Language: Pashto Communication Ability: Effective Visual Impairment: No Limitations Hearing Ability: Hard of Hearing Gas Meter Repairer Required: No Beliefs That Will Affect Care: None marital status: / Current Living Situation: Alone current occupational status: retired How many Children do You have: 2 Feels Safe at Home: Yes Childhood Exposure to Second-Hand Smoke: Yes Diet: regular caffeine: Yes Dental Care, Regularly: Yes Physical Activity Frequency: 3-4 Times per Week Physical Activity Frequency Comment: treadmill Seatbelt Use: always Sunscreen Use: Yes Do you think of yourself as: straight/heterosexual Assistive Devices: None Review of Systems Review of Systems: Per HPI Physical Exam Physical Exam: She is alert and oriented x3. Mood affect appear normal. She answered all questions appropriately. HEENT: Sclerae are anicteric. Pupils are equal and reactive to light and accommodation. Extraocular movements were intact. Alopecia Neuro: Cranial nerves intact Lungs: Lungs are clear to auscultation bilaterally. There are no rales wheezes or rhonchi. She has normal respiratory effort without use of accessory muscles. There is normal pulmonary excursion. Cardiac: The rhythm was regular. S1 and S2 were normal. There are no murmurs on examination. The PMI was not markedly displaced on palpation. Extremities: Patient has bilateral radial pulses that are equal in intensity. There is no evidence cyanosis or clubbing. There was no evidence of significant peripheral edema bilaterally. Skin: There are no rashes noted on examination today. Results & Data Vital Signs (Past 12 Hours) Vital Signs Pulse Pulse Resp BP BP Pulse Ox O2 Del Method 07/20/25 11:15 94 H 21 124/82 98 Room Air 07/20/25 08:38 105 H 07/20/25 07:00 93 H 18 151/81 H 97 Room Air 07/20/25 06:00 93 H 20 155/85 H 97 Room Air 07/20/25 04:33 88 07/20/25 04:00 163/95 H 07/20/25 04:00 163/95 H 07/20/25 04:00 163/95 H 07/20/25 04:00 88 20 163/95 H 100 Room Air 07/20/25 02:00 82 22 145/86 H 100 Room Air 07/20/25 00:45 86 16 163/96 H 95 Room Air 07/20/25 00:41 100 Room Air Laboratory Results Abnormal Lab Results 07/20/25 07/20/25 00:34 02:59 WBC 10.86 H RBC 3.68 L Hgb 11.4 L Hct 33.0 L MCV 89.7 MCH 31.0 MCHC 34.5 RDW Std Deviation 47.5 H RDW Coeff of Eva 14.5 Plt Count 357 MPV 10.2 Immature Gran % (Auto) 0.4 Neut % (Auto) 65.6 Lymph % (Auto) 24.9 [place] % (Auto) 7.3 Eos % (Auto) 1.1 Baso % (Auto) 0.7 Neut # (Auto) 7.13 H Lymph # (Auto) 2.70 [place] # (Auto) 0.79 H Eos # (Auto) 0.12 Baso # (Auto) 0.08 Immature Gran # (Auto) 0.04 PT 11.0 INR 1.0 Sodium 139 Potassium 3.4 L Chloride 108 H Carbon Dioxide 21 Anion Gap 10 BUN 18 Creatinine 0.95 Est Cr Clr Drug Dosing 46.3 eGFR 60.57 BUN/Creatinine Ratio 18.9 Glucose 122 H Calcium 9.8 Total Bilirubin 0.5 AST 29 ALT 22 Alkaline Phosphatase 139 H Troponin I High Sens 6.2 6.4 Total Protein 7.2 Albumin 3.8 Globulin 3.4 Albumin/Globulin Ratio 1.1 Lipase 33 ECG Additional Comments: Normal sinus rhythm. No significant ST or T wave changes. PG Care Time/CCT Total # of Minutes Spent Total Time Spent with Patient: Total time spent is greater than 50% in coordination of care (as documented) at patient's floor/unit and/or counseling patient: Coding Level of Care Code 82386 INT INP/OBS CARE 3/75MIN Diagnoses Atypical chest pain R07.89 Aortic aneurysm I71.9
--- NOTE | 2025-07-20 12:44 | Gastrointestinal Consultation ---
Date of Consultation July 20, 2025 Assessment & Plan (1) Atypical chest pain: -IV Protonix 40 mg BID -Keep NPO after midnight -EGD on 07/21/25 to establish if there is a GI relationship to her reported symptoms Supervising Physician Co-Signing Physician Notes Melena, noncardiac chest pain. Differential includes acid reflux peptic ulcer disease less likely neoplasia. History of Present Illness Reason for Consultation: "Chest pain/patient request" Attending Physician: Susanna Esposito DO History of Present Illness Patient is a 79 yo female with PMH of antiphospholipid antibody syndrome on anticoagulation who was hospitalized in June after presenting with dark stools. She was seen by GI during that admission and declined EGD. She went home and had been feeling well. Her H/H is improved at 11.4/33.0. She has been off anticoagulation due to her own concerns. She returned to the hospital when she developed chest pain last evening. It was severe. She denied associated fever, chills, SOB, abdominal pain, nausea, vomiting, or any GI bleeding. It does not appear she has a PPI on her home med list. In the ED, no concerning EKG findings. Troponin within normal limits. CTA Chest IMPRESSION: Aneurysmal dilatation of the ascending aorta with diameter measuring approximately 43 mm. Few atelectatic bands are noted in both lungs. No obvious pulmonary embolism She is eating a tray of food at the time of my visit. Allergies Allergy/AdvReac Type Severity Reaction Status Date / Time oxycodone [From OxyIR] AdvReac Intermediate Vomiting Verified 07/20/25 01:21 Home Medications Medication Instructions Recorded Confirmed Type multivitamin (Daily Multi-Vitamin 1 tab PO QAM 07/14/19 07/20/25 History tablet) calcium 600 mg (as 1 tab PO BID 05/26/23 07/20/25 History carbonate)-vitamin D3 5 mcg (200 unit) tablet levothyroxine 50 mcg tablet 50 mcg PO DAILY #90 tabs 12/02/24 07/20/25 Rx lovastatin 20 mg tablet 20 mg PO DAILY #90 tabs 12/02/24 07/20/25 Rx telmisartan 40 mg tablet 40 mg PO DAILY #90 tabs 12/02/24 07/20/25 Rx ferrous sulfate 325 mg (65 mg 325 mg PO 3XWK #30 tabs 07/06/25 07/20/25 Rx iron) tablet baclofen 10 mg tablet 5 mg PO TID PRN muscle spasm 07/13/25 07/20/25 History Patient History Medical History Sensorineural hearing loss of both ears Anxiety 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 Hx of rheumatic fever AT AGE 12 History of back pain MUSCLE SPASMS IN PAST (REASON FOR FLEXERIL) Osteoporosis Surgical History History of dilatation and curettage History of bilateral tubal ligation History of tooth extraction History of cataract surgery RT H/O colonoscopy Family History Mother Breast cancer Father Stomach cancer Prostate cancer Other No family history of adverse response to anesthesia Denies family history of Ovarian cancer Diabetes Heart disease Myocardial infarction Lung cancer Colorectal cancer Hypertension Stroke Social History Smoking Status: Former smoker Tobacco Type: Cigarettes Age Started Using Tobacco: 21; Age Quit Using Tobacco: 29; packs per day: 0.5; Second Hand Exposure: No; Do You Dip or Chew Tobacco: No; Hx Alcohol Use: No Hx Substance Use: No Preferred Language: Eritrean Communication Ability: Effective Visual Impairment: No Limitations Hearing Ability: Hard of Hearing Industrial Maintenance Manager Required: No Beliefs That Will Affect Care: None marital status: / Current Living Situation: Alone current occupational status: retired How many Children do You have: 2 Feels Safe at Home: Yes Childhood Exposure to Second-Hand Smoke: Yes Diet: regular caffeine: Yes Dental Care, Regularly: Yes Physical Activity Frequency: 3-4 Times per Week Physical Activity Frequency Comment: treadmill Seatbelt Use: always Sunscreen Use: Yes Do you think of yourself as: straight/heterosexual Assistive Devices: Hearing Aid - Bilateral Review of Systems Constitutional: no fever and no chills Respiratory: no cough and no dyspnea Cardiovascular: + chest pain Gastrointestinal: + abdominal pain (epigastric pain); no h eartburn, no nausea, no vomiting, no dysphagia, no blood in stools and no melena Physical Exam Constitutional: well developed Respiratory: normal respiratory effort Cardiovascular: Rate/Rhythm: regular rate Gastrointestinal (Abdomen): normal bowel sounds, soft, nontender, no hepatosplenomegaly Psychiatric: Orientation: alert and oriented x 3 Results & Data Vital Signs (Past 12 Hours) Vital Signs Pulse Pulse Resp BP BP Pulse Ox O2 Del Method 07/20/25 11:15 94 H 21 124/82 98 Room Air 07/20/25 08:38 105 H 07/20/25 07:00 93 H 18 151/81 H 97 Room Air 07/20/25 06:00 93 H 20 155/85 H 97 Room Air 07/20/25 04:33 88 07/20/25 04:00 163/95 H 07/20/25 04:00 163/95 H 07/20/25 04:00 163/95 H 07/20/25 04:00 88 20 163/95 H 100 Room Air 07/20/25 02:00 82 22 145/86 H 100 Room Air 07/20/25 00:45 86 16 163/96 H 95 Room Air 07/20/25 00:41 100 Room Air PG Care Time/CCT Total # of Minutes Spent Total Time Spent with Patient: Total time spent is greater than 50% in coordination of care (as documented) at patient's floor/unit and/or counseling patient: Coding Level of Care Code 61052 INT INP/OBS CARE 3/75MIN Diagnoses Atypical chest pain R07.89
--- NOTE | 2025-07-20 15:51 | XCELERA ---
[id number] [id number]
[2025-07-20] MEDS: SODIUM CHLORIDE 0.9% 1,000 ML IV SCH (16:01)
--- NOTE | 2025-07-20 18:19 | Electrocardiogram Report ---
Test Reason : Blood Pressure : */* mmHG Vent. Rate : 77 BPM Atrial Rate : 77 BPM P-R Int : 170 ms QRS Dur : 76 ms QT Int : 376 ms P-R-T Axes : * 46 62 degrees QTcB Int : 425 ms Normal sinus rhythm with sinus arrhythmia Normal ECG When compared with ECG of 03-Jul-2025 04:10, Nonspecific T wave abnormality no longer evident in Anterior leads QT has shortened Confirmed by Stevenson Scott ([id number]) on 07/20/2025 6:18:59 PM Referred By: REFERRED SELF Confirmed By: Stevenson Scott
[2025-07-20] MEDS: PANTOprazole 40 MG/10 ML SYR IV SCH (20:06)
[2025-07-20] MEDS: REMOVE LIDODERM PATCH SCH (20:07)
[2025-07-21 06:35] LABS: Hematocrit (blood only) 29.3 % (37.0-47.0); Hemoglobin 9.4 g/dl (12.0-16.0); Mean Corpuscular Hemoglobin 29.7 pg (25.0-34.0); Mean Corpuscular Volume 92.7 fL (80.0-100.0); Platelet Count 262 K/uL (130-400); RDW Standard Deviation 50.2 fL (36.4-46.3); Red Blood Count 3.16 M/uL (4.20-5.40); White Blood Count 6.82 K/ul (4.8-10.8)
[2025-07-21 07:15] LABS: Anion Gap 5.0 (3-11); Calcium 8.7 mg/dl (8.6-10.3); Carbon Dioxide 23.0 mmol/L (21-32); Chloride 111.0 mmol/L (98-107); Potassium 4.0 mmol/L (3.5-5.1); Sodium 139.0 mmol/L (136-145)
[2025-07-21 07:21] LABS: Blood Urea Nitrogen 12.0 mg/dl (6-23); Creatinine Clr Calc Pharmacy 49.8 ml/min; Glucose 105.0 mg/dl (70-99(Fasting))
[2025-07-21 08:47] LABS: Iron 17.0 mcg/dl (35-150); Total Iron Binding Cap Calc 242.0 mcg/dl (250-450); Transferrin 173.0 mg/dl (200-360); Transferrin (FE) Percent Satur 7.0 % (15-50)
--- NOTE | 2025-07-21 09:03 | History & Physical Bridge Note ---
Date of Service July 21, 2025 History & Physical Bridge Note I have examined the patient, reviewed the History & Physical and in the interval since the performance of the History & Physical I have noted the following changes of clinical significance: Patient's H/H did decline to 9.4/29.3. A dark stool was charted on 07/20/25. Patient denies this, but it is in nursing reports. No abdominal pain. She continues on a PPI. Keep NPO and proceed with EGD today. Supervising Physician Co-Signing Physician Notes Agree with JILLIAN Collado as above Continued dark stool with decreased H/H from yesterday. Abd: Soft, Tender, ND, +BS Proceed with EGD now Further recommendations to follow
--- NOTE | 2025-07-21 10:20 | Anesthesiology Consultation ---
Date of Service July 21, 2025 Assessment & Plan Chart Review Chart Review: Acceptable Risk for Surgery and Patient NOT seen in Pre Admission Testing History Surgery Operation Date: 07/21/25 16:30 Proposed Procedures p Esophagogastroduodenoscopy Dr Tovar - Torsten Muñoz Case, DO Height/Weight Height: 5 ft 5 in Weight: 65 kg Allergies Allergy/AdvReac Type Severity Reaction Status Date / Time oxycodone [From OxyIR] AdvReac Intermediate Vomiting Verified 07/20/25 01:21 Medications Home Medications Medication Instructions Recorded Confirmed Last Taken multivitamin (Daily Multi-Vitamin 1 tab PO QAM 07/14/19 07/20/25 07/19/25 tablet) calcium 600 mg (as 1 tab PO BID 05/26/23 07/20/25 07/19/25 carbonate)-vitamin D3 5 mcg (200 unit) tablet levothyroxine 50 mcg tablet 50 mcg PO DAILY #90 tabs 12/02/24 07/20/25 07/19/25 lovastatin 20 mg tablet 20 mg PO DAILY #90 tabs 12/02/24 07/20/25 07/19/25 telmisartan 40 mg tablet 40 mg PO DAILY #90 tabs 12/02/24 07/20/25 07/19/25 ferrous sulfate 325 mg (65 mg 325 mg PO 3XWK #30 tabs 07/06/25 07/20/25 07/18/25 iron) tablet baclofen 10 mg tablet 5 mg PO TID PRN muscle spasm 07/13/25 07/20/25 Unknown Active Medications Generic Name Dose Route Start Last Admin Trade Name Freq PRN Reason Stop Dose Admin Acetaminophen 1,000 mg 07/20/25 09:00 07/21/25 09:02 Acetaminophen 500 Mg Tab PO 08/19/25 08:59 1,000 mg TID ERICA Administration Pantoprazole Sodium 40 mg in 10 mls @ 5 mls/min 07/20/25 21:00 07/21/25 08:50 Protonix IV 08/19/25 20:59 5 mls/min BID ERICA Administration Levothyroxine Sodium 50 mcg 07/20/25 09:00 07/21/25 06:02 Levothyroxine Sodium 50 Mcg Tablet PO 08/19/25 08:59 50 mcg DAILYBB ERICA Administration Losartan Potassium 50 mg 07/20/25 09:00 07/21/25 09:02 Losartan Potassium 50 Mg Tab PO 08/19/25 08:59 50 mg DAILY ERICA Administration Lovastatin 20 mg 07/20/25 09:00 07/21/25 09:02 Lovastatin 20 Mg Tab PO 08/19/25 08:59 20 mg DAILY ERICA Administration Miscellaneous 1 each 07/20/25 21:00 07/20/25 20:07 Remove Lidoderm Patch N/A 08/19/25 20:59 Not Given DAILY@2100 [facility] Potassium Chloride 40 meq 07/20/25 09:00 07/20/25 09:40 Potassium Chloride Crtab 20 Meq Tabcr PO 08/19/25 08:59 40 meq QAM ERICA Administration Past Medical History Medical History Sensorineural hearing loss of both ears Anxiety 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 Hx of rheumatic fever AT AGE 12 History of back pain MUSCLE SPASMS IN PAST (REASON FOR FLEXERIL) Osteoporosis Past Family History Family History Mother Breast cancer Father Stomach cancer Prostate cancer Other No family history of adverse response to anesthesia Denies family history of Ovarian cancer Diabetes Heart disease Myocardial infarction Lung cancer Colorectal cancer Hypertension Stroke Past Surgical History Surgical History History of dilatation and curettage History of bilateral tubal ligation History of tooth extraction History of cataract surgery RT H/O colonoscopy Social History Smoking Status: Former smoker Do You Dip or Chew Tobacco: No Hx Alcohol Use: No Hx Substance Use: No Physical Exam Vital Signs Last Vital Signs Temp 36.7 C 07/21/25 07:34 Pulse 85 07/21/25 07:34 Resp 18 07/21/25 07:34 BP 152/83 H 07/21/25 07:34 Pulse Ox 98 07/21/25 07:34 O2 Del Method Room Air 07/21/25 07:34 Testing Laboratory Results 07/21/25 06:18 07/21/25 06:18 PT 11.0 Seconds (9.0-12.0) 07/20/25 00:34 INR 1.0 (0.9-1.1) 07/20/25 00:34
[2025-07-21 10:51] VITALS: TEMP 96.8
[2025-07-21] MEDS: SODIUM CHLORIDE 0.9% 500 ML IV SCH (10:53)
[2025-07-21 11:43] VITALS: RESP 20
--- NOTE | 2025-07-21 11:51 | GI REPORT ---
[facility] Patient: JACKIE SHELTON : 1945 Sex at : Female Age: 79 Years Procedure: Upper GI endoscopy Date: 07/21/2025 Attending Physician: Torsten Tovar DO Referring MD: Referred Self Indications: - Melena Medications: - Monitored Anesthesia Care Complications: - No immediate complications. Estimated Blood Loss: - Estimated blood loss: None. Procedure: - Prior to the procedure, a History and Physical was performed, and patient medications and allergies were reviewed. The patient's tolerance of previous anesthesia was also reviewed. The risks and benefits of the procedure and the sedation options and risks were discussed with the patient. All questions were answered, and informed consent was obtained. Prior Anticoagulants: The patient has taken no anticoagulant or antiplatelet agents. ASA Grade Assessment: III - A patient with severe systemic disease. After reviewing the risks and benefits, the patient was deemed in satisfactory condition to undergo the procedure. - The egd scope was introduced through the mouth and advanced to the third part of the duodenum. - The upper GI endoscopy was accomplished without difficulty. - The patient tolerated the procedure well. Findings: - One benign-appearing, intrinsic moderate stenosis was found in the distal esophagus. This stenosis measured 11 mm (inner diameter) x 2 cm (in length). The stenosis was traversed. A TTS dilator was passed through the scope. Dilation with a 12-13.5-15 mm balloon (to a maximum balloon size of 15 mm) dilator was performed 15 mm. The dilation site was examined and showed moderate improvement in luminal narrowing. - Localized moderate inflammation characterized by erythema and erosions was found in the gastric antrum. Biopsies were taken with a cold forceps for histology. - The examined duodenum was normal. Impression: - Benign-appearing esophageal stenosis. Dilated with a 12-13.5-15 mm balloon (to a maximum balloon size of 15 mm). - Gastritis, characterized by erythema and erosions. Biopsied. - Normal examined duodenum. Recommendation: - Return patient to hospital [facility] for ongoing care. - Resume previous diet. - Continue present medications. - Use Protonix (pantoprazole) 40 mg PO BID. - Await pathology results. - Return to primary care physician as previously scheduled. - Patient has a contact number available for emergencies. The signs and symptoms of potential delayed complications were discussed with the patient. Return to normal activities tomorrow. Written discharge instructions were provided to the patient. Procedure Code(s): - 20713, Esophagogastroduodenoscopy, flexible, transoral; with transendoscopic balloon dilation of esophagus (less than 30 mm diameter) - 69106-66, Esophagogastroduodenoscopy, flexible, transoral; with biopsy, single or multiple Diagnosis Code(s): - K92.1, Melena (includes Hematochezia) - K22.2, Esophageal obstruction - K29.70, Gastritis, unspecified, without bleeding CPT(R) - 202 copyright [employer]. All Rights Reserved. The CPT codes, CCI edits and ICD codes generated are intended as suggestions and were generated based on input data. These codes are preliminary and upon pet store merchandiser review may be revised to meet current compliance and payer requirements. The provider is responsible for the final determination of appropriate codes, and modifiers. Dr. Torsten Tovar, DO This document has been electronically signed. Note Initiated:07/21/2025 Note Completed:07/21/2025 11:50 AM \\[email or web address]\Provation\Results\[email or web address]\[id number]
[2025-07-21 12:11] VITALS: BP 118/53; PULSE 74; O2SAT 97
[2025-07-21] MEDS: LIDOCAINE 2% 2 ML VIAL/AMP(20MG/ML) INFIL ONE (13:02)
[2025-07-21] MEDS: PROPOFOL IV EMULSION 10 MG/ML 20 ML VIAL IV ONE (13:03)
--- NOTE | 2025-07-21 15:00 | Anesthesiology Progress Note ---
Date of Service July 21, 2025 Anesthesia Post Procedure Vital Signs Vital Signs: Temp Pulse Pulse Pulse Resp BP Pulse Ox 07/21/25 12:09 74 20 118/53 L 97 07/21/25 11:54 80 20 106/55 L 96 07/21/25 11:39 82 20 100/53 L 97 07/21/25 10:47 36 C L 94 H 18 165/89 H 97 07/21/25 07:34 36.7 C 85 18 152/83 H 98 07/21/25 04:22 88 07/21/25 04:00 36.5 C 82 18 130/72 97 07/20/25 23:36 36.6 C 78 18 113/69 97 07/20/25 19:44 36.6 C 84 18 120/73 96 07/20/25 15:06 36.6 C 61 18 120/74 96 07/20/25 15:03 81 O2 Del Method 07/21/25 12:09 Room Air 07/21/25 11:54 Room Air 07/21/25 11:39 Room Air 07/21/25 10:47 Room Air 07/21/25 07:34 Room Air 07/21/25 04:22 07/21/25 04:00 Room Air 07/20/25 23:36 Room Air 07/20/25 19:44 Room Air 07/20/25 15:06 Room Air 07/20/25 15:03 Transfer of Care Handoff Completed per policy Notes Mental Status: alert / awake / arousable Patient Amnestic to Procedure: Yes Nausea / Vomiting: adequately controlled Pain: adequately controlled Airway Patency, RR, SpO2: stable & adequate BP & HR: stable & adequate Hydration State: stable & adequate Anesthetic Complications: no major complications apparent and Pt Satisfied with anesthetic care
--- NOTE | 2025-07-21 15:35 | Discharge Summary ---
Discharge Summary Date of Service July 21, 2025 Principal Dx & Hospital Course #1 = Principal Diagnosis (1) Atypical chest pain: (2) Antiphospholipid antibody syndrome: (3) HTN (hypertension): (4) Hypercholesterolemia: (5) Hypothyroidism: Plan 79yo female presenting with chest pain #Chest pain - substernal, sharp, severe, pleuritic. No acute EKG changes. Troponin x 2 WNL. CTA with no PE present. CXR with atelectasis present -Telemetry monitoring -Lidoderm patch -Scheduled Tylenol -Protonix 40mg po daily -consulted card and GI: appears camille more GI in nayture. EGD: showed Benign-appearing esophageal stenosis. Dilated with a 12-13.5-15 mm balloon (to a maximum balloon size of 15 mm). - Gastritis, characterized by erythema and erosions. Biopsied. Will discharge on oral PPI BID. #History of GIB - patient denies ongoing bleed, no melena or hematochezia. No epigastric tenderness on exam. H/H stable. VS stable. Patient and her daughter are interested in her having an EGD now. -Continue Protonix 40mg po BID #Anti-phospholipid antibody syndrome - patient has been off her Eliquis. She follows with Dr. Pinon of [facility]. Patient still holding her Eliquis from her recent GIB. -will defer resuming until PCP followup. #Hypothyroid -Continue Synthroid #Hypertension/Hyperlipidemia -Continue Lovastatin -Continue Telmisartan Admission HPI Per Admitting Provider 79yo female with history of anti-phospholipid antibody on anticoagulation recently admitted from 07/03 - 07/06 after presenting with GIB. Patient declined EGD during that hospitalization. Discharged home. Has been doing well. Is taking PO Iron and her blood counts are improving. Remains off anticoagulation at her request. Patient reports developing substernal chest pain last night - severe, between breasts. Concerned that it could be a PE as she has been off her anticoagulation. No fever, chills, cough, SOB, abdominal pain, nausea, vomiting, melena or hematochezia. Pain is pleuritic, non-exertional No additional complaints at this time. In the ER she is afebrile, HD stable ER Course: Protonix gtt Maalox Zofran Discharge Exam Constitutional WD/WN, vitals as above Neck trachea midline, no thyromegaly Respiratory normal respiratory effort, lungs clear to auscultation Cardiovascular RRR, no murmur, no edema Discharge Plan Discharge Items Patient Disposition: Home - Self-Care Reason For Visit: CHEST PAIN Discharge Diagnosis: chest pain Condition on Discharge: Good Activity: Resume your previous activity Non-emergency contact: Primary Care Provider Call non-emergency contact if: you have any medication questions Follow-up/Referrals: Apollo Chavez, [Primary Care Provider] - 07/28/25 11:30 am Diet: Regular Addtl Attending Provider Instructions: Recommend folllowup with Dr. Chavez in 1 week. Recommend recheking hemoglobin on Friday. Pending Studies at Discharge: No Stand-Alone Forms: My [employer], Smoking Cessation Medications and DC Order Prescriptions: New pantoprazole 40 mg tablet,delayed release (DR/EC) 40 mg PO BID Qty: 60 0RF Continued levothyroxine 50 mcg tablet 50 mcg PO DAILY Qty: 90 3RF Patient Comments: QAM lovastatin 20 mg tablet 20 mg PO DAILY Qty: 90 3RF Patient Comments: QAM telmisartan 40 mg tablet 40 mg PO DAILY Qty: 90 3RF multivitamin [Daily Multi-Vitamin] tablet 1 tab PO QAM Patient Comments: 07/03- otc unable to verify calcium carbonate-vitamin D3 600 mg-5 mcg (200 unit) tablet 1 tab PO BID Patient Comments: 07/03- otc unable to verify baclofen 10 mg tablet 5 mg PO TID PRN (Reason: muscle spasm) ferrous sulfate 325 mg (65 mg iron) tablet 325 mg PO 3XWK Qty: 30 0RF Rx Instructions: FRI, FRI, & FRI. Discharge Orders: Discharge Order (Routine); Ordered 07/21/25 Ordered By: Shane Saleh Admission Data Admit Date/Time: 07/20/25 06:20 Attending Provider: Shane Saleh Admit Provider: Susanna Esposito Primary Care Provider: Apollo Chavez Other Providers: Susanna Esposito; Stevenson Scott; Mihaela Masters; Torsten Tovar; Lissette Benedict; Karen Sarmiento; Rose Pavon; Tram Peck; Bhavik Dawkins; Johnnie Green; Matthew Bo; Ede Zapien; Marlin Stewart; Maya Irving; Mely Jain; Nicole Martinez; Azra Rosario; John Fabian; Liang Mcleod; Angely Potter; Adrian Taveras Jr; Dima Pate; Ethan Drummond; Quentin Crockett; Richard Strong; Shauna Antony; Norm Bello I; Griselda Rubio; Jhonatan Sherman; Jama Reynoso; Smooth Torres; Milo Jim; Clarisa Goyal Other Interventions: Discharge Summary Assessment (RN) Last Done: 07/21/25 12:16 Hospital Stay Data Consultations 07/20/25 05:27 ED Decision to Admit Stat 07/20/25 09:37 Consult Cardiology Routine 07/20/25 09:42 Consult Gastroenterology Routine Procedures Performed Operation Date: 07/21/25 16:30 Actual Procedures p Colonoscopy Biopsy Dilation - Torsten G. Case, DO Diagnostic Imagining Performed 07/20/25 00:37 CT angio chest PE protocol Stat Pending Results Patient Have Any Pending Studies at Discharge: No Discharge Instructions Given to Patient (Per Discharging Provider) Recommend folllowup with Dr. Chavez in 1 week. Recommend recheking hemoglobin on Friday. Total Time Total Time Spent Total Time Spent (In Minutes): 35 Coding Level of Care Code 99489 INP/OBS DISCH >30 MIN Diagnoses Atypical chest pain R07.89 Antiphospholipid antibody syndrome D68.61 HTN (hypertension) I10 Hypercholesterolemia E78.00 Hypothyroidism E03.9
== END 2025-07-21 17:32 | disposition home or self-care (01) ==
LOC: SUATTDRO → EDINP 00:23 → ED 00:23 → SUATTDRO 06:20 → 2N 13:01
DX: I10 Essential (primary) hypertension; Z87.891 Personal history of nicotine dependence; D68.61 Antiphospholipid syndrome; K22.2 Esophageal obstruction; Z86.711 Personal history of pulmonary embolism; K92.1 Melena; Z79.890 Hormone replacement therapy; E78.00 Pure hypercholesterolemia, unspecified; I71.9 Aortic aneurysm of unspecified site, without rupture; Z88.5 Allergy status to narcotic agent; K29.50 Unspecified chronic gastritis without bleeding; E03.9 Hypothyroidism, unspecified; R07.89 Other chest pain; Z79.899 Other long term (current) drug therapy